=== PATIENT | female | born 1960 | race Caucasian/White ===

== ENCOUNTER 2017-08-02 13:09 | Observation (INO) | payer BC, OTHER ==
[2017-08-02 13:18] LABS: Glucose,Whole Blood 84 mg/dL (75-99)
--- NOTE | 2017-08-02 13:26 | ED ---
Weakness HPI - General Chief complaint: Weakness Stated complaint: poss cva Time Seen by Provider: 08/02/17 13:09 Source: patient, EMS, RN notes reviewed Mode of arrival: EMS Limitations: no limitations - History of Present Illness Initial comments: This is a 48-year-old female with a history of pain ductus arteriosus with repair in 1962 also history of hypertension and history of a seizure 1990 after having hyponatremia which she attributes to her Crohn's disease she also status post a colostomy. She states she started developing around 11 or 11:30 today some generalized weakness per paramedics who brought her and she had some delay in her speech but no focal weakness she initially had no headache and later complaining of a mild headache nonspecific. She had glucose 118. BP of 120/70 and heart rate of 80. She denies any recent fevers chills nausea vomiting sweats. She is a smoker we did discuss smoking cessation. MD Complaint: generalized weakness, lack of energy - Related Data Home Medications Medication Instructions Recorded Confirmed Esomeprazole Magnesium [NexIUM] 40 mg PO DAILY 01/07/14 08/02/17 Montelukast [Singulair] 10 mg PO DAILY 01/07/14 08/02/17 Sucralfate [Carafate] 1 gm PO BID 01/07/14 08/02/17 ALPRAZolam [Xanax] 0.5 mg PO DAILY PRN 08/02/17 08/02/17 Carisoprodol [Soma] 350 mg PO TID PRN 08/02/17 08/02/17 Ergocalciferol (Vitamin D2) 50,000 unit PO Q14D 08/02/17 08/02/17 [Vitamin D2] Magnesium Gluconate [Magonate] 500 mg PO DAILY 08/02/17 08/02/17 Metoprolol Tartrate [Lopressor] 12.5 mg PO BID 08/02/17 08/02/17 Zolpidem Tartrate [Ambien Cr] 12.5 mg PO HS PRN 08/02/17 08/02/17 Previous Rx's Medication Instructions Recorded Aspirin 81 mg PO DAILY #30 chew 01/08/14 Atorvastatin [Lipitor] 40 mg PO HS #30 tablet 01/08/14 Allergies Allergy/AdvReac Type Severity Reaction Status Date / Time ciprofloxacin [From Cipro] Allergy Swelling Verified 08/02/17 14:27 ciprofloxacin HCl Allergy Swelling Verified 08/02/17 14:27 [From Cipro] erythromycin base Allergy Vomiting Verified 08/02/17 14:27 [Erythromycin Base] morphine Allergy Vomiting Verified 08/02/17 14:27 povidone-iodine Allergy Rash/Hives Verified 08/02/17 14:27 [From Betadine] soap [From Betadine] Allergy Rash/Hives Verified 08/02/17 14:27 mushrooms Allergy Anaphylaxis Uncoded 11/05/14 16:46 Review of Systems ROS Statement: Those systems with pertinent positive or pertinent negative responses have been documented in the HPI. ROS Other: All systems not noted in ROS Statement are negative. 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, seasonal allergies, had 1 seizure in related to hyponeutremia melena PDA repair at 1 years of age, rotator cuff repair right sided lumpectomy total colectomy and ileostomy 1990 tonsillectomy and adenoidectomy is a cell carcinoma removed History of Any Multi-Drug Resistant Organisms: None Reported Past Surgical History: Bowel Resection, Breast Surgery Additional Past Surgical History / Comment(s): colectomy secondary to chrohns resulting in ileostomy, heart surgery when 1years old, bilateral rotator cuff, epidural back injections Past Anesthesia/Blood Transfusion Reactions: No Reported Reaction Past Psychological History: No Psychological Hx Reported Smoking Status: Light tobacco smoker Past Alcohol Use History: None Reported Past Drug Use History: None Reported - Past Family History Mother Family Medical History: Cancer, Coronary Artery Disease (CAD), Hypertension Additional Family Medical History / Comment(s): pt has had 1 seizure related to hyponeutremia Father Family Medical History: Coronary Artery Disease (CAD) General Exam - General Exam Comments Initial Comments: This is a well-developed well-nourished awake alert oriented 1 female Limitations: no limitations General appearance: alert, in no apparent distress Head exam: Present: atraumatic, normocephalic, normal inspection Eye exam: Present: normal appearance, PERRL, EOMI. Absent: scleral icterus, conjunctival injection, periorbital swelling ENT exam: Present: mucous membranes dry Neck exam: Present: normal inspection. Absent: tenderness, meningismus, lymphadenopathy Respiratory exam: Present: decreased breath sounds, other (Slightly decreased breath sounds with scattered wheezes that clear with deep breathing. No focal consolidations.). Absent: respiratory distress, wheezes, rales, rhonchi, stridor Cardiovascular Exam: Present: regular rate, normal rhythm, normal heart sounds. Absent: systolic murmur, diastolic murmur, rubs, gallop, clicks GI/Abdominal exam: Present: soft, normal bowel sounds. Absent: distended, tenderness, guarding, rebound, rigid Extremities exam: Present: normal inspection, full ROM, normal capillary refill. Absent: tenderness, pedal edema, joint swelling, calf tenderness Back exam: Present: normal inspection Neurological exam: Present: alert, oriented X3, CN II-XII intact Psychiatric exam: Present: normal affect, normal mood Skin exam: Present: warm, dry, intact, normal color. Absent: rash Course Vital Signs 08/02/17 08/02/17 08/02/17 13:12 13:21 14:21 Temperature 97.5 F L Pulse Rate 77 77 77 Respiratory 16 16 16 Rate Blood Pressure 133/79 111/64 111/64 O2 Sat by Pulse 99 97 96 Oximetry 08/02/17 15:43 Temperature Pulse Rate 76 Respiratory 16 Rate Blood Pressure 117/73 O2 Sat by Pulse 98 Oximetry - Reevaluation(s) Reevaluation #1: 08/02/17 15:48 We did discuss the findings. The patient and were present I did discuss the findings the patient's who did see the patient this morning she did have some evidence of service expressive aphasia and some difficulty walking which seemed to resolve relatively quickly. The presentation consistent with TIA EKG Findings - EKG Results: EKG: interpreted by ERMD, sinus rhythm (Sinus rhythm rate is 77 PA interval 174 QRS of 92 T-System QTC of 388/439 evidence of possible left atrial enlargement rightward axis no acute ST-T wave changes.) Medical Decision Making - Medical Decision Making Discuss [employer] the patient and her and her sister who was present. Patient be admitted for evaluation of TIA. - Lab Data Result diagrams: 08/02/17 13:34 08/02/17 13:34 Lab Results 08/02/17 08/02/17 08/02/17 Range/Units 13:16 13:34 13:34 WBC (3.8-10.6) k/uL RBC (3.80-5.40) m/uL Hgb (11.4-16.0) gm/dL Hct (34.0-46.0) % MCV (80.0-100.0) fL MCH (25.0-35.0) pg MCHC (31.0-37.0) g/dL RDW (11.5-15.5) % Plt Count (150-450) k/uL Neutrophils % % Lymphocytes % % Monocytes % % Eosinophils % % Basophils % % Neutrophils # (1.3-7.7) k/uL Lymphocytes # (1.0-4.8) k/uL Monocytes # (0-1.0) k/uL Eosinophils # (0-0.7) k/uL Basophils # (0-0.2) k/uL Sodium 129 L (137-145) mmol/L Potassium 4.5 (3.5-5.1) mmol/L Chloride 99 (98-107) mmol/L Carbon Dioxide 24 (22-30) mmol/L Anion Gap 6 mmol/L BUN 8 (7-17) mg/dL Creatinine 0.71 (0.52-1.04) mg/dL Est GFR (MDRD) Af Amer >60 (>60 ml/min/1.73 sqM) Est GFR (MDRD) Non-Af >60 (>60 ml/min/1.73 sqM) Glucose 77 (74-99) mg/dL POC Glucose (mg/dL) 84 (75-99) mg/dL POC Glu Trades Helper ID Radha Ovalle Calcium 9.0 (8.4-10.2) mg/dL Magnesium 1.7 (1.6-2.3) mg/dL Total Bilirubin 0.3 (0.2-1.3) mg/dL AST 22 (14-36) U/L ALT 25 (9-52) U/L Alkaline Phosphatase 90 (38-126) U/L Ammonia (<30) umol/L Total Creatine Kinase 44 (30-135) U/L CK-MB (CK-2) 1.4 (0.0-2.4) ng/mL CK-MB (CK-2) Rel Index 3.2 Troponin I <0.012 (0.000-0.034) ng/mL Total Protein 6.2 L (6.3-8.2) g/dL Albumin 3.4 L (3.5-5.0) g/dL Amylase 91 (30-110) U/L Lipase 54 (23-300) U/L TSH 0.897 (0.465-4.680) mIU/L Urine Color Urine Appearance (Clear) Urine pH (5.0-8.0) Ur Specific [place] (1.001-1.035) Urine Protein (Negative) Urine Glucose (UA) (Negative) Urine Ketones (Negative) Urine Blood (Negative) Urine Nitrite (Negative) Urine Bilirubin (Negative) Urine Urobilinogen (<2.0) mg/dL Ur Leukocyte Esterase (Negative) Urine Opiates Screen (NotDetected) Ur Oxycodone Screen (NotDetected) Urine Methadone Screen (NotDetected) Ur Propoxyphene Screen (NotDetected) Ur Barbiturates Screen (NotDetected) U Tricyclic Antidepress (NotDetected) Ur Phencyclidine Scrn (NotDetected) Ur Amphetamines Screen (NotDetected) U Methamphetamines Scrn (NotDetected) U Benzodiazepines Scrn (NotDetected) Urine Cocaine Screen (NotDetected) U Marijuana (THC) Screen (NotDetected) 08/02/17 08/02/17 08/02/17 Range/Units 13:34 14:42 15:06 WBC 7.9 (3.8-10.6) k/uL RBC 5.20 (3.80-5.40) m/uL Hgb 15.0 (11.4-16.0) gm/dL Hct 46.2 H (34.0-46.0) % MCV 88.9 (80.0-100.0) fL MCH 28.8 (25.0-35.0) pg MCHC 32.4 (31.0-37.0) g/dL RDW 13.8 (11.5-15.5) % Plt Count 130 L (150-450) k/uL Neutrophils % 43 % Lymphocytes % 42 % Monocytes % 9 % Eosinophils % 2 % Basophils % 1 % Neutrophils # 3.4 (1.3-7.7) k/uL Lymphocytes # 3.3 (1.0-4.8) k/uL Monocytes # 0.7 (0-1.0) k/uL Eosinophils # 0.1 (0-0.7) k/uL Basophils # 0.1 (0-0.2) k/uL Sodium (137-145) mmol/L Potassium (3.5-5.1) mmol/L Chloride (98-107) mmol/L Carbon Dioxide (22-30) mmol/L Anion Gap mmol/L BUN (7-17) mg/dL Creatinine (0.52-1.04) mg/dL Est GFR (MDRD) Af Amer (>60 ml/min/1.73 sqM) Est GFR (MDRD) Non-Af (>60 ml/min/1.73 sqM) Glucose (74-99) mg/dL POC Glucose (mg/dL) (75-99) mg/dL POC Glu Trades Helper ID Calcium (8.4-10.2) mg/dL Magnesium (1.6-2.3) mg/dL Total Bilirubin (0.2-1.3) mg/dL AST (14-36) U/L ALT (9-52) U/L Alkaline Phosphatase (38-126) U/L Ammonia 9 (<30) umol/L Total Creatine Kinase (30-135) U/L CK-MB (CK-2) (0.0-2.4) ng/mL CK-MB (CK-2) Rel Index Troponin I (0.000-0.034) ng/mL Total Protein (6.3-8.2) g/dL Albumin (3.5-5.0) g/dL Amylase (30-110) U/L Lipase (23-300) U/L TSH (0.465-4.680) mIU/L Urine Color Yellow Urine Appearance Clear (Clear) Urine pH 6.5 (5.0-8.0) Ur Specific [place] 1.011 (1.001-1.035) Urine Protein Negative (Negative) Urine Glucose (UA) Negative (Negative) Urine Ketones Negative (Negative) Urine Blood Negative (Negative) Urine Nitrite Negative (Negative) Urine Bilirubin Negative (Negative) Urine Urobilinogen <2.0 (<2.0) mg/dL Ur Leukocyte Esterase Negative (Negative) Urine Opiates Screen Not Detected (NotDetected) Ur Oxycodone Screen Not Detected (NotDetected) Urine Methadone Screen Not Detected (NotDetected) Ur Propoxyphene Screen Not Detected (NotDetected) Ur Barbiturates Screen Not Detected (NotDetected) U Tricyclic Antidepress Not Detected (NotDetected) Ur Phencyclidine Scrn Not Detected (NotDetected) Ur Amphetamines Screen Not Detected (NotDetected) U Methamphetamines Scrn Not Detected (NotDetected) U Benzodiazepines Scrn Detected H (NotDetected) Urine Cocaine Screen Not Detected (NotDetected) U Marijuana (THC) Screen Not Detected (NotDetected) - Radiology Data Radiology results: report reviewed (I did review the imaging and report no acute findings.), image reviewed Disposition Clinical Impression: TIA (transient ischemic attack) Disposition: ADMITTED IP TO THIS [facility] Condition: Stable Referrals: Benito Diaz MD [Primary Care Provider] - 1-2 days
[2017-08-02 13:43] LABS: Basophils # (A) 0.1 k/uL (0-0.2); Basophils % (A) 1 %; Eosinophils # (A) 0.1 k/uL (0-0.7); Eosinophils % (A) 2 %; HCT 46.2 % (34.0-46.0); Lymphocytes # (A) 3.3 k/uL (1.0-4.8); Lymphocytes % (A) 42 %; MCH 28.8 pg (25.0-35.0); MCHC 32.4 g/dL (31.0-37.0); MCV 88.9 fL (80.0-100.0); Mean Platelet Volume 7.3; Monocytes # (A) 0.7 k/uL (0-1.0); Monocytes % (A) 9 %; Neutrophils # (A) 3.4 k/uL (1.3-7.7); Neutrophils % (A) 43 %; Platelet Count 130 k/uL (150-450); RDW 13.8 % (11.5-15.5); WBC 7.9 k/uL (3.8-10.6)
[2017-08-02 13:55] LABS: ALT 25 U/L (9-52); AST 22 U/L (14-36); Albumin 3.4 g/dL (3.5-5.0); Alkaline Phosphatase 90 U/L (38-126); Amylase 91 U/L (30-110); Anion Gap 6 mmol/L; Blood Urea Nitrogen 8 mg/dL (7-17); Carbon Dioxide 24 mmol/L (22-30); Chloride 99 mmol/L (98-107); Glucose 77 mg/dL (74-99); Lipase 54 U/L (23-300); Magnesium 1.7 mg/dL (1.6-2.3); Potassium 4.5 mmol/L (3.5-5.1); Sodium 129 mmol/L (137-145); Total Bilirubin 0.3 mg/dL (0.2-1.3); Total Protein 6.2 g/dL (6.3-8.2)
[2017-08-02 14:02] LABS: Creatine Kinase 44 U/L (30-135)
--- NOTE | 2017-08-02 14:11 | CT ---
EXAMINATION TYPE: CT brain wo con DATE OF EXAM: 08/02/2017 HISTORY: Possible CVA. Difficulty speaking now with headache. CT DLP: 981.7 mGycm. Automated Exposure Control for Dose Reduction was Utilized. TECHNIQUE: CT scan of the head is performed without contrast. COMPARISON: None. FINDINGS: There is no acute intracranial hemorrhage or midline shift identified. Flannery-white matter differentiation is maintained. Ventricles and sulci are within normal limits in size The globes are i ntact and the visualized sinuses are clear. IMPRESSION: No acute intracranial hemorrhage or midline shift. Unremarkable study. If clinical concern for acute stroke persists further investigation with MRI study may be warranted.
[2017-08-02 14:15] LABS: Creatine Kinase MB 1.4 ng/mL (0.0-2.4); Troponin I <0.012 ng/mL (0.000-0.034)
--- NOTE | 2017-08-02 14:35 | XR ---
EXAMINATION TYPE: XR chest 2V DATE OF EXAM: 08/02/2017 COMPARISON: Chest x-ray January 07, 2014 HISTORY: Cough per order. TECHNIQUE: Frontal and lateral views of the chest are obtained. FINDINGS: There is chronic parenchymal change without suspicious focal air space opacity, pleural ef fusion, or pneumothorax seen. The cardiac silhouette size is upper limits of normal. The osseous s tructures are demineralized. Mild to moderate compression type fracture deformity roughly T6 level is redemonstrated on lateral view felt stable. IMPRESSION: Chronic changes without acute pulmonary process. No significant change from prior.
[2017-08-02 15:15] LABS: Appearance,Urine Clear (Clear); Bilirubin,Urine Negative (Negative); Blood,Urine Negative (Negative); Color,Urine Yellow; Glucose,Urine (UA) Negative (Negative); Ketones,Urine Negative (Negative); Leukocyte Esterase,Urine Negative (Negative); Nitrite,Urine Negative (Negative); PH, Urine 6.5 (5.0-8.0); Protein,Urine Negative (Negative); Specific Gravity,Urine 1.011 (1.001-1.035); Urobilinogen,Urine <2.0 mg/dL (<2.0)
[2017-08-02 15:25] LABS: Amphetamine Screen,Urine Not Detected (NotDetected); Barbiturate Screen,Urine Not Detected (NotDetected); Benzodiazepines Screen,Urine Detected (NotDetected); Cocaine Screen,Urine Not Detected (NotDetected); Methadone Screen, Urine Not Detected (NotDetected); Opiate Screen,Urine Not Detected (NotDetected); Oxycodone Screen, Urine Not Detected (NotDetected); Phencyclidine Screen,Urine Not Detected (NotDetected); Tricyclic Antidepressant,Urine Not Detected (NotDetected); Urn Cannabinoid Scrn Not Detected (NotDetected)
[2017-08-02] MEDS ORDERED: ACETAMINOPHEN TAB 325 MG TAB PO STA (15:37)
[2017-08-02] MEDS ORDERED: ZOLPIDEM 5 MG TAB PO PRN (15:51)
[2017-08-02] MEDS ORDERED: ALPRAZolam 0.5 MG TAB PO PRN (15:51)
--- NOTE | 2017-08-02 15:53 | ED ---
Medical Decision Making - Lab Data Result diagrams: 08/02/17 13:34 08/02/17 13:34 Lab Results 08/02/17 08/02/17 08/02/17 Range/Units 13:16 13:34 13:34 WBC (3.8-10.6) k/uL RBC (3.80-5.40) m/uL Hgb (11.4-16.0) gm/dL Hct (34.0-46.0) % MCV (80.0-100.0) fL MCH (25.0-35.0) pg MCHC (31.0-37.0) g/dL RDW (11.5-15.5) % Plt Count (150-450) k/uL Neutrophils % % Lymphocytes % % Monocytes % % Eosinophils % % Basophils % % Neutrophils # (1.3-7.7) k/uL Lymphocytes # (1.0-4.8) k/uL Monocytes # (0-1.0) k/uL Eosinophils # (0-0.7) k/uL Basophils # (0-0.2) k/uL Sodium 129 L (137-145) mmol/L Potassium 4.5 (3.5-5.1) mmol/L Chloride 99 (98-107) mmol/L Carbon Dioxide 24 (22-30) mmol/L Anion Gap 6 mmol/L BUN 8 (7-17) mg/dL Creatinine 0.71 (0.52-1.04) mg/dL Est GFR (MDRD) Af Amer >60 (>60 ml/min/1.73 sqM) Est GFR (MDRD) Non-Af >60 (>60 ml/min/1.73 sqM) Glucose 77 (74-99) mg/dL POC Glucose (mg/dL) 84 (75-99) mg/dL POC Glu Store Manager ID Radha Ovalle Calcium 9.0 (8.4-10.2) mg/dL Magnesium 1.7 (1.6-2.3) mg/dL Total Bilirubin 0.3 (0.2-1.3) mg/dL AST 22 (14-36) U/L ALT 25 (9-52) U/L Alkaline Phosphatase 90 (38-126) U/L Ammonia (<30) umol/L Total Creatine Kinase 44 (30-135) U/L CK-MB (CK-2) 1.4 (0.0-2.4) ng/mL CK-MB (CK-2) Rel Index 3.2 Troponin I <0.012 (0.000-0.034) ng/mL Total Protein 6.2 L (6.3-8.2) g/dL Albumin 3.4 L (3.5-5.0) g/dL Amylase 91 (30-110) U/L Lipase 54 (23-300) U/L TSH 0.897 (0.465-4.680) mIU/L Urine Color Urine Appearance (Clear) Urine pH (5.0-8.0) Ur Specific [place] (1.001-1.035) Urine Protein (Negative) Urine Glucose (UA) (Negative) Urine Ketones (Negative) Urine Blood (Negative) Urine Nitrite (Negative) Urine Bilirubin (Negative) Urine Urobilinogen (<2.0) mg/dL Ur Leukocyte Esterase (Negative) Urine Opiates Screen (NotDetected) Ur Oxycodone Screen (NotDetected) Urine Methadone Screen (NotDetected) Ur Propoxyphene Screen (NotDetected) Ur Barbiturates Screen (NotDetected) U Tricyclic Antidepress (NotDetected) Ur Phencyclidine Scrn (NotDetected) Ur Amphetamines Screen (NotDetected) U Methamphetamines Scrn (NotDetected) U Benzodiazepines Scrn (NotDetected) Urine Cocaine Screen (NotDetected) U Marijuana (THC) Screen (NotDetected) 08/02/17 08/02/17 08/02/17 Range/Units 13:34 14:42 15:06 WBC 7.9 (3.8-10.6) k/uL RBC 5.20 (3.80-5.40) m/uL Hgb 15.0 (11.4-16.0) gm/dL Hct 46.2 H (34.0-46.0) % MCV 88.9 (80.0-100.0) fL MCH 28.8 (25.0-35.0) pg MCHC 32.4 (31.0-37.0) g/dL RDW 13.8 (11.5-15.5) % Plt Count 130 L (150-450) k/uL Neutrophils % 43 % Lymphocytes % 42 % Monocytes % 9 % Eosinophils % 2 % Basophils % 1 % Neutrophils # 3.4 (1.3-7.7) k/uL Lymphocytes # 3.3 (1.0-4.8) k/uL Monocytes # 0.7 (0-1.0) k/uL Eosinophils # 0.1 (0-0.7) k/uL Basophils # 0.1 (0-0.2) k/uL Sodium (137-145) mmol/L Potassium (3.5-5.1) mmol/L Chloride (98-107) mmol/L Carbon Dioxide (22-30) mmol/L Anion Gap mmol/L BUN (7-17) mg/dL Creatinine (0.52-1.04) mg/dL Est GFR (MDRD) Af Amer (>60 ml/min/1.73 sqM) Est GFR (MDRD) Non-Af (>60 ml/min/1.73 sqM) Glucose (74-99) mg/dL POC Glucose (mg/dL) (75-99) mg/dL POC Glu Store Manager ID Calcium (8.4-10.2) mg/dL Magnesium (1.6-2.3) mg/dL Total Bilirubin (0.2-1.3) mg/dL AST (14-36) U/L ALT (9-52) U/L Alkaline Phosphatase (38-126) U/L Ammonia 9 (<30) umol/L Total Creatine Kinase (30-135) U/L CK-MB (CK-2) (0.0-2.4) ng/mL CK-MB (CK-2) Rel Index Troponin I (0.000-0.034) ng/mL Total Protein (6.3-8.2) g/dL Albumin (3.5-5.0) g/dL Amylase (30-110) U/L Lipase (23-300) U/L TSH (0.465-4.680) mIU/L Urine Color Yellow Urine Appearance Clear (Clear) Urine pH 6.5 (5.0-8.0) Ur Specific [place] 1.011 (1.001-1.035) Urine Protein Negative (Negative) Urine Glucose (UA) Negative (Negative) Urine Ketones Negative (Negative) Urine Blood Negative (Negative) Urine Nitrite Negative (Negative) Urine Bilirubin Negative (Negative) Urine Urobilinogen <2.0 (<2.0) mg/dL Ur Leukocyte Esterase Negative (Negative) Urine Opiates Screen Not Detected (NotDetected) Ur Oxycodone Screen Not Detected (NotDetected) Urine Methadone Screen Not Detected (NotDetected) Ur Propoxyphene Screen Not Detected (NotDetected) Ur Barbiturates Screen Not Detected (NotDetected) U Tricyclic Antidepress Not Detected (NotDetected) Ur Phencyclidine Scrn Not Detected (NotDetected) Ur Amphetamines Screen Not Detected (NotDetected) U Methamphetamines Scrn Not Detected (NotDetected) U Benzodiazepines Scrn Detected H (NotDetected) Urine Cocaine Screen Not Detected (NotDetected) U Marijuana (THC) Screen Not Detected (NotDetected) Disposition Clinical Impression: TIA (transient ischemic attack), Smoking Disposition: ADMITTED IP TO THIS [facility] Condition: Stable Referrals: Benito Diaz MD [Primary Care Provider] - 1-2 days
[2017-08-02] MEDS ORDERED: NICOTINE 7MG/24HR PATCH TRANSDERM STA (15:56)
[2017-08-02] MEDS ORDERED: SODIUM CHLORIDE 0.9% 1,000 ML IV SCH (16:00)
[2017-08-02] MEDS ORDERED: ERGOCALCIFEROL 50,000 UNIT CAP PO SCH (17:00)
[2017-08-02] MEDS: ASPIRIN 325 MG TAB PO SCH (17:41)
[2017-08-02 19:05] VITALS: BMI 26.6
[2017-08-02] MEDS ORDERED: ATORVASTATIN 40 MG TAB PO SCH (21:00)
[2017-08-02] MEDS: SUCRALFATE 1 GM TAB PO SCH (21:37)
[2017-08-02] MEDS: METOPROLOL TARTRATE 12.5 MG TAB PO SCH (21:37)
[2017-08-02 22:54] VITALS: RESP 18
[2017-08-03] MEDS: CARISOPRODOL 350 MG TAB PO PRN ×2 (01:13→06:11)
[2017-08-03 05:03] LABS: Cholesterol 142 mg/dL (<200); HDL Cholesterol 84 mg/dL (40-60); LDL Cholesterol,Calculated 45 mg/dL (0-99); Triglycerides 67 mg/dL (<150)
[2017-08-03] MEDS ORDERED: PANTOPRAZOLE 40 MG TABLET PO SCH (07:30)
[2017-08-03] MEDS: ASPIRIN 325 MG TAB PO SCH (08:08)
[2017-08-03] MEDS: METOPROLOL TARTRATE 12.5 MG TAB PO SCH (08:09)
[2017-08-03] MEDS: SUCRALFATE 1 GM TAB PO SCH (08:09)
[2017-08-03] MEDS ORDERED: MONTELUKAST 10 MG TAB PO SCH (09:00)
[2017-08-03] MEDS ORDERED: MAGNESIUM OXIDE 400 MG TAB PO SCH (09:00)
--- NOTE | 2017-08-03 11:42 | US ---
EXAMINATION TYPE: US carotid duplex BILAT DATE OF EXAM: 08/03/2017 COMPARISON: NONE CLINICAL HISTORY: Stenosis. EXAM MEASUREMENTS: RIGHT: Peak Systolic Velocity (PSV) cm/sec ----- Right CCA: 62.5 ----- Right ICA: 60.6 ----- Right ECA: 58.1 ICA/CCA ratio: 1.0 RIGHT: End Diastole cm/sec ----- Right CCA: 18.0 ----- Right ICA: 17.8 ----- Right ECA: 9.8 LEFT: Peak Systolic Velocity (PSV) cm/sec ----- Left CCA: 54.8 ----- Left ICA: 53.6 ----- Left ECA: 45.6 ICA/CCA ratio: 1.0 LEFT: End Diastole cm/sec ----- Left CCA: 19.7 ----- Left ICA: 23.1 ----- Left ECA: 9.4 VERTEBRALS (direction of flow): Right Vertebral: Antegrade Left Vertebral: Antegrade Technologist reports possible arrhythmia. Minimal plaque, no significant velocity elevations. Grayscale, color Doppler, spectral Doppler imaging performed of the carotid arteries. IMPRESSION: No hemodynamic significant stenosis of the proximal internal carotid arteries bilaterall y by Doppler criteria, an indirect measurement of carotid stenosis. Additional findings above.
--- NOTE | 2017-08-03 11:50 | ECHOF ---
Referral Reason:TIA MEASUREMENTS -------- HEIGHT: 147.3 cm WEIGHT: 71.7 kg BP: 122/78 RVIDd: 2.7 cm (< 3.3) IVSd: 1.0 cm (0.6 - 1.1) LVIDd: 3.0 cm (3.9 - 5.3) LVPWd: 0.9 cm (0.6 - 1.1) IVSs: 1.4 cm LVIDs: 2.2 cm LVPWs: 1.4 cm LA Diam: 2.5 cm (2.7 - 3.8) LAESV Index (A-L): 14.21 ml/m Ao Diam: 2.8 cm (2.0 - 3.7) AV Cusp: 2.0 cm (1.5 - 2.6) MV EXCURSION: 17.701 mm (> 18.000) MV EF SLOPE: 84 mm/s (70 - 150) EPSS: 0.5 cm MV E Joel: 0.93 m/s MV DecT: 216 ms MV A Joel: 0.88 m/s MV E/A Ratio: 1.05 AV maxP.13 mmHg AV meanP.44 mmHg RAP: 5.00 mmHg RVSP: 31.05 mmHg FINDINGS -------- Sinus rhythm. This was a technically adequate study. The left ventricular size is normal. Left ventricular wall thickness is normal. Overall left vent ricular systolic function is normal with, an EF between 55 - 60 %. The right ventricle is normal in size. Normal LA size by volume 22+/-6 ml/m2. The right atrium is normal in size. The aortic valve was not well visualized. There is moderate aortic valve sclerosis. Cannot Exclude Bicuspid AV Mild mitral annular calcification present. The tricuspid valve appears structurally normal. The pulmonic valve was not well visualized. The aortic root size is normal. Normal inferior vena cava with normal inspiratory collapse consistent with estimated right atrial pre ssure of 5 mmHg. There is no pericardial effusion. CONCLUSIONS -------- 1. Sinus rhythm. 2. This was a technically adequate study. 3. The left ventricular size is normal. 4. Left ventricular wall thickness is normal. 5. Overall left ventricular systolic function is normal with, an EF between 55 - 60 %. 6. The right ventricle is normal in size. 7. Normal LA size by volume 22+/-6 ml/m2. 8. The right atrium is normal in size. 9. There is moderate aortic valve sclerosis. 10. Mild mitral annular calcification present. 11. The tricuspid valve appears structurally normal. 12. The pulmonic valve was not well visualized. 13. The aortic root size is normal. 14. Normal inferior vena cava with normal inspiratory collapse consistent with estimated right atrial pressure of 5 mmHg. 15. There is no pericardial effusion. BED WORKER: Bárbara Snowden RDCS
--- NOTE | 2017-08-03 11:52 | P.HPIM ---
History of Present Illness H&P Date: 08/03/17 Chief Complaint: TIA 56 years old female patient of Dr. Diaz, with past medical history of hypertension, hyperlipidemia, GERD, chronic back pain from degenerative disc disease, Crohn's disease status post colectomy and ileostomy in 1990, history of patent ductus arteriosus S child, asthma and COPD presents with sudden onset of slurring of speech associated with shakiness and jitteriness. Patient states she has not been eating well for the past few days and has noticed increased ileostomy output for the past few days. Patient did have her morning breakfast but did not check her glucose in the morning. She does have hyponatremia since she was treated with ileostomy due to increased output and hypovolemia and feels she might be dehydrated. Patient denies any previous episodes of slurring of speech. She does document seizure from hyponatremia. Patient denies any change in sensation or loss of motor power. CT head done in the ER was negative. EKG negative for any ST or T-wave changes. Labs were unremarkable glucose of 77. Patient is admitted for concern of TIA and slurring of speech was not explained. Orthostatic will be ordered. Carotid Doppler and echocardiogram is ordered. Neurology recommendations are pending. 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 Patient's presentation is likely secondary to dehydration but slurring of speech could not be explained so need complete workup of TIA and will be admitted. Review of Systems Constitutional: Denies chills, Denies fever, Denies lethargy, Denies malaise, endorses poor appetite, Denies weakness, Denies weight loss Eyes: denies decreased vision, denies diplopia, denies discharge, denies pain Ears: deny: decreased hearing Ears, nose, mouth and throat: Denies dental pain, Denies headache, Denies nasal discharge, Denies nose pain Cardiovascular: Denies chest pain, Denies decreased exercise tolerance, Denies edema, Denies high blood pressure, Denies irregular heart beat, Denies palpitations, Denies paroxysmal nocturnal dyspnea, Denies rapid heart beat, Denies shortness of breath Respiratory: Denies congestion, Denies cough, Denies cough with sputum, Denies dyspnea, Denies home oxygen, Denies wheezing Gastrointestinal: Denies abdominal pain, Denies change in bowel habits, Denies coffee ground emesis, Denies early satiety, Denies excessive gas, Denies heartburn, Denies hematemesis, Denies hematochezia, Denies loss of appetite, Denies nausea, Denies vomiting Genitourinary: Denies dysuria, Denies flank pain, Denies kidney stones, Denies menorrhagia, Denies urgency, Denies urinary frequency Musculoskeletal: Denies gait dysfunction, Denies limitation of motion, Denies morning stiffness, Denies muscle cramps Integumentary: Denies rash, Denies wounds, Denies brittle nails, Denies change in hair/nails, Denies darkening of skin Neurological: Denies balance difficulties, endorses brief period of change in speech, Denies double vision, Denies gait dysfunction, Denies loss of vision, Denies motor disturbance, Denies numbness, Denies paralysis, Denies paresthesias , Denies seizures Psychiatric: Denies anxiety, Denies depression Endocrine: Denies excessive sweating, Denies excessive thirst, Denies high blood sugars, Denies palpitations Hematologic/Lymphatic: Denies easy bruising, Denies lymphadenopathy 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, seasonal allergies, had 1 seizure in related to hyponeutremia melena PDA repair at 1 years of age, rotator cuff repair right sided lumpectomy total colectomy and ileostomy 1990 tonsillectomy and adenoidectomy is a cell carcinoma removed History of Any Multi-Drug Resistant Organisms: None Reported Past Surgical History: Bowel Resection, Breast Surgery Additional Past Surgical History / Comment(s): colectomy secondary to chrohns resulting in ileostomy, heart surgery when 1years old, bilateral rotator cuff, epidural back injections Past Anesthesia/Blood Transfusion Reactions: No Reported Reaction Past Psychological History: No Psychological Hx Reported Smoking Status: Light tobacco smoker Past Alcohol Use History: None Reported Past Drug Use History: None Reported - Past Family History Mother Family Medical History: Cancer, Coronary Artery Disease (CAD), Hypertension Additional Family Medical History / Comment(s): pt has had 1 seizure related to hyponeutremia Father Family Medical History: Coronary Artery Disease (CAD) Medications and Allergies Home Medications Medication Instructions Recorded Confirmed Type Esomeprazole Magnesium [NexIUM] 40 mg PO DAILY 01/07/14 08/02/17 History Montelukast [Singulair] 10 mg PO DAILY 01/07/14 08/02/17 History Sucralfate [Carafate] 1 gm PO BID 01/07/14 08/02/17 History Aspirin 81 mg PO DAILY #30 chew 01/08/14 08/02/17 Rx Atorvastatin [Lipitor] 40 mg PO HS #30 tablet 01/08/14 08/02/17 Rx ALPRAZolam [Xanax] 0.5 mg PO DAILY PRN 08/02/17 08/02/17 History Carisoprodol [Soma] 350 mg PO TID PRN 08/02/17 08/02/17 History Ergocalciferol (Vitamin D2) 50,000 unit PO Q14D 08/02/17 08/02/17 History [Vitamin D2] Magnesium Gluconate [Magonate] 500 mg PO DAILY 08/02/17 08/02/17 History Metoprolol Tartrate [Lopressor] 12.5 mg PO BID 08/02/17 08/02/17 History Zolpidem Tartrate [Ambien Cr] 12.5 mg PO HS PRN 08/02/17 08/02/17 History Allergies Allergy/AdvReac Type Severity Reaction Status Date / Time ciprofloxacin [From Cipro] Allergy Swelling Verified 08/02/17 14:27 ciprofloxacin HCl Allergy Swelling Verified 08/02/17 14:27 [From Cipro] erythromycin base Allergy Vomiting Verified 08/02/17 14:27 [Erythromycin Base] morphine Allergy Vomiting Verified 08/02/17 14:27 povidone-iodine Allergy Rash/Hives Verified 08/02/17 14:27 [From Betadine] soap [From Betadine] Allergy Rash/Hives Verified 08/02/17 14:27 mushrooms Allergy Anaphylaxis Uncoded 11/05/14 16:46 Physical Exam Vitals: Vital Signs Temp Pulse Pulse Resp BP BP Pulse Ox 08/03/17 07:30 97.1 F L 74 18 127/75 94 L 08/03/17 05:30 82 18 122/78 95 08/03/17 03:41 79 18 08/03/17 03:30 79 18 120/74 92 L 08/03/17 01:30 75 18 120/70 96 08/03/17 00:00 75 18 08/02/17 23:30 75 18 112/69 96 08/02/17 20:00 78 18 08/02/17 19:30 96.9 F L 78 18 96/63 92 L 08/02/17 18:30 80 16 119/71 95 08/02/17 16:30 97.7 F 76 16 133/87 99 08/02/17 16:09 98.3 F 75 16 120/76 98 08/02/17 15:43 76 16 117/73 98 08/02/17 14:21 77 16 111/64 96 08/02/17 13:21 77 16 111/64 97 08/02/17 13:12 97.5 F L 77 16 133/79 99 Intake and Output 08/02/17 08/03/17 08/03/17 22:59 06:59 14:59 Intake Total 240 120 Balance 240 120 Intake: Oral 240 120 Other: Voiding Method Toilet Toilet # Voids 1 1 # Bowel Movements 0 1 Weight 54 kg 69.5 kg - Constitutional General appearance: cooperative, no acute distress, obese - EENT Eyes: anicteric sclerae, PERRLA, normal appearance ENT: hearing grossly normal - Neck Neck: no lymphadenopathy, normal ROM, no other, no rigidity, no stridor, no thyromegaly - Respiratory Respiratory: bilateral: CTA, negative: diminished, dullness, rales, rhonchi - Cardiovascular Rhythm: regular Heart sounds: normal: S1, S2, central scar from previous surgery on the anterior chest, healed Abnormal Heart Sounds: no systolic murmur, no diastolic murmur, no rub, no S3 Gallop, no S4 Gallop, no click, no other - Gastrointestinal General gastrointestinal: normal bowel sounds, soft, ileostomy site appeared without any sign of inflammation. - Integumentary Integumentary: no rash - Neurologic Neurologic: CNII-XII intact speech normal no facial droop or loss of sensation or muscle power. - Musculoskeletal Musculoskeletal: gait normal, strength equal bilaterally - Psychiatric Psychiatric: A&O x's 3, appropriate affect Results CBC & Chem 7: 08/02/17 13:34 08/02/17 13:34 Labs: Abnormal Lab Results - Last 24 Hours (Table) 08/02/17 08/02/17 08/02/17 Range/Units 13:34 13:34 15:06 Hct 46.2 H (34.0-46.0) % Plt Count 130 L (150-450) k/uL Sodium 129 L (137-145) mmol/L Total Protein 6.2 L (6.3-8.2) g/dL Albumin 3.4 L (3.5-5.0) g/dL HDL Cholesterol (40-60) mg/dL U Benzodiazepines Scrn Detected H (NotDetected) 08/03/17 Range/Units 04:26 Hct (34.0-46.0) % Plt Count (150-450) k/uL Sodium (137-145) mmol/L Total Protein (6.3-8.2) g/dL Albumin (3.5-5.0) g/dL HDL Cholesterol 84 H (40-60) mg/dL U Benzodiazepines Scrn (NotDetected) Thrombosis Risk Factor Assmnt - DVT/VTE Prophylaxis DVT/VTE Prophylaxis: Mechanical Prophylaxis ordered - Choose All That Apply Each Factor Represents 1 point: Abnormal pulmonary function (COPD), Age 41-60 years Thrombosis Risk Factor Assessment Total Risk Factor Score: 2 Thrombosis Risk Factor Assessment Level: Low Risk Assessment and Plan Plan: 1. Slurring of speech associated with jitteriness likely secondary to TIA, other possibility includes dehydration from increased ileostomy output. Patient does have hyponatremia from hypovolemia, unlikely to be causing the symptoms at this point. We will continue neuro checks every shift, maintain permissive hypertension, carotid Dopplers and echocardiogram ordered, neurology consult placed patient is started on aspirin and statin. Orthostatic check to rule out orthostatic hypotension 2. History of hypertension on metoprolol is added 3. History of asthma as well as COPD currently on Pulmicort and when necessary albuterol and Singulair 4.. GERD on Nexium and Carafate 5. Insomnia requesting increase of Ambien to 10 mg at bedtime 6. Hyponatremia likely secondary to hypovolemia- maintain oral fluid, vitalsstable patient not tachycardic 7. Crohn's disease status post colectomy and ileostomy- stable 8. DVT prophylaxis with heparin every 12 CODE STATUS full code
[2017-08-03 12:28] VITALS: TEMP 97
[2017-08-03 12:30] VITALS: BP 119/75; PULSE 75
--- NOTE | 2017-08-03 15:34 | P.DS ---
Providers Date of admission: 08/02/17 15:49 Expected date of discharge: 08/03/17 Attending physician: Rafael Galvin MD Primary care physician: [facility] Hospital Course: 56 years old female patient of Dr. Diaz, with past medical history of hypertension, hyperlipidemia, GERD, chronic back pain from degenerative disc disease, Crohn's disease status post colectomy and ileostomy in 1990, history of patent ductus arteriosus S child, asthma and COPD presents with sudden onset of slurring of speech associated with shakiness and jitteriness. Patient states she has not been eating well for the past few days and has noticed increased ileostomy output for the past few days. Patient did have her morning breakfast but did not check her glucose in the morning. She does have hyponatremia since she was treated with ileostomy due to increased output and hypovolemia and feels she might be dehydrated. Patient denies any previous episodes of slurring of speech. She does document seizure from hyponatremia. Patient denies any change in sensation or loss of motor power. CT head done in the ER was negative. EKG negative for any ST or T-wave changes. Labs were unremarkable glucose of 77. Patient is admitted for concern of TIA and slurring of speech was not explained. Orthostatic negative. carotid Doppler and echocardiogram is negative. 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 Patient's presentation is likely secondary to TIA though dehydration and hypernatremia would have placed a role for the generalized weakness. Patient is asymptomatic on examination. Discharge diagnosis 1. Slurring of speech associated with jitteriness likely secondary to TIA 2. History of hypertension 3. History of asthma as well as COPD 4.. GERD 5. Insomnia 6. Hyponatremia 7. Crohn's disease status post colectomy and ileostomy CC a copy of discharge to Dr. Diaz Disposition home with self-care PT OT evaluated the patient no need for physical therapy Patient Condition at Discharge: Stable Plan - Discharge Summary New Discharge Prescriptions: Continue RX: Montelukast [Singulair] 10 mg PO DAILY RX: Esomeprazole Magnesium [NexIUM] 40 mg PO DAILY RX: Sucralfate [Carafate] 1 gm PO BID RX: Aspirin 81 mg PO DAILY #30 chew RX: Atorvastatin [Lipitor] 40 mg PO HS #30 tablet RX: Metoprolol Tartrate [Lopressor] 12.5 mg PO BID RX: Magnesium Gluconate [Magonate] 500 mg PO DAILY RX: Ergocalciferol (Vitamin D2) [Vitamin D2] 50,000 unit PO Q14D RX: ALPRAZolam [Xanax] 0.5 mg PO DAILY PRN PRN Reason: Anxiety RX: Zolpidem Tartrate [Ambien Cr] 12.5 mg PO HS PRN PRN Reason: Insomnia RX: Carisoprodol [Soma] 350 mg PO TID PRN PRN Reason: Muscle Pain Discharge Medication List RX: Esomeprazole Magnesium [NexIUM] 40 mg PO DAILY 01/07/14 [History] RX: Montelukast [Singulair] 10 mg PO DAILY 01/07/14 [History] RX: Sucralfate [Carafate] 1 gm PO BID 01/07/14 [History] RX: Aspirin 81 mg PO DAILY #30 chew 01/08/14 [Rx] RX: Atorvastatin [Lipitor] 40 mg PO HS #30 tablet 01/08/14 [Rx] RX: ALPRAZolam [Xanax] 0.5 mg PO DAILY PRN 08/02/17 [History] RX: Carisoprodol [Soma] 350 mg PO TID PRN 08/02/17 [History] RX: Ergocalciferol (Vitamin D2) [Vitamin D2] 50,000 unit PO Q14D 08/02/17 [ History] RX: Magnesium Gluconate [Magonate] 500 mg PO DAILY 08/02/17 [History] RX: Metoprolol Tartrate [Lopressor] 12.5 mg PO BID 08/02/17 [History] RX: Zolpidem Tartrate [Ambien Cr] 12.5 mg PO HS PRN 08/02/17 [History] Follow up Appointment(s)/Referral(s): Benito Diaz MD [Primary Care Provider] - 1 Week (Please call office to schedule follow up appointment. ) Patient Instructions/Handouts: Transient Ischemic Attack (DC), How to Stop Smoking (DC) Discharge Disposition: HOME SELF-CARE
[2017-08-03] MEDS ORDERED: HEPARIN SODIUM,PORCINE 5,000 UNIT/ML 1 ML VIAL SQ SCH (21:00)
[2017-08-04] MEDS ORDERED: ASPIRIN 81 MG PO SCH (09:00)
== END 2017-08-03 15:28 | disposition home or self-care (01) ==
LOC: EC 13:09 → 6SEL 15:49 → INTOOBSV 15:49
PROVIDERS: ADMIT Internal Medicine; ATTEND Internal Medicine
DX: R47.81 Slurred speech (principal); R53.1 Weakness; G45.9 Transient cerebral ischemic attack, unspecified; I10 Essential (primary) hypertension; J44.9 Chronic obstructive pulmonary disease, unspecified; K21.9 Gastro-esophageal reflux disease without esophagitis; G47.00 Insomnia, unspecified; E87.1 Hypo-osmolality and hyponatremia; Z90.49 Acquired absence of other specified parts of digestive tract; Z93.2 Ileostomy status; K50.911 Crohn's disease, unspecified, with rectal bleeding; E78.5 Hyperlipidemia, unspecified; M54.9 Dorsalgia, unspecified; G89.29 Other chronic pain; E86.1 Hypovolemia; E87.0 Hyperosmolality and hypernatremia; E86.0 Dehydration; J30.2 Other seasonal allergic rhinitis; F17.200 Nicotine dependence, unspecified, uncomplicated; Z79.899 Other long term (current) drug therapy; Z88.1 Allergy status to other antibiotic agents; Z88.5 Allergy status to narcotic agent; Z91.018 Allergy to other foods; Z91.048 Other nonmedicinal substance allergy status; Z79.82 Long term (current) use of aspirin; Z82.49 Family history of ischemic heart disease and other diseases of the circulatory system; Z80.9 Family history of malignant neoplasm, unspecified; Z87.01 Personal history of pneumonia (recurrent); Z87.74 Personal history of (corrected) congenital malformations of heart and circulatory system
CPT/HCPCS: 99285; 36415; 93005; 93306; 80061; 80053; 84443; 82140; 82150; 82550; 82553; 83690; 83735; 84484 ×2; 85025; 81003; 84146; 80306; 71020; 93880; 70450; G0378 ×2; S4990

== ENCOUNTER → 2020-05-14 | Outpatient (CLI) | payer BC | END | disposition home or self-care (01) | LOC: LABWHC1 08:24 | PROVIDERS: ATTEND Internal Medicine Geriatric Medicine | DX: Z20.828 Contact with and (suspected) exposure to other viral communicable diseases (principal) | CPT/HCPCS: U0003; C9803 ==

== ENCOUNTER 2022-01-14 12:00 | Emergency (ER) | payer BC ==
[2022-01-14 12:14] VITALS: RESP 18
[2022-01-14 12:15] VITALS: TEMP 98.2
[2022-01-14] MEDS ORDERED: HYDROmorphone 0.5 MG/0.5 ML SYRINGE IVP STA (12:22)
--- NOTE | 2022-01-14 12:53 | XR ---
EXAMINATION TYPE: XR tibia fibula RT DATE OF EXAM: 01/14/2022 COMPARISON: NONE HISTORY: pain TECHNIQUE: Two views are submitted. FINDINGS: Diffuse osteopenia. There is a displaced fracture involving the neck of the proximal fibula. There is a linear lucency extending to the articular surface suspicious for a tibial plateau fracture. Recomm end CT scan of the knee. Diffuse osteopenia. Soft tissue edema noted. Suprapatellar bursal fluid kiesha ection seen. IMPRESSION: 1. Displaced proximal fibular neck fracture. However, questionable lucency involving the anterior cor maggie on the lateral view of the tibia possibly extending to the tibial plateau recommend CT scan of th e knee to assess for tibial plateau fracture.
[2022-01-14] MEDS ORDERED: KETOROLAC 15 MG/ML 1 ML VIAL IVP STA (12:59)
[2022-01-14] MEDS ORDERED: HYDROmorphone 1 MG/ML 1 ML SYRINGE IVP STA ×2 (12:59→15:22)
--- NOTE | 2022-01-14 15:27 | ED ---
Fall HPI - General Source: patient, EMS, RN notes reviewed Mode of arrival: EMS Limitations: physical limitation <Minor Clark - Last Filed: 01/14/22 15:23> <Ryland Jaramillo - Last Filed: 01/14/22 18:34> - General Chief Complaint: Fall Stated Complaint: fall, ankle injury Time Seen by Provider: 01/14/22 12:06 - History of Present Illness Initial Comments: This a 61-year-old female presents emergency Department chief complaint of right leg pain. Patient states she's climbing a shelf to get sitting down at minor wh ich she fell off. Patient has a right leg deformity per EMS patient was splinted. Patient did receive fentanyl prior arrival. She states she still in mild discomfort. No paresthesias no head injury no other complaints. (Minor Clark) - Related Data Home Medications Medication Instructions Recorded Confirmed Ergocalciferol (Vitamin D2) 50,000 unit PO WERNER 08/02/17 01/14/22 [Vitamin D2] Metoprolol Tartrate [Lopressor] 12.5 mg PO BID 08/02/17 01/14/22 Acetaminophen [Tylenol] 650 mg PO Q4H PRN 01/14/22 01/14/22 Atorvastatin [Lipitor] 40 mg PO DAILY 01/14/22 01/14/22 Gabapentin [Neurontin] 100 mg PO DAILY 01/14/22 01/14/22 Gabapentin [Neurontin] 200 mg PO HS 01/14/22 01/14/22 Magnesium 200 mg PO DAILY 01/14/22 01/14/22 Methocarbamol [Robaxin-750] 750 mg PO BID PRN 01/14/22 01/14/22 buPROPion XL [Wellbutrin XL] 150 mg PO DAILY 01/14/22 01/14/22 traZODone HCL [Desyrel] 100 mg PO HS 01/14/22 01/14/22 Previous Rx's Medication Instructions Recorded HYDROcodone/APAP 7.5-325MG [[place] 1 tab PO Q6HR PRN 3 Days #12 tab 01/14/22 7.5-325] Allergies Allergy/AdvReac Type Severity Reaction Status Date / Time ciprofloxacin [From Cipro] Allergy Swelling Verified 01/14/22 13:51 ciprofloxacin HCl Allergy Swelling Verified 01/14/22 13:51 [From Cipro] erythromycin base Allergy Vomiting Verified 01/14/22 13:51 [Erythromycin Base] morphine Allergy Vomiting Verified 01/14/22 13:51 povidone-iodine Allergy Rash/Hives Verified 01/14/22 13:51 [From Betadine] soap [From Betadine] Allergy Rash/Hives Verified 01/14/22 13:51 mushrooms Allergy Anaphylaxis Uncoded 11/05/14 16:46 Review of Systems ROS Other: All systems not noted in ROS Statement are negative. <Minor Clark - Last Filed: 01/14/22 15:23> ROS Other: All systems not noted in ROS Statement are negative. <Ryland Jaramillo - Last Filed: 01/14/22 18:34> ROS Statement: Those systems with pertinent positive or pertinent negative responses have been documented in the HPI. 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, seasonal allergies, had 1 seizure in related to hyponeutremia melena PDA repair at 1 years of age, rotator cuff repair right sided lumpectomy total colectomy and ileostomy 1990 tonsillectomy and adenoidectomy is a cell carcinoma removed History of Any Multi-Drug Resistant Organisms: None Reported Past Surgical History: Bowel Resection, Breast Surgery Additional Past Surgical History / Comment(s): colectomy secondary to chrohns resulting in ileostomy, heart surgery when 1years old, bilateral rotator cuff, epidural back injections Past Anesthesia/Blood Transfusion Reactions: No Reported Reaction Past Psychological History: No Psychological Hx Reported Smoking Status: Current every day smoker Past Alcohol Use History: None Reported Past Drug Use History: None Reported - Past Family History Mother Family Medical History: Cancer, Coronary Artery Disease (CAD), Hypertension Additional Family Medical History / Comment(s): pt has had 1 seizure related to hyponeutremia Father Family Medical History: Coronary Artery Disease (CAD) <Minor Clark - Last Filed: 01/14/22 15:23> General Exam General appearance: alert, in no apparent distress Head exam: Present: atraumatic, normocephalic, normal inspection Respiratory exam: Present: normal lung sounds bilaterally. Absent: respiratory distress, wheezes, rales, rhonchi, stridor Cardiovascular Exam: Present: regular rate, normal rhythm, normal heart sounds. Absent: systolic murmur, diastolic murmur, rubs, gallop, clicks Extremities exam: Present: other (Right leg there is swelling over the proximal tibia region, tenderness diffusely the proximal lower leg neurovascular intact) <Minor Clark - Last Filed: 01/14/22 15:23> Course Vital Signs 01/14/22 01/14/22 12:05 16:12 Temperature 98.2 F Pulse Rate 74 72 Respiratory 18 18 Rate Blood Pressure 140/88 137/81 O2 Sat by Pulse 96 96 Oximetry Medical Decision Making <Minor Clark - Last Filed: 01/14/22 15:23> - Medical Decision Making X-ray shows fibular head fracture, probable tibial plateau fracture CT was obtained pending radiology read I did discuss the case with Dr. Funes on-call for orthopedics patient remain nonweightbearing she states she cannot use crutches she'll use a walker that she has at home. She was placed in knee immobilizer. She will follow-up tomorrow with orthopedics and return parameters were discussed. (Minor Clark) Disposition Is patient prescribed a controlled substance at d/c from ED?: No Time of Disposition: 15:27 <Minor Clark - Last Filed: 01/14/22 15:23> <Ryland Jaramillo - Last Filed: 01/14/22 18:34> Clinical Impression: Fall, Fracture of right proximal fibula, Fracture of right tibial plateau Disposition: HOME SELF-CARE Condition: Stable Instructions (If sedation given, give patient instructions): Leg Fracture (ED) Additional Instructions: Please return to the Emergency Department if symptoms worsen or any other concerns. Prescriptions: HYDROcodone/APAP 7.5-325MG [[place] 7.5-325] 1 tab PO Q6HR PRN 3 Days #12 tab PRN Reason: pain Referrals: Benito Diaz MD [Primary Care Provider] - 1-2 days Lyla Funes DO [Doctor of Osteopathic Medicine] - 1-2 days
[2022-01-14 16:14] VITALS: BP 137/81; PULSE 72
--- NOTE | 2022-01-15 08:27 | CT ---
EXAMINATION TYPE: CT knee RT wo con DATE OF EXAM: 01/14/2022 COMPARISON: No previous CT scan. HISTORY: Pain, fracture CT DLP: 144.3 mGycm Automated exposure control for dose reduction was used. TECHNIQUE: Multiplanar CT scan of the right knee without IV contrast administration. 3-D reconstructi on images were generated on an independent workstation and reviewed. FINDINGS: Transverse nondisplaced to minimally displaced slightly impacted fracture of the proximal tibial meta physis extending to the proximal tibiofibular articulation. The fracture is seen extending laterally along the lateral tibial condyle and the lateral tibial articular surface with mild depression of the articular surface of the lateral tibial condyle. There is also extension of the fracture into the in tercondylar region superiorly. Anterior extension of fracture into the tibial tuberosity. Similar fracture is also seen involving th e fibular neck with suspected extension to fibular head. Scattered bone fragments are seen at the fractures. No significant angulation. Osteopenia. Small knee joint effusion. No patellar dislo cation or significant subluxation. No distal femoral fracture identified. IMPRESSION: Fractured proximal tibia and fibula as detailed above, for orthopedic consultation.
== END 2022-01-14 16:13 | disposition home or self-care (01) ==
LOC: EC 12:00
DX: S82.141A Displaced bicondylar fracture of right tibia, initial encounter for closed fracture (principal); S82.831A Other fracture of upper and lower end of right fibula, initial encounter for closed fracture; F17.200 Nicotine dependence, unspecified, uncomplicated; I10 Essential (primary) hypertension; J44.9 Chronic obstructive pulmonary disease, unspecified; K21.9 Gastro-esophageal reflux disease without esophagitis; Z79.899 Other long term (current) drug therapy; Z88.1 Allergy status to other antibiotic agents; Z88.5 Allergy status to narcotic agent; Z88.3 Allergy status to other anti-infective agents; Z91.018 Allergy to other foods; W17.89XA Other fall from one level to another, initial encounter; Y93.39 Activity, other involving climbing, rappelling and jumping off
CPT/HCPCS: 73590; 73700; 99284; 96374; 96376; 96375; J1170 ×2; J1885

== ENCOUNTER 2022-07-15 14:14 | Inpatient (IN) | payer BC ==
--- NOTE | 2022-07-15 15:06 | ED ---
SOB HPI - General Chief Complaint: Shortness of Breath Stated Complaint: ANA, CHest Pain Time Seen by Provider: 07/15/22 14:58 Source: patient, RN notes reviewed Mode of arrival: ambulatory Limitations: no limitations - History of Present Illness Initial Comments: Patient is a 61-year-old female presenting to the emergency room with complaints of shortness of breath ongoing for proximal a 1 week with increase in dyspnea this morning with pulse ox levels at home revealing a mid 80 oxygenation levels. She reports coughing congestion without significant sputum production and that her spouse was sick a couple weeks ago with similar symptoms. She was also having some substernal chest pain which began today that improved after application of oxygen and reports the symptom has now resolved. She has chronic tachycardia and is on Toprol at home for it she reports he did utilize Toprol earlier today. She denies any abdominal pain, nausea, vomiting, fevers or chills. She is a current smoker but states that due to her shortness of breath and hypoxia with chest pain she did not have any cigarettes today. She has a past medical history significant for asthma and COPD but is only on a when necessary inhaler at home; she does not use a nebulizer at home or any supplemental oxygen. In addition to her respiratory history she has a past medical history significant for hypertension, GERD and a GI bleed. - Related Data Home Medications Medication Instructions Recorded Confirmed Metoprolol Tartrate [Lopressor] 12.5 mg PO BID 08/02/17 07/15/22 Acetaminophen [Tylenol] 650 mg PO Q4H PRN 01/14/22 07/15/22 Atorvastatin [Lipitor] 40 mg PO DAILY 01/14/22 07/15/22 Gabapentin [Neurontin] 100 mg PO DAILY 01/14/22 07/15/22 Gabapentin [Neurontin] 200 mg PO HS 01/14/22 07/15/22 buPROPion XL [Wellbutrin XL] 150 mg PO DAILY 01/14/22 07/15/22 methocarbamoL [Robaxin-750] 750 mg PO Q12H PRN 01/14/22 07/15/22 traZODone HCL [Desyrel] 100 mg PO HS 01/14/22 07/15/22 HYDROcodone/APAP 5-325MG [[place] 1 tab PO Q8H 07/15/22 07/15/22 5-325] Magnesium Oxide [Magnesium] 500 mg PO DAILY 07/15/22 07/15/22 Melatonin 12mg 12 mg PO HS 07/15/22 07/15/22 Vitamin D3 50,000iu 50,000 unit PO WERNER 07/15/22 07/15/22 Allergies Allergy/AdvReac Type Severity Reaction Status Date / Time ciprofloxacin [From Cipro] Allergy Swelling Verified 07/15/22 15:53 ciprofloxacin HCl Allergy Swelling Verified 07/15/22 15:53 [From Cipro] erythromycin base Allergy Vomiting Verified 07/15/22 15:53 [Erythromycin Base] morphine Allergy Vomiting Verified 07/15/22 15:53 Mushroom Allergy Anaphylaxis Verified 07/15/22 15:53 povidone-iodine Allergy Rash/Hives Verified 07/15/22 15:53 [From Betadine] soap [From Betadine] Allergy Rash/Hives Verified 07/15/22 15:53 Review of Systems ROS Statement: Those systems with pertinent positive or pertinent negative responses have been documented in the HPI. ROS Other: All systems not noted in ROS Statement are negative. 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, seasonal allergies, had 1 seizure in related to hyponeutremia melena PDA repair at 1 years of age, rotator cuff repair right sided lumpectomy total colectomy and ileostomy 1990 tonsillectomy and adenoidectomy is a cell carcinoma removed History of Any Multi-Drug Resistant Organisms: None Reported Past Surgical History: Bowel Resection, Breast Surgery Additional Past Surgical History / Comment(s): colectomy secondary to chrohns resulting in ileostomy, heart surgery when 1years old, bilateral rotator cuff, epidural back injections Past Anesthesia/Blood Transfusion Reactions: No Reported Reaction Past Psychological History: No Psychological Hx Reported Smoking Status: Current every day smoker Past Alcohol Use History: None Reported Past Drug Use History: None Reported - Past Family History Mother Family Medical History: Cancer, Coronary Artery Disease (CAD), Hypertension Additional Family Medical History / Comment(s): pt has had 1 seizure related to hyponeutremia Father Family Medical History: Coronary Artery Disease (CAD) General Exam Limitations: no limitations General appearance: alert, in no apparent distress Head exam: Present: atraumatic, normocephalic, normal inspection Eye exam: Present: normal appearance, PERRL, EOMI. Absent: scleral icterus, conjunctival injection, periorbital swelling ENT exam: Present: normal exam, mucous membranes moist Neck exam: Present: normal inspection, full ROM Respiratory exam: Present: rhonchi (Scattered improved with cough), accessory muscle use (Occasional purse lipped breathing), decreased breath sounds (Throughout). Absent: respiratory distress, wheezes, rales, stridor Cardiovascular Exam: Present: normal rhythm, tachycardia (Mild), normal heart sounds. Absent: systolic murmur, diastolic murmur, rubs, gallop, clicks GI/Abdominal exam: Present: soft, normal bowel sounds. Absent: distended, tenderness, guarding, rebound, rigid Extremities exam: Present: normal inspection, full ROM, normal capillary refill. Absent: tenderness, pedal edema, joint swelling, calf tenderness Back exam: Present: normal inspection Neurological exam: Present: alert, oriented X3, CN II-XII intact Psychiatric exam: Present: normal affect, normal mood Skin exam: Present: warm, dry, intact, normal color. Absent: rash Course Vital Signs 07/15/22 14:43 Temperature 98.4 F Pulse Rate 117 H Respiratory 26 H Rate Blood Pressure 151/86 O2 Sat by Pulse 84 L Oximetry Medical Decision Making - Medical Decision Making 61-year-old female presenting to the emergency room with complaints of cough and congestion with hypoxemia today at home on room air along with associated substernal chest pain when she was hypoxic. Chest pain has resolved with the application of oxygen. Oxygen levels improved with 2-3 L nasal cannula. Mild tachycardia persists near baseline. Will work up for chest pain and shortness of breath with a chest x-ray, EKG, CBC, CMP, troponin, magnesium, d- dimer along with cephid swabs for COVID flu and RSV. EKG shows mild sinus tachycardia with atrial enlargement. Chest x-ray interpre adarsh by me shows left lower lobe patchy infiltrate with concern for COPD versus pulmonary fibrosis likely early pneumonia with concern for neoplasm. CBC shows elevated hemoglobin and low platelet with elevated neutrophils and normal WBCs. CMP revealed electrolyte derangement with a sodium of 117 potassium 5.6 BUN normal. D-dimer elevated at 0.74. Slightly elevated d-dimer noted however due to iodine ALLERGY unable to complete CTA. Will give dose of weight-based subcu Lovenox and order VQ scan. Will give broad-spectrum antibiotic coverage for questionable pneumonia despite no elevation in white count. Lactic acid normal. Will give IV fluid bolus and placed on D5 .45in fusion. Troponin and magnesium within normal limits. Swab negative for RSV, Covid and influenza. Patient will require admission for pneumonia and hypoxemia along with hyponatremia. Spoke with Susana marina for [facility] who is accepting of admission. She requested pulmonary consult, will consult. No further orders received from her at this time. Plan for admission and orders as above reviewed with both patient and spouse at bedside. Questions and concerns answered. Case discussed with Dr. Castano. - Lab Data Result diagrams: 07/15/22 16:01 07/15/22 16:01 Lab Results 07/15/22 07/15/22 07/15/22 Range/Units 16:01 16:01 16:01 WBC 10.5 (3.8-10.6) k/uL RBC 5.84 H (3.80-5.40) m/uL Hgb 16.4 H (11.4-16.0) gm/dL Hct 51.1 H (34.0-46.0) % MCV 87.4 (80.0-100.0) fL MCH 28.0 (25.0-35.0) pg MCHC 32.0 (31.0-37.0) g/dL RDW 15.3 (11.5-15.5) % Plt Count 128 L (150-450) k/uL MPV 10.4 Neutrophils % 77 % Lymphocytes % 14 % Monocytes % 7 % Eosinophils % 1 % Basophils % 0 % Neutrophils # 8.1 H (1.3-7.7) k/uL Lymphocytes # 1.5 (1.0-4.8) k/uL Monocytes # 0.7 (0-1.0) k/uL Eosinophils # 0.1 (0-0.7) k/uL Basophils # 0.0 (0-0.2) k/uL Hypochromasia Slight PT 9.8 (9.0-12.0) sec INR 0.9 (<1.2) APTT 27.5 (22.0-30.0) sec D-Dimer 0.74 H (<0.60) mg/L FEU Sodium 117 L* (137-145) mmol/L Potassium 5.6 H (3.5-5.1) mmol/L Chloride 84 L (98-107) mmol/L Carbon Dioxide 24 (22-30) mmol/L Anion Gap 9 mmol/L BUN 11 (7-17) mg/dL Creatinine 0.50 L (0.52-1.04) mg/dL Est GFR (CKD-EPI)AfAm >90 (>60 ml/min/1.73 sqM) Est GFR (CKD-EPI)NonAf >90 (>60 ml/min/1.73 sqM) Glucose 106 H (74-99) mg/dL Plasma Lactic Acid Abhishek (0.7-2.0) mmol/L Calcium 9.2 (8.4-10.2) mg/dL Total Bilirubin 1.0 (0.2-1.3) mg/dL AST 37 H (14-36) U/L ALT 16 (4-34) U/L Alkaline Phosphatase 132 H (38-126) U/L Troponin I (0.000-0.034) ng/mL NT-Pro-B Natriuret Pep pg/mL Total Protein 6.8 (6.3-8.2) g/dL Albumin 3.6 (3.5-5.0) g/dL Influenza Type A (PCR) (Not Detectd) Influenza Type B (PCR) (Not Detectd) RSV (PCR) (Not Detectd) SARS-CoV-2 (PCR) (Not Detectd) 07/15/22 07/15/22 07/15/22 Range/Units 16:01 16:01 16:01 WBC (3.8-10.6) k/uL RBC (3.80-5.40) m/uL Hgb (11.4-16.0) gm/dL Hct (34.0-46.0) % MCV (80.0-100.0) fL MCH (25.0-35.0) pg MCHC (31.0-37.0) g/dL RDW (11.5-15.5) % Plt Count (150-450) k/uL MPV Neutrophils % % Lymphocytes % % Monocytes % % Eosinophils % % Basophils % % Neutrophils # (1.3-7.7) k/uL Lymphocytes # (1.0-4.8) k/uL Monocytes # (0-1.0) k/uL Eosinophils # (0-0.7) k/uL Basophils # (0-0.2) k/uL Hypochromasia PT (9.0-12.0) sec INR (<1.2) APTT (22.0-30.0) sec D-Dimer (<0.60) mg/L FEU Sodium (137-145) mmol/L Potassium (3.5-5.1) mmol/L Chloride (98-107) mmol/L Carbon Dioxide (22-30) mmol/L Anion Gap mmol/L BUN (7-17) mg/dL Creatinine (0.52-1.04) mg/dL Est GFR (CKD-EPI)AfAm (>60 ml/min/1.73 sqM) Est GFR (CKD-EPI)NonAf (>60 ml/min/1.73 sqM) Glucose (74-99) mg/dL Plasma Lactic Acid Abhishek 1.0 (0.7-2.0) mmol/L Calcium (8.4-10.2) mg/dL Total Bilirubin (0.2-1.3) mg/dL AST (14-36) U/L ALT (4-34) U/L Alkaline Phosphatase (38-126) U/L Troponin I 0.015 (0.000-0.034) ng/mL NT-Pro-B Natriuret Pep 4630 pg/mL Total Protein (6.3-8.2) g/dL Albumin (3.5-5.0) g/dL Influenza Type A (PCR) (Not Detectd) Influenza Type B (PCR) (Not Detectd) RSV (PCR) (Not Detectd) SARS-CoV-2 (PCR) (Not Detectd) 07/15/22 Range/Units 16:01 WBC (3.8-10.6) k/uL RBC (3.80-5.40) m/uL Hgb (11.4-16.0) gm/dL Hct (34.0-46.0) % MCV (80.0-100.0) fL MCH (25.0-35.0) pg MCHC (31.0-37.0) g/dL RDW (11.5-15.5) % Plt Count (150-450) k/uL MPV Neutrophils % % Lymphocytes % % Monocytes % % Eosinophils % % Basophils % % Neutrophils # (1.3-7.7) k/uL Lymphocytes # (1.0-4.8) k/uL Monocytes # (0-1.0) k/uL Eosinophils # (0-0.7) k/uL Basophils # (0-0.2) k/uL Hypochromasia PT (9.0-12.0) sec INR (<1.2) APTT (22.0-30.0) sec D-Dimer (<0.60) mg/L FEU Sodium (137-145) mmol/L Potassium (3.5-5.1) mmol/L Chloride (98-107) mmol/L Carbon Dioxide (22-30) mmol/L Anion Gap mmol/L BUN (7-17) mg/dL Creatinine (0.52-1.04) mg/dL Est GFR (CKD-EPI)AfAm (>60 ml/min/1.73 sqM) Est GFR (CKD-EPI)NonAf (>60 ml/min/1.73 sqM) Glucose (74-99) mg/dL Plasma Lactic Acid Abhishek (0.7-2.0) mmol/L Calcium (8.4-10.2) mg/dL Total Bilirubin (0.2-1.3) mg/dL AST (14-36) U/L ALT (4-34) U/L Alkaline Phosphatase (38-126) U/L Troponin I (0.000-0.034) ng/mL NT-Pro-B Natriuret Pep pg/mL Total Protein (6.3-8.2) g/dL Albumin (3.5-5.0) g/dL Influenza Type A (PCR) Not Detected (Not Detectd) Influenza Type B (PCR) Not Detected (Not Detectd) RSV (PCR) Not Detected (Not Detectd) SARS-CoV-2 (PCR) Not Detected (Not Detectd) - EKG Data EKG Comments: EKG completed at 1450 Dr. by me demonstrates sinus tachycardia possible right atrial enlargement, left atrial enlargement right axis deviation and possible LVH atrial enlargement present on previous EKG. Ventricular 113 bpm, MD interval 156 ms, QRS duration 98 ms, QT/QTC 320/387 ms, PRT axes 76, 109, 55 - Radiology Data Radiology results: report reviewed, image reviewed X-ray chest 2 view impression per radiologist: COPD correlate for pulmonary fibrosis. There is vague patchy infiltrate in the left perihilar region could be on the basis of pneumonia. Follow-up resolution to exclude underlying neoplasm. Disposition Clinical Impression: Hypoxemia, Hyponatremia Disposition: ADMITTED IP TO THIS HOSP Condition: Stable Is patient prescribed a controlled substance at d/c from ED?: No Referrals: Benito Diaz MD [Primary Care Provider] - 1-2 days Time of Disposition: 18:54
--- NOTE | 2022-07-15 15:30 | XR ---
EXAMINATION TYPE: XR chest 2V DATE OF EXAM: 07/15/2022 COMPARISON: 08/02/2017 TECHNIQUE: PA and lateral views submitted. HISTORY: Shortness of breath FINDINGS: The lungs are clear and there is no pneumothorax, pleural effusion, or focal pneumonia. Fused hyper inflation. Areas of subsegmental consolidation on the left upper lobe. There is a coarsened interstit ium. Hypertrophic change of the spine with chronic appearing compression deformity upper thoracic spi ne which is progressed from prior exam. Chronic appearing clavicular deformity on the right. IMPRESSION: 1. COPD correlate for pulmonary fibrosis. There is a vague patchy infiltrate in the left perihilar re gion. Could be on the basis of pneumonia. Follow-up to resolution to exclude underlying neoplasm..
[2022-07-15 16:14] LABS: Basophils % (A) 0 %; Eosinophils # (A) 0.1 k/uL (0-0.7); Eosinophils % (A) 1 %; HCT 51.1 % (34.0-46.0); HGB 16.4 gm/dL (11.4-16.0); Hypochromasia Slight; Lymphocytes # (A) 1.5 k/uL (1.0-4.8); Lymphocytes % (A) 14 %; MCV 87.4 fL (80.0-100.0); Mean Platelet Volume 10.4; Monocytes # (A) 0.7 k/uL (0-1.0); Monocytes % (A) 7 %; Neutrophils # (A) 8.1 k/uL (1.3-7.7); Neutrophils % (A) 77 %; Platelet Count 128 k/uL (150-450); RBC 5.84 m/uL (3.80-5.40); RDW 15.3 % (11.5-15.5); WBC 10.5 k/uL (3.8-10.6)
[2022-07-15] MEDS ORDERED: ACETAMINOPHEN TAB 500 MG TAB PO STA (16:21)
[2022-07-15 16:29] LABS: ALT 16 U/L (4-34); AST 37 U/L (14-36); African American GFR (CKD) >90 (>60 ml/min/1.73 sqM); Albumin 3.6 g/dL (3.5-5.0); Alkaline Phosphatase 132 U/L (38-126); Anion Gap 9 mmol/L; Blood Urea Nitrogen 11 mg/dL (7-17); Calcium 9.2 mg/dL (8.4-10.2); Carbon Dioxide 24 mmol/L (22-30); Chloride 84 mmol/L (98-107); Glucose 106 mg/dL (74-99); Non-African American GFR(CKD) >90 (>60 ml/min/1.73 sqM); Total Protein 6.8 g/dL (6.3-8.2)
[2022-07-15 16:32] LABS: Potassium 5.6 mmol/L (3.5-5.1); Sodium 117 mmol/L (137-145)
[2022-07-15] MEDS ORDERED: SODIUM CHLORIDE 0.9% 1,000 ML IV STA (16:36)
[2022-07-15 17:08] LABS: INR 0.9 (<1.2); Partial Thromboplastin Time 27.5 sec (22.0-30.0); Prothrombin Time 9.8 sec (9.0-12.0)
[2022-07-15] MEDS ORDERED: NALOXONE 0.4 MG/ML 1 ML VIAL IV PRN (17:46)
[2022-07-15] MEDS ORDERED: ENOXAPARIN 60 MG/0.6 ML SYRINGE SQ STA (17:52)
[2022-07-15] MEDS: DEXTROSE 5%-0.45% NACL 1,000 ML IV SCH (19:48)
--- NOTE | 2022-07-15 21:17 | NM ---
EXAMINATION TYPE: NM pul perfusion DATE OF EXAM: 07/15/2022 COMPARISON: NONE HISTORY: Following administration of 5.02 mCi Tc 99m MAA. Images obtained post injection. FINDINGS: There is fairly uniform perfusion of the segments of the lungs. No evidence of segmental or subsegmen kirsten defect. IMPRESSION: Normal exam. There is low probability of pulmonary embolism.
[2022-07-15] MEDS ORDERED: MELATONIN 5 MG TABLET PO SCH (23:00)
[2022-07-15] MEDS: HYDROcodone/APAP 5-325MG 1 EACH TAB PO SCH (23:15)
[2022-07-15] MEDS: METOPROLOL TARTRATE 12.5 MG TAB PO SCH (23:15)
[2022-07-15] MEDS: ATORVASTATIN 40 MG TAB PO SCH (23:17)
[2022-07-16 06:48] LABS: Basophils # (A) 0.1 k/uL (0-0.2); Basophils % (A) 1 %; Eosinophils % (A) 0 %; HGB 15.8 gm/dL (11.4-16.0); Hypochromasia Marked; Lymphocytes # (A) 1.3 k/uL (1.0-4.8); Lymphocytes % (A) 13 %; MCHC 30.9 g/dL (31.0-37.0); MCV 90.6 fL (80.0-100.0); Mean Platelet Volume 9.7; Monocytes # (A) 0.8 k/uL (0-1.0); Monocytes % (A) 8 %; Neutrophils # (A) 7.5 k/uL (1.3-7.7); Neutrophils % (A) 75 %; Platelet Count 114 k/uL (150-450); RBC 5.63 m/uL (3.80-5.40); RDW 14.9 % (11.5-15.5)
[2022-07-16 07:35] LABS: African American GFR (CKD) >90 (>60 ml/min/1.73 sqM); Anion Gap 7 mmol/L; Blood Urea Nitrogen 9 mg/dL (7-17); Calcium 8.8 mg/dL (8.4-10.2); Carbon Dioxide 25 mmol/L (22-30); Chloride 88 mmol/L (98-107); Glucose 94 mg/dL (74-99); Non-African American GFR(CKD) >90 (>60 ml/min/1.73 sqM); Sodium 120 mmol/L (137-145)
[2022-07-16 07:38] LABS: Magnesium 1.4 mg/dL (1.6-2.3); Potassium 4.7 mmol/L (3.5-5.1)
[2022-07-16] MEDS ORDERED: Magnesium Replacement Protocol 1 EACH MISC MISCELLANE PRN ×2 (07:43→18:24)
--- NOTE | 2022-07-16 07:47 | P.HPIM ---
History of Present Illness This is a pleasant 61 years old female with multiple medical problems as below. Presents because of dyspnea that has been going on for about one week, patient is a smoker about 1 pack per day (she was counseled to quit and she agrees but she declines nicotine patch as it causes her nauseated) she is not on home oxygen and she does not follow up with batchmaker. Also since yesterday she's having neuritic-like chest pain on the left side, nonradiating about 3- 4/10 in severity that comes and goes. Increased by deep inspiration and coughing. She Makes Yellow Phlegm and She Feels Little Dizzy For More Than a Week and She Has Lost Her Appetite Because of Her Nausea Make Her Not Eating Well and Patient Looks Very Dehydrated This Morning Also the Patient Is Tachypneic Very Tired Looking and Lethargic Once I Finished My Conversation with Her She Went Right Away into Sleep However she denies abdominal pain vomiting diarrhea, no headache or weakness or numbness, no urinary symptoms. She denies alcohol or illicit tracts She denies any depression or other psychiatric illnesses She has history of ileostomy. She has history of congenital heart disease but she never had heart surgery and she does not follow up with rn ccu Patient conference to me she is ALLERGIC to penicillin Currently 94% on 4 L oxygen via nasal cannula. On admission patient was tachycardic around 111 and she was saturating 84% on room air Labs showing no leukocytosis, sodium is low 117, previously was 129-1:30. Potassium slightly elevated 5.6 in [place] lie sample Rest of BMP and liver enzymes were unremarkable. If he was at AB, RSV and c oronavirus as our and dissected Influenza A and B, coronavirus, and RSV viruses are undetected D-dimer slightly elevated at 0.74. Perfusion image shows low probability for PE MAPS was checked she is on [place] 5-10/31/1989 tablets for 30 days. Gabapentin 100 mg 90 tablets for 30 days Repeat sodium came up 120 with increase 3 points over the last 14 hours but patient looks very dehydrated therefore going to start her on. We will repeat sodium after 4 hours Review of Systems Review of systems CONSTITUTIONAL: No fever, no malaise, no fatigue. HEENT: No recent visual problems or hearing problems. Denied any sore throat. CARDIOVASCULAR: No orthopnea, PND, no palpitations, no syncope. PULMONARY: No shortness of breath, no cough, no hemoptysis. GASTROINTESTINAL: No diarrhea, no nausea, no vomiting, no abdominal pain. Normoactive bowel sounds. NEUROLOGICAL: No headaches, no weakness, no numbness. HEMATOLOGICAL: Denies any bleeding or petechiae. GENITOURINARY: Denies any burning micturition, frequency, or urgency. MUSCULOSKELETAL/RHEUMATOLOGICAL: Denies any joint pain, swelling, or any muscle pain. ENDOCRINE: Denies any polyuria or polydipsia. 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, seasonal allergies, had 1 seizure in related to hyponeutremia melena PDA repair at 1 years of age, rotator cuff repair right sided lumpectomy total colectomy and ileostomy 1990 tonsillectomy and adenoidectomy is a cell carcinoma removed History of Any Multi-Drug Resistant Organisms: None Reported Past Surgical History: Bowel Resection, Breast Surgery Additional Past Surgical History / Comment(s): colectomy secondary to chrohns resulting in ileostomy, heart surgery when 1years old, bilateral rotator cuff, epidural back injections Past Anesthesia/Blood Transfusion Reactions: No Reported Reaction Past Psychological History: No Psychological Hx Reported Smoking Status: Current every day smoker Past Alcohol Use History: None Reported Past Drug Use History: None Reported - Past Family History Mother Family Medical History: Cancer, Coronary Artery Disease (CAD), Hypertension Additional Family Medical History / Comment(s): pt has had 1 seizure related to hyponeutremia Father Family Medical History: Coronary Artery Disease (CAD) Medications and Allergies Home Medications Medication Instructions Recorded Confirmed Type Metoprolol Tartrate [Lopressor] 12.5 mg PO BID 08/02/17 07/15/22 History Acetaminophen [Tylenol] 650 mg PO Q4H PRN 01/14/22 07/15/22 History Atorvastatin [Lipitor] 40 mg PO DAILY 01/14/22 07/15/22 History Gabapentin [Neurontin] 100 mg PO DAILY 01/14/22 07/15/22 History Gabapentin [Neurontin] 200 mg PO HS 01/14/22 07/15/22 History buPROPion XL [Wellbutrin XL] 150 mg PO DAILY 01/14/22 07/15/22 History methocarbamoL [Robaxin-750] 750 mg PO Q12H PRN 01/14/22 07/15/22 History traZODone HCL [Desyrel] 100 mg PO HS 01/14/22 07/15/22 History HYDROcodone/APAP 5-325MG [[place] 1 tab PO Q8H 07/15/22 07/15/22 History 5-325] Magnesium Oxide [Magnesium] 500 mg PO DAILY 07/15/22 07/15/22 History Melatonin 12mg 12 mg PO HS 07/15/22 07/15/22 History Vitamin D3 50,000iu 50,000 unit PO WERNER 07/15/22 07/15/22 History Allergies Allergy/AdvReac Type Severity Reaction Status Date / Time ciprofloxacin [From Cipro] Allergy Swelling Verified 07/15/22 15:53 ciprofloxacin HCl Allergy Swelling Verified 07/15/22 15:53 [From Cipro] erythromycin base Allergy Vomiting Verified 07/15/22 15:53 [Erythromycin Base] morphine Allergy Vomiting Verified 07/15/22 15:53 Mushroom Allergy Anaphylaxis Verified 07/15/22 15:53 povidone-iodine Allergy Rash/Hives Verified 07/15/22 15:53 [From Betadine] soap [From Betadine] Allergy Rash/Hives Verified 07/15/22 15:53 Physical Exam Vitals: Vital Signs Temp Pulse Pulse Resp BP BP Pulse Ox 07/16/22 05:39 97 20 125/77 94 L 07/16/22 03:51 98.1 F 93 20 144/82 94 L 07/16/22 02:00 18 07/16/22 00:23 97.8 F 96 18 128/83 95 07/15/22 22:31 98.1 F 112 H 16 140/85 95 07/15/22 19:54 113 H 18 152/97 95 07/15/22 18:41 111 H 18 95 07/15/22 14:43 98.4 F 117 H 26 H 151/86 84 L Intake and Output 07/15/22 07/15/22 07/16/22 14:59 22:59 06:59 Intake Total 118 Balance 118 Intake: Oral 118 Other: # Voids 1 Weight 47.174 kg -GENERAL: The patient is alert and oriented x3,Drowsy, not in any acute distress. Well developed, well nourished. HEENT: Pupils are round and equally reacting to light. EOMI. No scleral icterus. No conjunctival pallor. Normocephalic, atraumatic. No pharyngeal erythema. No thyromegaly. CARDIOVASCULAR: S1 and S2 present. No murmurs, rubs, or gallops. -PULMONARY: Chest is clear to auscultation, no wheezing or crackles. The Neck ABDOMEN: Soft, nontender, nondistended, normoactive bowel sounds. No palpable organomegaly. MUSCULOSKELETAL: No joint swelling or deformity. EXTREMITIES: No cyanosis, clubbing, or pedal edema. NEUROLOGICAL: Gross neurological examination did not reveal any focal deficits. SKIN: No rashes. no petechiae. Results CBC & Chem 7: 07/16/22 06:17 07/16/22 06:17 Labs: Abnormal Lab Results - Last 24 Hours (Table) 07/15/22 07/15/22 07/15/22 Range/Units 16:01 16:01 16:01 RBC 5.84 H (3.80-5.40) m/uL Hgb 16.4 H (11.4-16.0) gm/dL Hct 51.1 H (34.0-46.0) % Plt Count 128 L (150-450) k/uL Neutrophils # 8.1 H (1.3-7.7) k/uL D-Dimer 0.74 H (<0.60) mg/L FEU Sodium 117 L* (137-145) mmol/L Potassium 5.6 H (3.5-5.1) mmol/L Chloride 84 L (98-107) mmol/L Creatinine 0.50 L (0.52-1.04) mg/dL Glucose 106 H (74-99) mg/dL AST 37 H (14-36) U/L Alkaline Phosphatase 132 H (38-126) U/L Assessment and Plan Assessment: Acute COPD exacerbation Left perihilar pneumonia is suspected Chest pain most likely secondary to above acute hypoxic respiratory failure Nicotine dependence History of GERD History of GI bleed Hypertension History of Crohn's disease, Status post total colectomy and ileostomy History of congenital heart disease as a child Plan: Continue with steroids Continue with oxygen as needed Start with antibiotic , Augmentin. Send sputum culture Continue with bronchodilator Pulmonary Consult Check venous Doppler of the legs check procalcitonin Monitor sodium closely Check serum osmolality and urine was mostly on sodium, check TSH and hemoglobin A1c. Consult nephrology team Start gentle hydration with sodium close monitoring Labs and medication were reviewed.. Continue same treatment. Continue with symptomatic treatment. Resume home medication. Monitor labs and vitals. DVT and GI prophylaxis. Further recommendations as per clinical course of the patient DVT prophylaxis: Subcutaneous heparin GI Prophylaxis: Pepcid PT/OT: Pending Prognosis is guarded
[2022-07-16] MEDS: HYDROcodone/APAP 5-325MG 1 EACH TAB PO SCH ×4 (08:10→23:09)
[2022-07-16] MEDS: METOPROLOL TARTRATE 12.5 MG TAB PO SCH ×2 (08:10→20:45)
[2022-07-16] MEDS: ACETAMINOPHEN TAB 325 MG TAB PO PRN ×2 (08:10→20:44)
[2022-07-16] MEDS: GABAPENTIN 100 MG CAP PO SCH ×2 (08:12→20:44)
[2022-07-16] MEDS: ATORVASTATIN 40 MG TAB PO SCH (08:12)
[2022-07-16] MEDS: HEPARIN SODIUM,PORCINE/PF 5,000 UNIT/0.5 ML SYRINGE SQ SCH ×2 (08:12→20:45)
[2022-07-16] MEDS: buPROPion XL 150 MG TAB.ER.24H PO SCH (08:12)
[2022-07-16] MEDS: FAMOTIDINE 20 MG/2 ML VIAL IV SCH ×2 (08:13→20:45)
[2022-07-16] MEDS: NICOTINE 21MG/24HR PATCH TRANSDERM SCH (08:13)
[2022-07-16] MEDS ORDERED: IPRATROPIUM-ALBUTEROL 3 ML NEB INHALATION PRN (08:15)
[2022-07-16] MEDS: SODIUM CHLORIDE 0.9% 1,000 ML IV SCH (08:17)
[2022-07-16] MEDS: AMOXIC-POT CLAV 875-125MG 1 EACH TAB PO SCH ×2 (08:17→20:44)
--- NOTE | 2022-07-16 09:13 | US ---
EXAMINATION TYPE: US venous doppler duplex LE BI DATE OF EXAM: 07/16/2022 8:34 AM COMPARISON: NONE CLINICAL HISTORY: Bilateral lower extremity edema. SIDE PERFORMED: Bilateral TECHNIQUE: The lower extremity deep venous system is examined utilizing real time linear array sonog dina with graded compression, doppler sonography and color-flow sonography. VESSELS IMAGED: Common Femoral Vein Deep Femoral Vein Greater Saphenous Vein * Femoral Vein Popliteal Vein Small Saphenous Vein * Proximal Calf Veins (* superficial vessels) Right Leg: Negative for DVT Left Leg: Negative for DVT IMPRESSION: No evidence for DVT at this time.
[2022-07-16 11:00] LABS: Potassium 5.2 mmol/L (3.5-5.1)
--- NOTE | 2022-07-16 11:27 | P.CNPUL ---
History of Present Illness Consult date: 07/16/22 Requesting physician: Lianet Escobar Reason for consult: dyspnea, COPD, hypoxemia Chief complaint: Shortness of breath. History of present illness: Pulmonary consult dated 07/26/2022. 61-year-old female who presents to the emergency department, with complaints of shortness of breath. She was seen in the emergency department on July 15. Shortness of breath or been present for about a week or so. Saturations on pulse oximetry were in the 80s. She also admits to coughing, and chest conges tion, without significant phlegm production. She also complained of some substernal chest pain. There is no nausea, vomiting, diarrhea, or abdominal pain. No fever or chills. She is a heavy smoker and continues to smoke cigarettes, up until the time she came into the hospital. She has a history of COPD, GERD, GI bleed, hypertension, pneumonia, Crohn's disease, seizure disorder, PDA repair, at 1 years of age, and prior bowel resection. White count 10, hemoglobin 15.8, hematocrit 51, platelet count 214,000. D-dimer was 0.74. Sodium 120, potassium 5.2, chloride 88, CO2 29. Admission sodium was 117. BUN and creatinine were 9 and 0.47. Pro-calcitonin level is 0.11. Testing for influenza A and B were both negative. Also testing for RSV, and coronavirus were negative. Chest x-ray shows changes of COPD, and a possible vague patchy infiltrate in the left perihilar region. Perfusion lung scan was normal to low probability for PE. Dopplers of the bilateral lower extremities were negative. Review of Systems REVIEW OF SYSTEMS: CONSTITUTIONAL: Weakness NEUROLOGIC: [ Negative.] HEENT: [ Negative.] CARDIAC: Chest pain. PULMONARY: Shortness of breath, chest congestion, and cough. GI: [Negative.] : [Negative.] RHEUMATOLOGIC: [ Negative.] IMMUNOLOGIC: [ Negative.] ENDOCRINE: [Negative. 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, seasonal allergies, had 1 seizure in related to hyponeutremia melena PDA repair at 1 years of age, rotator cuff repair right sided lumpectomy total colectomy and ileostomy 1990 tonsillectomy and adenoidectomy is a cell carcinoma removed History of Any Multi-Drug Resistant Organisms: None Reported Past Surgical History: Bowel Resection, Breast Surgery Additional Past Surgical History / Comment(s): colectomy secondary to chrohns resulting in ileostomy, heart surgery when 1years old, bilateral rotator cuff, epidural back injections Past Anesthesia/Blood Transfusion Reactions: No Reported Reaction Past Psychological History: No Psychological Hx Reported Smoking Status: Current every day smoker Past Alcohol Use History: None Reported Past Drug Use History: None Reported - Past Family History Mother Family Medical History: Cancer, Coronary Artery Disease (CAD), Hypertension Additional Family Medical History / Comment(s): pt has had 1 seizure related to hyponeutremia Father Family Medical History: Coronary Artery Disease (CAD) Medications and Allergies Home Medications Medication Instructions Recorded Confirmed Type Metoprolol Tartrate [Lopressor] 12.5 mg PO BID 08/02/17 07/15/22 History Acetaminophen [Tylenol] 650 mg PO Q4H PRN 01/14/22 07/15/22 History Atorvastatin [Lipitor] 40 mg PO DAILY 01/14/22 07/15/22 History Gabapentin [Neurontin] 100 mg PO DAILY 01/14/22 07/15/22 History Gabapentin [Neurontin] 200 mg PO HS 01/14/22 07/15/22 History buPROPion XL [Wellbutrin XL] 150 mg PO DAILY 01/14/22 07/15/22 History methocarbamoL [Robaxin-750] 750 mg PO Q12H PRN 01/14/22 07/15/22 History traZODone HCL [Desyrel] 100 mg PO HS 01/14/22 07/15/22 History HYDROcodone/APAP 5-325MG [[place] 1 tab PO Q8H 07/15/22 07/15/22 History 5-325] Magnesium Oxide [Magnesium] 500 mg PO DAILY 07/15/22 07/15/22 History Melatonin 12mg 12 mg PO HS 07/15/22 07/15/22 History Vitamin D3 50,000iu 50,000 unit PO WERNER 07/15/22 07/15/22 History Allergies Allergy/AdvReac Type Severity Reaction Status Date / Time ciprofloxacin [From Cipro] Allergy Swelling Verified 07/15/22 15:53 ciprofloxacin HCl Allergy Swelling Verified 07/15/22 15:53 [From Cipro] erythromycin base Allergy Vomiting Verified 07/15/22 15:53 [Erythromycin Base] morphine Allergy Vomiting Verified 07/15/22 15:53 Mushroom Allergy Anaphylaxis Verified 07/15/22 15:53 povidone-iodine Allergy Rash/Hives Verified 07/15/22 15:53 [From Betadine] soap [From Betadine] Allergy Rash/Hives Verified 07/15/22 15:53 Physical Exam Osteopathic Statement: *. No significant issues noted on an osteopathic structural exam other than those noted in the History and Physical/Consult. Vitals: Vital Signs Temp Pulse Pulse Resp BP BP Pulse Ox 07/16/22 05:39 97 20 125/77 94 L 07/16/22 03:51 98.1 F 93 20 144/82 94 L 07/16/22 02:00 18 07/16/22 00:23 97.8 F 96 18 128/83 95 07/15/22 22:31 98.1 F 112 H 16 140/85 95 07/15/22 19:54 113 H 18 152/97 95 07/15/22 18:41 111 H 18 95 07/15/22 14:43 98.4 F 117 H 26 H 151/86 84 L Intake and Output 07/15/22 07/16/22 07/16/22 22:59 06:59 14:59 Intake Total 118 Balance 118 Intake: Oral 118 Other: # Voids 1 No acute distress, oriented 3. 4 L saturation is 94%. HEENT examination is grossly unremarkable. Neck supple. Full range of motion. No adenopathy thyromegaly or neck vein distention. Cardiovascular examination reveals regular rhythm rate. S1-S2 normal. No S3 or S4. No discernible murmur noted. Heart sounds are distant. Heart rate 93 bpm. Lungs reveal scattered bilateral rhonchi and expiratory wheezes. No crackles. Breath sounds equal bilaterally but diminished throughout. Abdomen soft bowel sounds are heard. No masses or tenderness. Extremities are intact. No cyanosis clubbing or edema. Skin is without rash or lesion. Neurologic examination is brief but nonfocal. Results - Laboratory Findings CBC and BMP: 07/16/22 06:17 07/16/22 10:16 PT/INR, D-dimer PT 9.8 sec (9.0-12.0) 07/15/22 16:01 INR 0.9 (<1.2) 07/15/22 16:01 D-Dimer 0.74 mg/L FEU (<0.60) H 07/15/22 16:01 Abnormal lab findings: Abnormal Labs 07/15/22 07/15/22 07/15/22 16:01 16:01 16:01 RBC 5.84 H Hgb 16.4 H Hct 51.1 H MCHC Plt Count 128 L Neutrophils # 8.1 H D-Dimer 0.74 H Sodium 117 L* Potassium 5.6 H Chloride 84 L Creatinine 0.50 L Glucose 106 H Osmolality Magnesium AST 37 H Alkaline Phosphatase 132 H Procalcitonin 07/16/22 07/16/22 07/16/22 06:17 06:17 06:17 RBC 5.63 H Hgb Hct 51.0 H MCHC 30.9 L Plt Count 114 L Neutrophils # D-Dimer Sodium 120 L Potassium Chloride 88 L Creatinine 0.47 L Glucose Osmolality 254 L Magnesium 1.4 L AST Alkaline Phosphatase Procalcitonin 0.11 H 07/16/22 10:16 RBC Hgb Hct MCHC Plt Count Neutrophils # D-Dimer Sodium 120 L Potassium 5.2 H Chloride 88 L Creatinine Glucose Osmolality Magnesium AST Alkaline Phosphatase Procalcitonin - Diagnostic Findings Chest x-ray: image reviewed Assessment and Plan Assessment: Acute hypoxemic respiratory failure, on the basis of COPD exacerbation. History of heavy tobacco use, up to the time of admission. Hyponatremia. Possible pneumonia, left lung. History of hypertension. History of GI bleed. Prior history of pneumonia. PDA repair, at age of 1. Crohn's disease, status post colectomy and ileostomy. Multiple other medical problems and comorbidities. Plan: Plan dated 07/16/2022. From the pulmonary standpoint, the patient is on Augmentin, Symbicort, and updrafts with albuterol sulfate and ipratropium bromide. In addition, we added Solu-Medrol, 40 mg every 6 hours. Also had a nicotine patch. Prognosis is guarded. We will continue to follow make recommendations along the way. We encourage patient to stop smoking. She should have follow-up in our office post discharge. Time with Patient: Greater than 30
--- NOTE | 2022-07-16 11:47 | P.NPCON ---
History of Present Illness - Reason for Consult hyponatremia - History of Present Illness Reason for consultation: Hyponatremia History of present illness: Patient is a 61-year-old female seen in consultation for hyponatremia. Patient's sodium level on admission yesterday at 4 PM was 117. She received 1 L bolus of normal saline. Currently she is not on any IV fluids. Sodium level is 120 today. Patient came to the hospital due to shortness of breath and generalized weakness. Patient states she hasn't eaten much the last few days but does admit to drinking quite a bit of fluids. States she drinks at least 5- 6 bottles of water, 2-3 cups of coffee and also diet pop daily. She also likes to drink milk according to the . Patient does try trazodone at home. She denies use of any diuretics. Denies history of any malignancy. TSH noted to be normal. Denies history of kidney disease. GFR is at baseline. VQ scan showed low probability of PE. No evidence of DVT. She tested negative for influenza as well as coronavirus. Patient is not a very reliable historian at this time. is present at bedside. Vital signs are stable. General: Awake. No acute distress. HEENT: Head exam is unremarkable. LUNGS: Breath sounds decreased. HEART: Rate and Rhythm are regular. ABDOMEN: Soft, no distention. EXTREMITITES: No edema. 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, seasonal allergies, had 1 seizure in related to hyponeutremia melena PDA repair at 1 years of age, rotator cuff repair right sided lumpectomy total colectomy and ileostomy 1990 tonsillectomy and adenoidectomy is a cell carcinoma removed History of Any Multi-Drug Resistant Organisms: None Reported Past Surgical History: Bowel Resection, Breast Surgery Additional Past Surgical History / Comment(s): colectomy secondary to chrohns resulting in ileostomy, heart surgery when 1years old, bilateral rotator cuff, epidural back injections Past Anesthesia/Blood Transfusion Reactions: No Reported Reaction Past Psychological History: No Psychological Hx Reported Smoking Status: Current every day smoker Past Alcohol Use History: None Reported Past Drug Use History: None Reported - Past Family History Mother Family Medical History: Cancer, Coronary Artery Disease (CAD), Hypertension Additional Family Medical History / Comment(s): pt has had 1 seizure related to hyponeutremia Father Family Medical History: Coronary Artery Disease (CAD) Medications and Allergies Home Medications Medication Instructions Recorded Confirmed Type Metoprolol Tartrate [Lopressor] 12.5 mg PO BID 08/02/17 07/15/22 History Acetaminophen [Tylenol] 650 mg PO Q4H PRN 01/14/22 07/15/22 History Atorvastatin [Lipitor] 40 mg PO DAILY 01/14/22 07/15/22 History Gabapentin [Neurontin] 100 mg PO DAILY 01/14/22 07/15/22 History Gabapentin [Neurontin] 200 mg PO HS 01/14/22 07/15/22 History buPROPion XL [Wellbutrin XL] 150 mg PO DAILY 01/14/22 07/15/22 History methocarbamoL [Robaxin-750] 750 mg PO Q12H PRN 01/14/22 07/15/22 History traZODone HCL [Desyrel] 100 mg PO HS 01/14/22 07/15/22 History HYDROcodone/APAP 5-325MG [[place] 1 tab PO Q8H 07/15/22 07/15/22 History 5-325] Magnesium Oxide [Magnesium] 500 mg PO DAILY 07/15/22 07/15/22 History Melatonin 12mg 12 mg PO HS 07/15/22 07/15/22 History Vitamin D3 50,000iu 50,000 unit PO WERNER 07/15/22 07/15/22 History Allergies Allergy/AdvReac Type Severity Reaction Status Date / Time ciprofloxacin [From Cipro] Allergy Swelling Verified 07/15/22 15:53 ciprofloxacin HCl Allergy Swelling Verified 07/15/22 15:53 [From Cipro] erythromycin base Allergy Vomiting Verified 07/15/22 15:53 [Erythromycin Base] morphine Allergy Vomiting Verified 07/15/22 15:53 Mushroom Allergy Anaphylaxis Verified 07/15/22 15:53 povidone-iodine Allergy Rash/Hives Verified 07/15/22 15:53 [From Betadine] soap [From Betadine] Allergy Rash/Hives Verified 07/15/22 15:53 Physical Exam Vitals: Vital Signs Temp Pulse Pulse Resp BP BP Pulse Ox 07/16/22 05:39 97 20 125/77 94 L 07/16/22 03:51 98.1 F 93 20 144/82 94 L 07/16/22 02:00 18 07/16/22 00:23 97.8 F 96 18 128/83 95 07/15/22 22:31 98.1 F 112 H 16 140/85 95 07/15/22 19:54 113 H 18 152/97 95 07/15/22 18:41 111 H 18 95 07/15/22 14:43 98.4 F 117 H 26 H 151/86 84 L Intake and Output 07/15/22 07/16/22 07/16/22 22:59 06:59 14:59 Intake Total 118 Balance 118 Intake: Oral 118 Other: # Voids 1 Results - Lab Results Most recent lab results Calcium 8.8 mg/dL (8.4-10.2) 07/16/22 06:17 Magnesium 1.4 mg/dL (1.6-2.3) L 07/16/22 06:17 07/16/22 06:17 07/16/22 10:16 Assessment and Plan Plan: Assessment: 1. Hypovolemic hyponatremia with component of poor solute intake. Sodium level was 117 on admission yesterday and is 120 today. 2. COPD exacerbation. 3. Possible pneumonia. 4. History of Crohn's disease. 5. Hypomagnesemia from poor intake. Plan: Start normal saline at 50 mL an hour. 1500 mL fluid restriction. Replace magnesium. Check serum and urine osmolality and urine sodium level. Repeat sodium level this afternoon. Replace magnesium. Thank you for the consultation. I will continue to follow the patient with you during her hospital stay.
[2022-07-16] MEDS: methylPREDNISolone SOD SUCCI 40 MG/ML 1 ML VIAL IV SCH ×3 (11:52→23:10)
[2022-07-16] MEDS: IPRATROPIUM-ALBUTEROL 3 ML NEB INHALATION SCH ×3 (12:29→20:19)
[2022-07-16] MEDS: MAGNESIUM SULFATE-D5W PMX 1 GM in DEXTROSE/WATER 1 100ML.BAG IVPB SCH ×2 (13:46→15:50)
[2022-07-16] MEDS: DEXTROSE 5%-0.45% NACL 1,000 ML IV SCH (18:28)
[2022-07-16 20:02] LABS: Glucose,Whole Blood 124 mg/dL (70-110)
[2022-07-16] MEDS: SYMBICORT 160-4.5 MCG INHALER INHALATION SCH (20:19)
[2022-07-16] MEDS ORDERED: MELATONIN 5 MG TABLET PO SCH (21:00)
[2022-07-16] MEDS: MELATONIN 3 MG TABLET PO PRN (23:10)
[2022-07-17] MEDS: SODIUM CHLORIDE 0.9% 1,000 ML IV SCH ×2 (02:55→18:19)
[2022-07-17] MEDS: ACETAMINOPHEN TAB 325 MG TAB PO PRN ×3 (04:44→18:16)
[2022-07-17 06:16] LABS: Glucose,Whole Blood 125 mg/dL (70-110)
[2022-07-17] MEDS: methylPREDNISolone SOD SUCCI 40 MG/ML 1 ML VIAL IV SCH ×4 (06:21→22:46)
[2022-07-17] MEDS: HYDROcodone/APAP 5-325MG 1 EACH TAB PO SCH ×3 (06:21→22:46)
[2022-07-17] MEDS: SYMBICORT 160-4.5 MCG INHALER INHALATION SCH ×2 (08:28→20:41)
[2022-07-17] MEDS: IPRATROPIUM-ALBUTEROL 3 ML NEB INHALATION SCH ×4 (08:28→20:41)
[2022-07-17 09:25] LABS: African American GFR (CKD) >90 (>60 ml/min/1.73 sqM); Anion Gap 5 mmol/L; Blood Urea Nitrogen 10 mg/dL (7-17); Calcium 8.3 mg/dL (8.4-10.2); Carbon Dioxide 28 mmol/L (22-30); Chloride 87 mmol/L (98-107); Glucose 189 mg/dL (74-99); Magnesium 1.7 mg/dL (1.6-2.3); Non-African American GFR(CKD) >90 (>60 ml/min/1.73 sqM); Potassium 4.7 mmol/L (3.5-5.1); Sodium 120 mmol/L (137-145)
[2022-07-17] MEDS: ATORVASTATIN 40 MG TAB PO SCH (09:45)
[2022-07-17] MEDS: GABAPENTIN 100 MG CAP PO SCH ×2 (09:45→20:01)
[2022-07-17] MEDS: HEPARIN SODIUM,PORCINE/PF 5,000 UNIT/0.5 ML SYRINGE SQ SCH ×2 (09:45→20:01)
[2022-07-17] MEDS: METOPROLOL TARTRATE 12.5 MG TAB PO SCH ×2 (09:45→20:01)
[2022-07-17] MEDS: AMOXIC-POT CLAV 875-125MG 1 EACH TAB PO SCH ×2 (09:45→20:01)
[2022-07-17] MEDS: NICOTINE 21MG/24HR PATCH TRANSDERM SCH (09:45)
[2022-07-17] MEDS: FAMOTIDINE 20 MG/2 ML VIAL IV SCH ×2 (10:30→20:01)
[2022-07-17] MEDS: DEXTROSE 5%-0.45% NACL 1,000 ML IV SCH (10:30)
[2022-07-17] MEDS: buPROPion XL 150 MG TAB.ER.24H PO SCH (10:39)
--- NOTE | 2022-07-17 11:12 | P.PN ---
Subjective Patient is seen in follow-up for hyponatremia. Sodium level initially improved with IV fluids up to 122 last night and was down to 120 again this morning. She complains of nausea. No other complaints. Vital signs are stable. General: Awake. No acute distress. HEENT: Head exam is unremarkable. LUNGS: Breath sounds decreased. HEART: Rate and Rhythm are regular. ABDOMEN: Soft, no distention. EXTREMITITES: No edema. Objective - Vital Signs Vital signs: Vital Signs Temp 97.8 F 07/17/22 07:36 Pulse 99 07/17/22 07:36 Resp 19 07/17/22 07:36 BP 134/80 07/17/22 07:36 Pulse Ox 96 07/17/22 08:29 FiO2 Intake & Output 07/16/22 07/17/22 07/17/22 18:59 06:59 18:59 Intake Total 50 Output Total 600 Balance -550 Intake: IV 50 Sodium Chloride 0.9% 1, 50 000 ml @ 50 mls/hr IV . Q20H [facility] Rx#:[id number] Output: Urine 600 Other: Voiding Method Toilet Toilet Toilet # Voids 1 3 - Labs CBC & Chem 7: 07/16/22 06:17 07/17/22 08:23 Labs: Abnormal Lab Results - Last 24 Hours (Table) 07/16/22 07/16/22 07/16/22 Range/Units 06:17 17:26 19:59 Sodium 122 L (137-145) mmol/L Chloride (98-107) mmol/L Creatinine (0.52-1.04) mg/dL Glucose (74-99) mg/dL POC Glucose (mg/dL) 124 H (70-110) mg/dL Hemoglobin A1c 6.3 H (0.0-6.0) % Calcium (8.4-10.2) mg/dL Ur Random Sodium (40-220) mmol/L 07/16/22 07/17/22 07/17/22 Range/Units 21:00 06:14 08:23 Sodium 120 L (137-145) mmol/L Chloride 87 L (98-107) mmol/L Creatinine 0.49 L (0.52-1.04) mg/dL Glucose 189 H (74-99) mg/dL POC Glucose (mg/dL) 125 H (70-110) mg/dL Hemoglobin A1c (0.0-6.0) % Calcium 8.3 L (8.4-10.2) mg/dL Ur Random Sodium <20 L (40-220) mmol/L Microbiology - Last 24 Hours (Table) 07/15/22 15:50 Blood Culture - Preliminary Blood No Growth after 24 hours 07/15/22 15:35 Blood Culture - Preliminary Blood No Growth after 24 hours Assessment and Plan Plan: Assessment: 1. Hypovolemic hyponatremia with component of poor solute intake as well as SIADH from nausea. Sodium level improved to 122 as of last night. Sodium level 120 this morning. Urine sodium less than 20 and urine osmolality 290. 2. COPD exacerbation. 3. Possible pneumonia. 4. History of Crohn's disease. 5. Hypomagnesemia from poor intake. Replaced. Better. Plan: Increase rate of normal saline to 75 mL an hour. 1500 mL fluid restriction. Patient states she is unable to tolerate sodium chloride tabs. Encouraged protein intake. Repeat sodium level this evening. If no improvement in sodium level, will consider [place].
[2022-07-17] MEDS: ONDANSETRON 4 MG/2 ML VIAL IVP PRN ×2 (14:04→22:46)
[2022-07-17 14:28] VITALS: BMI 23.3
--- NOTE | 2022-07-17 14:45 | P.PN ---
Subjective Progress Note Date: 07/17/22 Principal diagnosis: Renal failure. Pulmonary consult dated 07/26/2022. 61-year-old female who presents to the emergency department, with complaints of shortness of breath. She was seen in the emergency department on July 15. Shortness of breath or been present for about a week or so. Saturations on pulse oximetry were in the 80s. She also admits to coughing, and chest congestion, without significant phlegm production. She also complained of some substernal chest pain. There is no nausea, vomiting, diarrhea, or abdominal pain. No fever or chills. She is a heavy smoker and continues to smoke cigarettes, up until the time she came into the hospital. She has a history of COPD, GERD, GI bleed, hypertension, pneumonia, Crohn's disease, seizure disorder, PDA repair, at 1 years of age, and prior bowel resection. White count 10, hemoglobin 15.8, hematocrit 51, platelet count 214,000. D-dimer was 0.74. Sodium 120, potassium 5.2, chloride 88, CO2 29. Admission sodium was 117. BUN and creatinine were 9 and 0.47. Pro-calcitonin level is 0.11. Testing for influenza A and B were both negative. Also testing for RSV, and coronavirus were negative. Chest x-ray shows changes of COPD, and a possible vague patchy infiltrate in the left perihilar region. Perfusion lung scan was normal to low probability for PE. Dopplers of the bilateral lower extremities were negative. Progress note dated 07/17/2022. 61-year-old female seen yesterday in consultation. She was initially seen in the emergency department. She came in with shortness of breath. Currently, the patient's on 4 L of oxygen. She's getting saline at 75 mL an hour. He feels better today than she did yesterday. She has a history of COPD, GERD, GI bleed, hypertension, pneumonia, Crohn's disease, seizure disorder, PDA repair, and bowel resection. Current laboratory data includes a sodium 120, potassium 4.7, chloride 87, CO2 28, BUN 10, creatinine 0.49. Glucose 125. Objective - Vital Signs Vital signs: Vital Signs Temp 97.8 F 07/17/22 07:36 Pulse 88 07/17/22 11:37 Resp 20 07/17/22 11:37 BP 116/84 07/17/22 11:37 Pulse Ox 98 07/17/22 11:37 FiO2 Intake & Output 07/16/22 07/17/22 07/17/22 18:59 06:59 18:59 Intake Total 50 900 Output Total 600 Balance -550 900 Weight 47.174 kg Intake: IV 50 900 Sodium Chloride 0.9% 1, 50 900 000 ml @ 75 mls/hr IV . [id number] [facility] Rx#:[id number] Output: Urine 600 Other: Voiding Method Toilet Toilet Toilet # Voids 1 3 2 # Bowel Movements 2 - Exam No acute distress, oriented 3. 4 L saturation is 96%. HEENT examination is grossly unremarkable. Neck supple. Full range of motion. No adenopathy thyromegaly or neck vein distention. Cardiovascular examination reveals regular rhythm rate. S1-S2 normal. No S3 or S4. No discernible murmur noted. Heart sounds are distant. Heart rate 88 bpm. Lungs reveal scattered bilateral rhonchi and expiratory wheezes. No crackles. Breath sounds equal bilaterally but diminished throughout. Abdomen soft bowel sounds are heard. No masses or tenderness. Extremities are intact. No cyanosis clubbing or edema. Skin is without rash or lesion. Neurologic examination is brief but nonfocal. - Labs CBC & Chem 7: 07/16/22 06:17 07/17/22 08:23 Labs: Abnormal Lab Results - Last 24 Hours (Table) 07/16/22 07/16/22 07/16/22 Range/Units 06:17 17:26 19:59 Sodium 122 L (137-145) mmol/L Chloride (98-107) mmol/L Creatinine (0.52-1.04) mg/dL Glucose (74-99) mg/dL POC Glucose (mg/dL) 124 H (70-110) mg/dL Hemoglobin A1c 6.3 H (0.0-6.0) % Calcium (8.4-10.2) mg/dL Ur Random Sodium (40-220) mmol/L 07/16/22 07/17/22 07/17/22 Range/Units 21:00 06:14 08:23 Sodium 120 L (137-145) mmol/L Chloride 87 L (98-107) mmol/L Creatinine 0.49 L (0.52-1.04) mg/dL Glucose 189 H (74-99) mg/dL POC Glucose (mg/dL) 125 H (70-110) mg/dL Hemoglobin A1c (0.0-6.0) % Calcium 8.3 L (8.4-10.2) mg/dL Ur Random Sodium <20 L (40-220) mmol/L Microbiology - Last 24 Hours (Table) 07/15/22 15:50 Blood Culture - Preliminary Blood No Growth after 24 hours 07/15/22 15:35 Blood Culture - Preliminary Blood No Growth after 24 hours Assessment and Plan Assessment: Acute hypoxemic respiratory failure, on the basis of COPD exacerbation. History of heavy tobacco use, up to the time of admission. Hyponatremia. Possible pneumonia, left lung. History of hypertension. History of GI bleed. Prior history of pneumonia. PDA repair, at age of 1. Crohn's disease, status post colectomy and ileostomy. Multiple other medical problems and comorbidities. Plan: Plan dated 07/16/2022. From the pulmonary standpoint, the patient is on Augmentin, Symbicort, and updrafts with albuterol sulfate and ipratropium bromide. In addition, we added Solu-Medrol, 40 mg every 6 hours. Also had a nicotine patch. Prognosis is guarded. We will continue to follow make recommendations along the way. We encourage patient to stop smoking. She should have follow-up in our office post discharge. Plan dated 07/17/2022. The patient is seen in room 364. From the pulmonary standpoint, the patient's on Augmentin, Symbicort, albuterol sulfate, ipratropium bromide, and Solu- Medrol, 40 mg every 6 hours. She's also on a nicotine patch. We will continue to follow make recommendations along the way. Prognosis is guarded. Labs, x- rays, and medications are reviewed. The patient is counseled about the importance of smoking cessation. Time with Patient: Less than 30
--- NOTE | 2022-07-17 19:32 | P.PN ---
Subjective Progress Note Date: 07/17/22 61 years old female with multiple medical problems as below. 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 Also since yesterday she's having neuritic-like chest pain on the left side, nonradiating about 3- 4/10 in severity that comes and goes. Increased by deep inspiration and coughing. She Makes Yellow Phlegm and She Feels Little Dizzy For More Than a Week and She Has Lost Her Appetite Because of Her Nausea Make Her Not Eating Well and Patient Looks Very Dehydrated This Morning Also the Patient Is Tachypneic Very Tired Looking and Lethargic Once I Finished My Conversation with Her She Went Right Away into Sleep On admission patient was tachycardic around 111 and she was saturating 84% on room air Labs showing no leukocytosis, sodium is low 117, previously was 129-1:30. Potassium slightly elevated 5.6 in [place] lie sample Rest of BMP and liver enzymes were unremarkable. If he was at AB, RSV and coronavirus as our and dissected Influenza A and B, coronavirus, and RSV viruses are undetected D-dimer slightly elevated at 0.74. Perfusion image shows low probability for PE Objective - Vital Signs Vital signs: Vital Signs Temp 97.8 F 07/17/22 07:36 Pulse 88 07/17/22 11:37 Resp 20 07/17/22 11:37 BP 116/84 07/17/22 11:37 Pulse Ox 98 07/17/22 11:37 FiO2 Intake & Output 07/16/22 07/17/22 07/17/22 18:59 06:59 18:59 Intake Total 50 900 Output Total 600 Balance -550 900 Intake: IV 50 900 Sodium Chloride 0.9% 1, 50 900 000 ml @ 75 mls/hr IV . [id number] [facility] Rx#:[id number] Output: Urine 600 Other: Voiding Method Toilet Toilet Toilet # Voids 1 3 2 # Bowel Movements 2 - Exam -GENERAL: The patient is alert and oriented x3,Drowsy, not in any acute distress. Well developed, well nourished. HEENT: Pupils are round and equally reacting to light. EOMI. No scleral icterus. No conjunctival pallor. Normocephalic, atraumatic. No pharyngeal erythema. No thyromegaly. CARDIOVASCULAR: S1 and S2 present. No murmurs, rubs, or gallops. -PULMONARY: Chest is clear to auscultation, no wheezing or crackles. The Neck ABDOMEN: Soft, nontender, nondistended, normoactive bowel sounds. No palpable organomegaly. MUSCULOSKELETAL: No joint swelling or deformity. EXTREMITIES: No cyanosis, clubbing, or pedal edema. NEUROLOGICAL: Gross neurological examination did not reveal any focal deficits. SKIN: No rashes. no petechiae. - Labs CBC & Chem 7: 07/16/22 06:17 07/17/22 15:33 Labs: Abnormal Lab Results - Last 24 Hours (Table) 07/16/22 07/16/22 07/16/22 Range/Units 06:17 17:26 19:59 Sodium 122 L (137-145) mmol/L Chloride (98-107) mmol/L Creatinine (0.52-1.04) mg/dL Glucose (74-99) mg/dL POC Glucose (mg/dL) 124 H (70-110) mg/dL Hemoglobin A1c 6.3 H (0.0-6.0) % Calcium (8.4-10.2) mg/dL Ur Random Sodium (40-220) mmol/L 07/16/22 07/17/22 07/17/22 Range/Units 21:00 06:14 08:23 Sodium 120 L (137-145) mmol/L Chloride 87 L (98-107) mmol/L Creatinine 0.49 L (0.52-1.04) mg/dL Glucose 189 H (74-99) mg/dL POC Glucose (mg/dL) 125 H (70-110) mg/dL Hemoglobin A1c (0.0-6.0) % Calcium 8.3 L (8.4-10.2) mg/dL Ur Random Sodium <20 L (40-220) mmol/L Microbiology - Last 24 Hours (Table) 07/15/22 15:50 Blood Culture - Preliminary Blood No Growth after 24 hours 07/15/22 15:35 Blood Culture - Preliminary Blood No Growth after 24 hours Assessment and Plan Assessment: Acute COPD exacerbation Left perihilar pneumonia is suspected Chest pain most likely secondary to above acute hypoxic respiratory failure Nicotine dependence History of GERD History of GI bleed Hypertension History of Crohn's disease, Status post total colectomy and ileostomy History of congenital heart disease as a child Continue with steroids Continue with oxygen as needed Start with antibiotic , Augmentin. Send sputum culture Continue with bronchodilator Pulmonary Consult Check venous Doppler of the legs check procalcitonin Monitor sodium closely Check serum osmolality and urine was mostly on sodium, check TSH and hemoglobin A1c. Consult nephrology team Start gentle hydration with sodium close monitoring Labs and medication were reviewed.. Continue same treatment. Continue with symptomatic treatment. Resume home medication. Monitor labs and vitals. DVT and GI prophylaxis. Further recommendations as per clinical course of the patient DVT prophylaxis: Subcutaneous heparin GI Prophylaxis: Pepcid PT/OT: Pending Prognosis is guarded
[2022-07-17] MEDS: MELATONIN 3 MG TABLET PO PRN (22:46)
[2022-07-17] MEDS: traZODone HCL 100 MG TAB PO SCH (22:46)
[2022-07-17] MEDS ORDERED: FUROSEMIDE 10 MG/ML 2 ML VIAL IV ONE (22:54)
[2022-07-18] MEDS: ACETAMINOPHEN TAB 325 MG TAB PO PRN ×3 (04:51→19:39)
[2022-07-18] MEDS: SODIUM CHLORIDE 0.9% 1,000 ML IV SCH (04:54)
[2022-07-18] MEDS: methocarbamoL 750 MG TAB PO PRN (05:07)
[2022-07-18] MEDS: methylPREDNISolone SOD SUCCI 40 MG/ML 1 ML VIAL IV SCH ×4 (06:55→22:56)
[2022-07-18] MEDS: HYDROcodone/APAP 5-325MG 1 EACH TAB PO SCH ×3 (06:55→22:56)
[2022-07-18] MEDS: IPRATROPIUM-ALBUTEROL 3 ML NEB INHALATION SCH ×4 (08:02→20:44)
[2022-07-18] MEDS: SYMBICORT 160-4.5 MCG INHALER INHALATION SCH ×2 (08:02→20:44)
[2022-07-18] MEDS: GABAPENTIN 100 MG CAP PO SCH ×2 (08:57→19:40)
[2022-07-18] MEDS: AMOXIC-POT CLAV 875-125MG 1 EACH TAB PO SCH ×2 (08:57→19:40)
[2022-07-18] MEDS: METOPROLOL TARTRATE 12.5 MG TAB PO SCH ×2 (08:57→19:40)
[2022-07-18] MEDS: ATORVASTATIN 40 MG TAB PO SCH (08:57)
[2022-07-18] MEDS: NICOTINE 21MG/24HR PATCH TRANSDERM SCH (08:58)
[2022-07-18] MEDS: buPROPion XL 150 MG TAB.ER.24H PO SCH (08:58)
[2022-07-18] MEDS: HEPARIN SODIUM,PORCINE/PF 5,000 UNIT/0.5 ML SYRINGE SQ SCH ×2 (08:58→19:41)
[2022-07-18] MEDS: FAMOTIDINE 20 MG TAB PO SCH ×2 (09:00→19:40)
[2022-07-18 10:10] LABS: African American GFR (CKD) >90 (>60 ml/min/1.73 sqM); Anion Gap 4 mmol/L; Blood Urea Nitrogen 11 mg/dL (7-17); Calcium 8.3 mg/dL (8.4-10.2); Carbon Dioxide 29 mmol/L (22-30); Chloride 93 mmol/L (98-107); Glucose 130 mg/dL (74-99); Magnesium 1.6 mg/dL (1.6-2.3); Non-African American GFR(CKD) >90 (>60 ml/min/1.73 sqM); Potassium 3.8 mmol/L (3.5-5.1); Sodium 126 mmol/L (137-145)
--- NOTE | 2022-07-18 10:41 | P.PN ---
Subjective Patient is seen in follow-up for hyponatremia. Sodium level improved. Received 1 dose of IV Lasix last night. Still receiving normal saline. Oral intake is fair. Vital signs are stable. General: Awake. No acute distress. HEENT: Head exam is unremarkable. LUNGS: Breath sounds decreased. HEART: Rate and Rhythm are regular. ABDOMEN: Soft, no distention. EXTREMITITES: No edema. Objective - Vital Signs Vital signs: Vital Signs Temp 97.9 F 07/18/22 03:55 Pulse 88 07/18/22 08:14 Resp 15 07/18/22 03:55 BP 100/55 07/18/22 03:55 Pulse Ox 91 L 07/18/22 03:55 FiO2 Intake & Output 07/17/22 07/18/22 07/18/22 18:59 06:59 18:59 Intake Total 900 540 Output Total 675 2300 Balance 225 540 -2300 Weight 47.174 kg Intake: IV 900 Sodium Chloride 0.9% 1, 900 000 ml @ 75 mls/hr IV . [id number] [facility] Rx#:[id number] Oral 540 Output: Urine 675 2300 Other: Voiding Method Toilet Toilet Toilet # Voids 2 3 # Bowel Movements 2 - Labs CBC & Chem 7: 07/16/22 06:17 07/18/22 08:57 Labs: Abnormal Lab Results - Last 24 Hours (Table) 07/17/22 07/18/22 Range/Units 15:33 08:57 Sodium 120 L 126 L (137-145) mmol/L Chloride 93 L (98-107) mmol/L Creatinine 0.49 L (0.52-1.04) mg/dL Glucose 130 H (74-99) mg/dL Calcium 8.3 L (8.4-10.2) mg/dL Microbiology - Last 24 Hours (Table) 07/15/22 15:50 Blood Culture - Preliminary Blood No Growth after 48 hours 07/15/22 15:35 Blood Culture - Preliminary Blood No Growth after 48 hours Assessment and Plan Plan: Assessment: 1. Hypovolemic hyponatremia with component of poor solute intake as well as SIADH from nausea. Sodium level improved to 126. Urine sodium less than 20 and urine osmolality 290. TSH normal. 2. COPD exacerbation. 3. Possible pneumonia. 4. History of Crohn's disease. 5. Hypomagnesemia from poor intake. Replaced. Plan: Hep-Lock IV fluids. Maintain 1500 mL fluid restriction. Patient states she is unable to tolerate sodium chloride tabs. Encouraged protein intake. Add oral magnesium oxide. Repeat labs in the morning.
[2022-07-18] MEDS: ONDANSETRON 4 MG/2 ML VIAL IVP PRN (11:13)
[2022-07-18] MEDS: MAGNESIUM OXIDE 400 MG TAB PO SCH ×2 (11:18→19:40)
--- NOTE | 2022-07-18 12:49 | P.PN ---
Subjective Progress Note Date: 07/18/22 Principal diagnosis: Renal failure. Pulmonary consult dated 07/26/2022. 61-year-old female who presents to the emergency department, with complaints of shortness of breath. She was seen in the emergency department on July 15. Shortness of breath or been present for about a week or so. Saturations on pulse oximetry were in the 80s. She also admits to coughing, and chest congestion, without significant phlegm production. She also complained of some substernal chest pain. There is no nausea, vomiting, diarrhea, or abdominal pain. No fever or chills. She is a heavy smoker and continues to smoke cigarettes, up until the time she came into the hospital. She has a history of COPD, GERD, GI bleed, hypertension, pneumonia, Crohn's disease, seizure disorder, PDA repair, at 1 years of age, and prior bowel resection. White count 10, hemoglobin 15.8, hematocrit 51, platelet count 214,000. D-dimer was 0.74. Sodium 120, potassium 5.2, chloride 88, CO2 29. Admission sodium was 117. BUN and creatinine were 9 and 0.47. Pro-calcitonin level is 0.11. Testing for influenza A and B were both negative. Also testing for RSV, and coronavirus were negative. Chest x-ray shows changes of COPD, and a possible vague patchy infiltrate in the left perihilar region. Perfusion lung scan was normal to low probability for PE. Dopplers of the bilateral lower extremities were negative. Progress note dated 07/17/2022. 61-year-old female seen yesterday in consultation. She was initially seen in the emergency department. She came in with shortness of breath. Currently, the patient's on 4 L of oxygen. She's getting saline at 75 mL an hour. He feels better today than she did yesterday. She has a history of COPD, GERD, GI bleed, hypertension, pneumonia, Crohn's disease, seizure disorder, PDA repair, and bowel resection. Current laboratory data includes a sodium 120, potassium 4.7, chloride 87, CO2 28, BUN 10, creatinine 0.49. Glucose 125. Progress note dated 07/18/2022. 61-year-old female who was seen in consultation back on July 16. Please see the note above. Currently, the patient's on room air. She is a bit nauseated. No IV fluids. She presented to the emergency department initially with shortness of breath with saturations in the 80s. The patient was initially hyponatremic, and today's sodium is up to 126. Potassium 3.8, chlorides 93, CO2 29, BUN 11, creatinine 0.49. Objective - Vital Signs Vital signs: Vital Signs Temp 98.1 F 07/18/22 11:59 Pulse 98 07/18/22 11:59 Resp 18 07/18/22 11:59 BP 112/56 07/18/22 11:59 Pulse Ox 91 L 07/18/22 11:59 FiO2 Intake & Output 07/17/22 07/18/22 07/18/22 18:59 06:59 18:59 Intake Total 900 540 Output Total 675 2300 Balance 225 540 -2300 Weight 47.174 kg Intake: IV 900 Sodium Chloride 0.9% 1, 900 000 ml @ 75 mls/hr IV . [id number] [facility] Rx#:[id number] Oral 540 Output: Urine 675 2300 Other: Voiding Method Toilet Toilet Toilet # Voids 2 3 # Bowel Movements 2 - Exam No acute distress, oriented 3. Room air saturation is 91-92%. HEENT examination is grossly unremarkable. Neck supple. Full range of motion. No adenopathy thyromegaly or neck vein di stention. Cardiovascular examination reveals regular rhythm rate. S1-S2 normal. No S3 or S4. No discernible murmur noted. Heart sounds are distant. Heart rate is 92 bpm. Lungs reveal scattered bilateral rhonchi and expiratory wheezes. No crackles. Breath sounds equal bilaterally but diminished throughout. Abdomen soft bowel sounds are heard. No masses or tenderness. Extremities are intact. No cyanosis clubbing or edema. Skin is without rash or lesion. Neurologic examination is brief but nonfocal. - Labs CBC & Chem 7: 07/16/22 06:17 07/18/22 08:57 Labs: Abnormal Lab Results - Last 24 Hours (Table) 07/17/22 07/18/22 Range/Units 15:33 08:57 Sodium 120 L 126 L (137-145) mmol/L Chloride 93 L (98-107) mmol/L Creatinine 0.49 L (0.52-1.04) mg/dL Glucose 130 H (74-99) mg/dL Calcium 8.3 L (8.4-10.2) mg/dL Microbiology - Last 24 Hours (Table) 07/15/22 15:50 Blood Culture - Preliminary Blood No Growth after 48 hours 07/15/22 15:35 Blood Culture - Preliminary Blood No Growth after 48 hours Assessment and Plan Assessment: Acute hypoxemic respiratory failure, secondary to COPD exacerbation. History of heavy tobacco use, up to the time of admission. Hyponatremia. Possible pneumonia, left lung. History of hypertension. History of GI bleed. Prior history of pneumonia. PDA repair, at age of 1. Crohn's disease, status post colectomy and ileostomy. Multiple other medical problems and comorbidities. Plan: Plan dated 07/16/2022. From the pulmonary standpoint, the patient is on Augmentin, Symbicort, and updrafts with albuterol sulfate and ipratropium bromide. In addition, we added Solu-Medrol, 40 mg every 6 hours. Also had a nicotine patch. Prognosis is guarded. We will continue to follow make recommendations along the way. We encourage patient to stop smoking. She should have follow-up in our office post discharge. Plan dated 07/17/2022. The patient is seen in room 364. From the pulmonary standpoint, the patient's o n Augmentin, Symbicort, albuterol sulfate, ipratropium bromide, and Solu-Medrol, 40 mg every 6 hours. She's also on a nicotine patch. We will continue to follow make recommendations along the way. Prognosis is guarded. Labs, x-rays, and medications are reviewed. The patient is counseled about the importance of smoking cessation. Plan dated 07/18/2022. The patient is seen today in room 364. She has removed her oxygen. Saturations on room air are 91%. Clinically, she feels okay. She is a bit nauseated. Sodium is up to 126. We will continue to follow make recommendations along the way. She continues on Symbicort, albuterol sulfate and ipratropium bromide, and Solu-Medrol 40 mg every 6 hours. She has a nicotine patch on. Additional recommendations and suggestions are forthcoming. Time with Patient: Less than 30
[2022-07-18] MEDS: MELATONIN 3 MG TABLET PO PRN (19:40)
[2022-07-18] MEDS: traZODone HCL 100 MG TAB PO SCH (19:40)
[2022-07-19 04:33] LABS: African American GFR (CKD) >90 (>60 ml/min/1.73 sqM); Anion Gap 0 mmol/L; Blood Urea Nitrogen 14 mg/dL (7-17); Calcium 8.6 mg/dL (8.4-10.2); Carbon Dioxide 32 mmol/L (22-30); Chloride 94 mmol/L (98-107); Glucose 139 mg/dL (74-99); Magnesium 1.9 mg/dL (1.6-2.3); Non-African American GFR(CKD) >90 (>60 ml/min/1.73 sqM); Potassium 4.1 mmol/L (3.5-5.1); Sodium 126 mmol/L (137-145)
[2022-07-19] MEDS: ACETAMINOPHEN TAB 325 MG TAB PO PRN ×2 (05:01→19:55)
[2022-07-19] MEDS: HYDROcodone/APAP 5-325MG 1 EACH TAB PO SCH ×3 (06:22→23:14)
[2022-07-19] MEDS: methylPREDNISolone SOD SUCCI 40 MG/ML 1 ML VIAL IV SCH ×4 (06:23→23:16)
[2022-07-19] MEDS: buPROPion XL 150 MG TAB.ER.24H PO SCH (07:08)
[2022-07-19] MEDS: NICOTINE 21MG/24HR PATCH TRANSDERM SCH (07:11)
[2022-07-19] MEDS: GABAPENTIN 100 MG CAP PO SCH ×2 (07:11→23:14)
[2022-07-19] MEDS: AMOXIC-POT CLAV 875-125MG 1 EACH TAB PO SCH ×2 (07:11→19:55)
[2022-07-19] MEDS: MAGNESIUM OXIDE 400 MG TAB PO SCH ×2 (07:11→19:56)
[2022-07-19] MEDS: HEPARIN SODIUM,PORCINE/PF 5,000 UNIT/0.5 ML SYRINGE SQ SCH ×2 (07:11→22:53)
[2022-07-19] MEDS: ATORVASTATIN 40 MG TAB PO SCH (07:11)
[2022-07-19] MEDS: METOPROLOL TARTRATE 12.5 MG TAB PO SCH ×2 (07:11→19:55)
[2022-07-19] MEDS: FAMOTIDINE 20 MG TAB PO SCH ×2 (07:11→19:56)
[2022-07-19] MEDS: methocarbamoL 750 MG TAB PO PRN ×2 (07:38→18:03)
[2022-07-19] MEDS: IPRATROPIUM-ALBUTEROL 3 ML NEB INHALATION SCH ×4 (08:49→20:40)
[2022-07-19] MEDS: SYMBICORT 160-4.5 MCG INHALER INHALATION SCH ×2 (08:49→20:40)
--- NOTE | 2022-07-19 10:28 | P.PN ---
Subjective Patient is seen in follow-up for hyponatremia. Sodium level stable at 126 today. Off IV fluids. Oral intake is fair. Blood pressure stable. No vomiting or diarrhea. Vital signs are stable. General: Awake. No acute distress. HEENT: Head exam is unremarkable. LUNGS: Breath sounds decreased. HEART: Rate and Rhythm are regular. ABDOMEN: Soft, no distention. EXTREMITITES: No edema. Objective - Vital Signs Vital signs: Vital Signs Temp 97.9 F 07/19/22 07:40 Pulse 75 07/19/22 07:40 Resp 18 07/19/22 07:40 BP 134/77 07/19/22 07:40 Pulse Ox 95 07/19/22 07:40 FiO2 Intake & Output 07/18/22 07/19/22 07/19/22 18:59 06:59 18:59 Intake Total 540 5 Output Total 3100 Balance -3100 540 5 Intake: IV 5 Invasive Line 1 5 Oral 540 Output: Urine 3100 Other: Voiding Method Toilet Toilet Toilet # Voids 3 2 - Labs CBC & Chem 7: 07/16/22 06:17 07/19/22 03:49 Labs: Abnormal Lab Results - Last 24 Hours (Table) 07/19/22 Range/Units 03:49 Sodium 126 L (137-145) mmol/L Chloride 94 L (98-107) mmol/L Carbon Dioxide 32 H (22-30) mmol/L Glucose 139 H (74-99) mg/dL Microbiology - Last 24 Hours (Table) 07/15/22 15:35 Blood Culture - Preliminary Blood No Growth after 72 hours 07/15/22 15:50 Blood Culture - Preliminary Blood No Growth after 72 hours Assessment and Plan Plan: Assessment: 1. Hypovolemic hyponatremia with component of poor solute intake as well as SIADH from nausea. Sodium level stable at 126. Urine sodium less than 20 and urine osmolality 290. TSH normal. 2. COPD exacerbation. 3. Possible pneumonia on abx. 4. History of Crohn's disease. 5. Hypomagnesemia from poor intake. On oral magnesium oxide. Better. Plan: Maintain 1500 mL fluid restriction. Patient states she is unable to tolerate sodium chloride tabs. Encouraged protein intake. Samsca 7.5 mg once today. Repeat labs in the morning.
[2022-07-19] MEDS ORDERED: TOLVAPTAN 15 MG 1/2 TABLET PO ONE (11:00)
--- NOTE | 2022-07-19 11:44 | P.PN ---
Subjective Progress Note Date: 07/19/22 Principal diagnosis: Renal failure. Pulmonary consult dated 07/26/2022. 61-year-old female who presents to the emergency department, with complaints of shortness of breath. She was seen in the emergency department on July 15. Shortness of breath or been present for about a week or so. Saturations on pulse oximetry were in the 80s. She also admits to coughing, and chest congestion, without significant phlegm production. She also complained of some substernal chest pain. There is no nausea, vomiting, diarrhea, or abdominal pain. No fever or chills. She is a heavy smoker and continues to smoke cigarettes, up until the time she came into the hospital. She has a history of COPD, GERD, GI bleed, hypertension, pneumonia, Crohn's disease, seizure disorder, PDA repair, at 1 years of age, and prior bowel resection. White count 10, hemoglobin 15.8, hematocrit 51, platelet count 214,000. D-dimer was 0.74. Sodium 120, potassium 5.2, chloride 88, CO2 29. Admission sodium was 117. BUN and creatinine were 9 and 0.47. Pro-calcitonin level is 0.11. Testing for influenza A and B were both negative. Also testing for RSV, and coronavirus were negative. Chest x-ray shows changes of COPD, and a possible vague patchy infiltrate in the left perihilar region. Perfusion lung scan was normal to low probability for PE. Dopplers of the bilateral lower extremities were negative. Progress note dated 07/17/2022. 61-year-old female seen yesterday in consultation. She was initially seen in the emergency department. She came in with shortness of breath. Currently, the patient's on 4 L of oxygen. She's getting saline at 75 mL an hour. He feels better today than she did yesterday. She has a history of COPD, GERD, GI bleed, hypertension, pneumonia, Crohn's disease, seizure disorder, PDA repair, and bowel resection. Current laboratory data includes a sodium 120, potassium 4.7, chloride 87, CO2 28, BUN 10, creatinine 0.49. Glucose 125. Progress note dated 07/18/2022. 61-year-old female who was seen in consultation back on July 16. Please see the note above. Currently, the patient's on room air. She is a bit nauseated. No IV fluids. She presented to the emergency department initially with shortness of breath with saturations in the 80s. The patient was initially hyponatremic, and today's sodium is up to 126. Potassium 3.8, chlorides 93, CO2 29, BUN 11, creatinine 0.49. Progress note dated 07/19/2022. 61-year-old female again seen in room 364. Currently, the patient's on 2 L of oxygen. Saturations are 95%. Her sodium is up to 126. Clinically, she feels reasonably well. She is short of breath on exertion. She is not receiving any IV fluids. Today's labs include a sodium 126, potassium 4.1, chlorides 94, CO2 32, BUN 14, and creatinine 0.57. Glucose 139. Objective - Vital Signs Vital signs: Vital Signs Temp 97.9 F 07/19/22 07:40 Pulse 92 07/19/22 11:36 Resp 18 07/19/22 07:40 BP 134/77 07/19/22 07:40 Pulse Ox 95 07/19/22 07:40 FiO2 Intake & Output 07/18/22 07/19/22 07/19/22 18:59 06:59 18:59 Intake Total 540 5 Output Total 3100 550 Balance -3100 540 -545 Intake: IV 5 Invasive Line 1 5 Oral 540 Output: Urine 3100 550 Other: Voiding Method Toilet Toilet Toilet # Voids 3 2 - Exam No acute distress, oriented 3. 2 L saturation is 95%. HEENT examination is grossly unremarkable. Neck supple. Full range of motion. No adenopathy thyromegaly or neck vein distention. Cardiovascular examination reveals regular rhythm rate. S1-S2 normal. No S3 or S4. No discernible murmur noted. Heart sounds are distant. Heart rate is 93 bpm. Lungs reveal scattered bilateral rhonchi and expiratory wheezes. No crackles. Breath sounds equal bilaterally but diminished throughout. Abdomen soft bowel sounds are heard. No masses or tenderness. Extremities are intact. No cyanosis clubbing or edema. Skin is without rash or lesion. Neurologic examination is brief but nonfocal. - Labs CBC & Chem 7: 07/16/22 06:17 07/19/22 03:49 Labs: Abnormal Lab Results - Last 24 Hours (Table) 07/19/22 Range/Units 03:49 Sodium 126 L (137-145) mmol/L Chloride 94 L (98-107) mmol/L Carbon Dioxide 32 H (22-30) mmol/L Glucose 139 H (74-99) mg/dL Microbiology - Last 24 Hours (Table) 07/15/22 15:35 Blood Culture - Preliminary Blood No Growth after 72 hours 07/15/22 15:50 Blood Culture - Preliminary Blood No Growth after 72 hours Assessment and Plan Assessment: Acute hypoxemic respiratory failure, secondary to COPD exacerbation. History of heavy tobacco use, up to the time of admission. Hyponatremia, improved. Possible pneumonia, left lung. History of hypertension. History of GI bleed. Prior history of pneumonia. PDA repair, at age of 1. Crohn's disease, status post colectomy and ileostomy. Multiple other medical problems and comorbidities. Plan: Plan dated 07/16/2022. From the pulmonary standpoint, the patient is on Augmentin, Symbicort, and updrafts with albuterol sulfate and ipratropium bromide. In addition, we added Solu-Medrol, 40 mg every 6 hours. Also had a nicotine patch. Prognosis is guarded. We will continue to follow make recommendations along the way. We encourage patient to stop smoking. She should have follow-up in our office post discharge. Plan dated 07/17/2022. The patient is seen in room 364. From the pulmonary standpoint, the patient's on Augmentin, Symbicort, albuterol sulfate, ipratropium bromide, and Solu- Medrol, 40 mg every 6 hours. She's also on a nicotine patch. We will continue to follow make recommendations along the way. Prognosis is guarded. Labs, x- rays, and medications are reviewed. The patient is counseled about the importance of smoking cessation. Plan dated 07/18/2022. The patient is seen today in room 364. She has removed her oxygen. Saturations on room air are 91%. Clinically, she feels okay. She is a bit nauseated. Sodium is up to 126. We will continue to follow make recommendations along the way. She continues on Symbicort, albuterol sulfate and ipratropium bromide, and Solu-Medrol 40 mg every 6 hours. She has a nicotine patch on. Additional recommendations and suggestions are forthcoming. Plan dated 07/19/2022. From the pulmonary standpoint, the patient appears stable. Saturations are improved. Clinically she is improved and less short of breath. Sodium is up to 126. We will continue to follow make recommendations along the way. Prognosis is guarded. Hopeful discharge within the next 24-48 hours. Time with Patient: Less than 30
--- NOTE | 2022-07-19 12:38 | P.PN ---
Subjective Progress Note Date: 07/18/22 Principal diagnosis: Fall/left hip fracture Acute renal injury/hypokalemia Severe dehydration Mild vaginal bleeding 61 years old female with multiple medical problems as below. 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 Also since yesterday she's having neuritic-like chest pain on the left side, nonradiating about 3- 4/10 in severity that comes and goes. Increased by deep inspiration and coughing. She Makes Yellow Phlegm and She Feels Little Dizzy For More Than a Week and She Has Lost Her Appetite Because of Her Nausea Make Her Not Eating Well and Patient Looks Very Dehydrated This Morning Also the Patient Is Tachypneic Very Tired Looking and Lethargic Once I Finished My Conversation with Her She Went Right Away into Sleep On admission patient was tachycardic around 111 and she was saturating 84% on room air Labs showing no leukocytosis, sodium is low 117, previously was 129-1:30. Potassium slightly elevated 5.6 in [place] lie sample Rest of BMP and liver enzymes were unremarkable. If he was at AB, RSV and coronavirus as our and dissected Influenza A and B, coronavirus, and RSV viruses are undetected D-dimer slightly elevated at 0.74. Perfusion image shows low probability for PE 07/18/2022 Patient is seen and evaluated in room at bedside; continues to need 4 L of O2 per nasal cannula; no fever, nausea vomiting Vitals are stable with a temperature of 97.5, pulse 73, respiration 18 and blood pressure 135/72 patient with a fever in this patient presented to the hospital after a fall with left femoral fracture s/p operative repair patient did have a positive UA concerning for a UTI with last urine culture done did grew out drug-resistant Klebsiella patient did have elevated CRP and procalcitonin. the patient urine did grow drug-resistant Klebsiella sensitive to cefepime and is also growing Ann glabrata the patient white count count did came down with the addition of Diflucan yesterday hence we will continue Diflucan and cefepime and watch her white count closely as well as clinical response Objective - Vital Signs Vital signs: Vital Signs Temp 97.9 F 07/18/22 03:55 Pulse 92 07/18/22 11:29 Resp 15 07/18/22 03:55 BP 100/55 07/18/22 03:55 Pulse Ox 91 L 07/18/22 03:55 FiO2 Intake & Output 07/17/22 07/18/22 07/18/22 18:59 06:59 18:59 Intake Total 900 540 Output Total 675 2300 Balance 225 540 -2300 Weight 47.174 kg Intake: IV 900 Sodium Chloride 0.9% 1, 900 000 ml @ 75 mls/hr IV . [id number] [facility] Rx#:[id number] Oral 540 Output: Urine 675 2300 Other: Voiding Method Toilet Toilet Toilet # Voids 2 3 # Bowel Movements 2 - Exam -GENERAL: The patient is alert and oriented x3,Drowsy, not in any acute distress. Well developed, well nourished. HEENT: Pupils are round and equally reacting to light. EOMI. No scleral icterus. No conjunctival pallor. Normocephalic, atraumatic. No pharyngeal erythema. No thyromegaly. CARDIOVASCULAR: S1 and S2 present. No murmurs, rubs, or gallops. -PULMONARY: Chest is clear to auscultation, no wheezing or crackles. The Neck ABDOMEN: Soft, nontender, nondistended, normoactive bowel sounds. No palpable organomegaly. MUSCULOSKELETAL: No joint swelling or deformity. EXTREMITIES: No cyanosis, clubbing, or pedal edema. NEUROLOGICAL: Gross neurological examination did not reveal any focal deficits. SKIN: No rashes. no petechiae. - Labs CBC & Chem 7: 07/16/22 06:17 07/19/22 03:49 Labs: Abnormal Lab Results - Last 24 Hours (Table) 07/17/22 07/18/22 Range/Units 15:33 08:57 Sodium 120 L 126 L (137-145) mmol/L Chloride 93 L (98-107) mmol/L Creatinine 0.49 L (0.52-1.04) mg/dL Glucose 130 H (74-99) mg/dL Calcium 8.3 L (8.4-10.2) mg/dL Microbiology - Last 24 Hours (Table) 07/15/22 15:50 Blood Culture - Preliminary Blood No Growth after 48 hours 07/15/22 15:35 Blood Culture - Preliminary Blood No Growth after 48 hours Assessment and Plan Assessment: Acute COPD exacerbation Left perihilar pneumonia is suspected Chest pain most likely secondary to above acute hypoxic respiratory failure Nicotine dependence History of GERD History of GI bleed Hypertension History of Crohn's disease, Status post total colectomy and ileostomy History of congenital heart disease as a child Continue with steroids Continue with oxygen as needed Start with antibiotic , Augmentin. Send sputum culture Continue with bronchodilator Pulmonary Consult Check venous Doppler of the legs check procalcitonin Monitor sodium closely Check serum osmolality and urine was mostly on sodium, check TSH and hemoglobin A1c. Consult nephrology team Start gentle hydration with sodium close monitoring Labs and medication were reviewed.. Continue same treatment. Continue with symptomatic treatment. Resume home medication. Monitor labs and vitals. DVT and GI prophylaxis. Further recommendations as per clinical course of the patient DVT prophylaxis: Subcutaneous heparin GI Prophylaxis: Pepcid PT/OT: Pending Prognosis is guarded
[2022-07-19] MEDS: ONDANSETRON 4 MG/2 ML VIAL IVP PRN (14:35)
--- NOTE | 2022-07-19 18:03 | P.PN ---
Subjective Progress Note Date: 07/19/22 Principal diagnosis: Fall/left hip fracture Acute renal injury/hypokalemia Severe dehydration Mild vaginal bleeding 61 years old female with multiple medical problems as below. 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 Also since yesterday she's having neuritic-like chest pain on the left side, nonradiating about 3- 4/10 in severity that comes and goes. Increased by deep inspiration and coughing. She Makes Yellow Phlegm and She Feels Little Dizzy For More Than a Week and She Has Lost Her Appetite Because of Her Nausea Make Her Not Eating Well and Patient Looks Very Dehydrated This Morning Also the Patient Is Tachypneic Very Tired Looking and Lethargic Once I Finished My Conversation with Her She Went Right Away into Sleep On admission patient was tachycardic around 111 and she was saturating 84% on room air Labs showing no leukocytosis, sodium is low 117, previously was 129-1:30. Potassium slightly elevated 5.6 in [place] lie sample Rest of BMP and liver enzymes were unremarkable. If he was at AB, RSV and coronavirus as our and dissected Influenza A and B, coronavirus, and RSV viruses are undetected D-dimer slightly elevated at 0.74. Perfusion image shows low probability for PE 07/18/2022 Patient is seen and evaluated in room at bedside; continues to need 4 L of O2 per nasal cannula; no fever, nausea vomiting Vitals are stable with a temperature of 97.5, pulse 73, respiration 18 and blood pressure 135/72 07/19/2022 Patient is seen and evaluated in room at bedside; patient's on 2 L of oxygen. Saturations are 95%. Her sodium is up to 126. Clinically, she feels reasonably well. She is short of breath on exertion. She is not receiving any IV fluids. Today's labs include a sodium 126, potassium 4.1, chlorides 94, CO2 32, BUN 14, and creatinine 0.57. Glucose 139. Laboratory review shows a sodium level of 126 which is stable, potassium 4.1, BUN/creatinine of 14/0.57 Patient remains on IV Solu-Medrol 40 mg every 6 hours along with Symbicort inhaler and DuoNeb nebulizer treatment; has been transitioned to oral Augmentin per pulmonary service Objective - Vital Signs Vital signs: Vital Signs Temp 97.5 F L 07/19/22 11:42 Pulse 81 07/19/22 11:42 Resp 16 07/19/22 11:42 BP 129/76 07/19/22 11:42 Pulse Ox 96 07/19/22 11:42 FiO2 Intake & Output 07/18/22 07/19/22 07/19/22 18:59 06:59 18:59 Intake Total 540 5 Output Total 3100 550 Balance -3100 540 -545 Intake: IV 5 Invasive Line 1 5 Oral 540 Output: Urine 3100 550 Other: Voiding Method Toilet Toilet Toilet # Voids 3 2 - Exam -GENERAL: The patient is alert and oriented x3,Drowsy, not in any acute distress. Well developed, well nourished. HEENT: Pupils are round and equally reacting to light. EOMI. No scleral icterus. No conjunctival pallor. Normocephalic, atraumatic. No pharyngeal erythema. No thyromegaly. CARDIOVASCULAR: S1 and S2 present. No murmurs, rubs, or gallops. -PULMONARY: Chest is clear to auscultation, no wheezing or crackles. The Neck ABDOMEN: Soft, nontender, nondistended, normoactive bowel sounds. No palpable organomegaly. MUSCULOSKELETAL: No joint swelling or deformity. EXTREMITIES: No cyanosis, clubbing, or pedal edema. NEUROLOGICAL: Gross neurological examination did not reveal any focal deficits. SKIN: No rashes. no petechiae. - Labs CBC & Chem 7: 07/16/22 06:17 07/19/22 03:49 Labs: Abnormal Lab Results - Last 24 Hours (Table) 07/19/22 Range/Units 03:49 Sodium 126 L (137-145) mmol/L Chloride 94 L (98-107) mmol/L Carbon Dioxide 32 H (22-30) mmol/L Glucose 139 H (74-99) mg/dL Microbiology - Last 24 Hours (Table) 07/15/22 15:35 Blood Culture - Preliminary Blood No Growth after 72 hours 07/15/22 15:50 Blood Culture - Preliminary Blood No Growth after 72 hours Assessment and Plan Assessment: Acute COPD exacerbation Left perihilar pneumonia is suspected Chest pain most likely secondary to above acute hypoxic respiratory failure Nicotine dependence History of GERD History of GI bleed Hypertension History of Crohn's disease, Status post total colectomy and ileostomy History of congenital heart disease as a child Continue with steroids Continue with oxygen as needed Start with antibiotic , Augmentin. Send sputum culture Continue with bronchodilator Pulmonary Consult Check venous Doppler of the legs check procalcitonin Monitor sodium closely Check serum osmolality and urine was mostly on sodium, check TSH and hemoglobin A1c. Consult nephrology team Start gentle hydration with sodium close monitoring Labs and medication were reviewed.. Continue same treatment. Continue with symptomatic treatment. Resume home medication. Monitor labs and vitals. DVT and GI prophylaxis. Further recommendations as per clinical course of the patient DVT prophylaxis: Subcutaneous heparin GI Prophylaxis: Pepcid PT/OT: Pending Prognosis is guarded
[2022-07-19] MEDS: traZODone HCL 100 MG TAB PO SCH (23:14)
[2022-07-19] MEDS: MELATONIN 3 MG TABLET PO PRN (23:14)
[2022-07-20] MEDS: ACETAMINOPHEN TAB 325 MG TAB PO PRN ×3 (03:05→17:41)
[2022-07-20] MEDS: methylPREDNISolone SOD SUCCI 40 MG/ML 1 ML VIAL IV SCH ×4 (06:40→22:59)
[2022-07-20] MEDS: HYDROcodone/APAP 5-325MG 1 EACH TAB PO SCH ×3 (06:40→22:59)
[2022-07-20 08:14] LABS: African American GFR (CKD) >90 (>60 ml/min/1.73 sqM); Anion Gap 2 mmol/L; Blood Urea Nitrogen 17 mg/dL (7-17); Calcium 8.9 mg/dL (8.4-10.2); Carbon Dioxide 33 mmol/L (22-30); Chloride 95 mmol/L (98-107); Glucose 113 mg/dL (74-99); Non-African American GFR(CKD) >90 (>60 ml/min/1.73 sqM); Sodium 130 mmol/L (137-145)
[2022-07-20 08:15] LABS: Magnesium 1.9 mg/dL (1.6-2.3); Potassium 5.2 mmol/L (3.5-5.1)
[2022-07-20] MEDS: IPRATROPIUM-ALBUTEROL 3 ML NEB INHALATION SCH ×4 (09:02→20:37)
[2022-07-20] MEDS: SYMBICORT 160-4.5 MCG INHALER INHALATION SCH ×2 (09:02→20:37)
[2022-07-20] MEDS: FAMOTIDINE 20 MG TAB PO SCH ×2 (09:27→20:09)
[2022-07-20] MEDS: AMOXIC-POT CLAV 875-125MG 1 EACH TAB PO SCH ×2 (09:27→20:09)
[2022-07-20] MEDS: ATORVASTATIN 40 MG TAB PO SCH (09:27)
[2022-07-20] MEDS: HEPARIN SODIUM,PORCINE/PF 5,000 UNIT/0.5 ML SYRINGE SQ SCH ×2 (09:28→20:10)
[2022-07-20] MEDS: buPROPion XL 150 MG TAB.ER.24H PO SCH (09:28)
[2022-07-20] MEDS: NICOTINE 21MG/24HR PATCH TRANSDERM SCH (09:28)
[2022-07-20] MEDS: GABAPENTIN 100 MG CAP PO SCH ×2 (09:28→22:59)
[2022-07-20] MEDS: METOPROLOL TARTRATE 12.5 MG TAB PO SCH ×2 (09:28→20:10)
[2022-07-20] MEDS: methocarbamoL 750 MG TAB PO PRN (10:11)
[2022-07-20] MEDS: MAGNESIUM OXIDE 400 MG TAB PO SCH ×2 (10:12→20:10)
--- NOTE | 2022-07-20 11:42 | P.PN ---
Subjective Patient is seen in follow-up for hyponatremia. Sodium level 130 today. Remains off IV fluids. Oral intake is fair. Blood pressure stable. States she had dry heaving yesterday after taking Samsca. Vital signs are stable. General: Awake. No acute distress. HEENT: Head exam is unremarkable. LUNGS: Breath sounds decreased. HEART: Rate and Rhythm are regular. ABDOMEN: Soft, no distention. EXTREMITITES: No edema. Objective - Vital Signs Vital signs: Vital Signs Temp 97.8 F 07/20/22 08:00 Pulse 84 07/20/22 09:14 Resp 18 07/20/22 08:00 BP 127/71 07/20/22 08:00 Pulse Ox 94 L 07/20/22 09:05 FiO2 Intake & Output 07/19/22 07/20/22 07/20/22 18:59 06:59 18:59 Intake Total 490 400 Output Total 1225 Balance -735 400 Weight 47.174 kg Intake: IV 10 10 Invasive Line 1 10 10 Oral 480 390 Output: Urine 1225 Other: Voiding Method Toilet Toilet Toilet # Voids 2 # Bowel Movements 0 - Labs CBC & Chem 7: 07/16/22 06:17 07/20/22 07:28 Labs: Abnormal Lab Results - Last 24 Hours (Table) 07/20/22 Range/Units 07:28 Sodium 130 L (137-145) mmol/L Potassium 5.2 H (3.5-5.1) mmol/L Chloride 95 L (98-107) mmol/L Carbon Dioxide 33 H (22-30) mmol/L Glucose 113 H (74-99) mg/dL Microbiology - Last 24 Hours (Table) 07/15/22 15:35 Blood Culture - Preliminary Blood No Growth after 96 hours 07/15/22 15:50 Blood Culture - Preliminary Blood No Growth after 96 hours Assessment and Plan Plan: Assessment: 1. Hypovolemic hyponatremia with component of poor solute intake as well as SIADH from nausea. Sodium level 130 today. Status post Samsca yesterday. sodium less than 20 and urine osmolality 290. TSH normal. 2. COPD exacerbation. 3. Possible pneumonia on abx. 4. History of Crohn's disease. 5. Hypomagnesemia from poor intake. On oral magnesium oxide. Better. Plan: Maintain 1500 mL fluid restriction. Patient states she is unable to tolerate sodium chloride tabs. Also didn't tolerate samsca yesterday. Encouraged protein intake. Follow-up echocardiogram. Repeat BMP and magnesium level 2-3 days postdischarge. Follow up outpatient in 7-10 days.
--- NOTE | 2022-07-20 12:21 | P.PN ---
Subjective Progress Note Date: 07/20/22 61-year-old female patient has less for an acute COPD exacerbation. The patient is a chronic smoker. She came into the hospital because of a limited left perihilar infiltrate/pneumonia. She still has a congested cough. Overall, she is improved. Pro-calcitonin level was 0.11 and time of admission. The viral screen was essentially negative and this included Covid 19, RSV and influenza. Dopplers were negative. Clinically she is doing better. She is currently on room air oxygen. She remains on bronchodilators around the clock and she is also on IV Solu-Medrol and the dose at 40 mg every 6 hours. She is currently on Augmentin 1 tablet twice a day. She is also on nicotine patch. No major s welling in lower extremities. The blood culture has been negative. The sodium is at 1:30 which is improved from a baseline of 120, BUN of 17 and a creatinine of 0.6. The patient was dizzy at the time of admission she is currently improved. She is weak and she will need Objective - Vital Signs Vital signs: Vital Signs Temp 98.3 F 07/20/22 12:00 Pulse 72 07/20/22 12:00 Resp 18 07/20/22 12:00 BP 131/80 07/20/22 12:00 Pulse Ox 92 L 07/20/22 12:00 FiO2 Intake & Output 07/19/22 07/20/22 07/20/22 18:59 06:59 18:59 Intake Total 490 400 Output Total 1225 Balance -735 400 Weight 47.174 kg Intake: IV 10 10 Invasive Line 1 10 10 Oral 480 390 Output: Urine 1225 Other: Voiding Method Toilet Toilet Toilet # Voids 2 # Bowel Movements 0 - Exam No acute distress, oriented 3. The patient is currently on room air oxygen HEENT examination is grossly unremarkable. Neck supple. Full range of motion. No adenopathy thyromegaly or neck vein distention. Cardiovascular examination reveals regular rhythm rate. S1-S2 normal. No S3 or S4. No discernible murmur noted. Heart sounds are distant. Lungs reveal scattered bilateral rhonchi and expiratory wheezes. No crackles. Breath sounds equal bilaterally but diminished throughout. Abdomen soft bowel sounds are heard. No masses or tenderness. Extremities are intact. No cyanosis clubbing or edema. Skin is without rash or lesion. Neurologic examination is brief but nonfocal. - Labs CBC & Chem 7: 07/16/22 06:17 07/20/22 07:28 Labs: Abnormal Lab Results - Last 24 Hours (Table) 07/20/22 Range/Units 07:28 Sodium 130 L (137-145) mmol/L Potassium 5.2 H (3.5-5.1) mmol/L Chloride 95 L (98-107) mmol/L Carbon Dioxide 33 H (22-30) mmol/L Glucose 113 H (74-99) mg/dL Microbiology - Last 24 Hours (Table) 07/15/22 15:35 Blood Culture - Preliminary Blood No Growth after 96 hours 07/15/22 15:50 Blood Culture - Preliminary Blood No Growth after 96 hours Assessment and Plan Plan: Acute hypoxemic respiratory failure, secondary to COPD exacerbation. Clinically improving and the patient is less short of breath. Dyspnea, improving History of heavy tobacco use, up to the time of admission. Hyponatremia, improved. In the patient's sodium level is up to 130. Possible pneumonia, left lung. History of hypertension. History of GI bleed. Prior history of pneumonia. PDA repair, at age of 1. Crohn's disease, status post colectomy and ileostomy. Multiple other medical problems and comorbidities. Plan: Continue same treatment for now Maintain incentive spirometer Continue same antibiotic coverage Repeat another chest x-ray today Obtain a CAT scan of the chest and there is any concern for any other abnormalities to suggest masses We'll continue to follow. We'll involve physical therapy.
--- NOTE | 2022-07-20 12:41 | XR ---
EXAMINATION TYPE: XR chest 1V DATE OF EXAM: 07/20/2022 COMPARISON: 07/15/2022 HISTORY: Redness of breath TECHNIQUE: Single frontal view of the chest is obtained. FINDINGS: Cardiomegaly, hyperinflation and coarsened interstitium stable. Chronic rib deformities ar e seen. Diffuse osteopenia. Chronic clavicular fracture. There is a persistent nodule in the left upp er lobe. IMPRESSION: 1. COPD with chronic interstitial lung disease 2. Persistent pulmonary nodule left upper lobe recommend CT chest. 3. Cardiomegaly
[2022-07-20] MEDS: traZODone HCL 100 MG TAB PO SCH (22:59)
[2022-07-20] MEDS: MELATONIN 3 MG TABLET PO PRN (22:59)
[2022-07-21] MEDS: methocarbamoL 750 MG TAB PO PRN (04:56)
[2022-07-21] MEDS: HYDROcodone/APAP 5-325MG 1 EACH TAB PO SCH ×2 (05:46→14:24)
[2022-07-21] MEDS: methylPREDNISolone SOD SUCCI 40 MG/ML 1 ML VIAL IV SCH ×2 (05:46→12:26)
--- NOTE | 2022-07-21 06:07 | P.PN ---
Subjective Progress Note Date: 07/20/22 Presents because of dyspnea that has been going on for about one week, patient is a smoker about 1 pack per day (she was counseled to quit and she agrees but she declines nicotine patch as it causes her nauseated) she is not on home oxygen and she does not follow up with web content editor. Also since yesterday she's having neuritic-like chest pain on the left side, nonradiating about 3- 4/10 in severity that comes and goes. Increased by deep inspiration and coughing. She Makes Yellow Phlegm and She Feels Little Dizzy For More Than a Week and She Has Lost Her Appetite Because of Her Nausea Make Her Not Eating Well and Patient Looks Very Dehydrated This Morning Also the Patient Is Tachypneic Very Tired Looking and Lethargic Once I Finished My Conversation with Her She Went Right Away into Sleep On admission patient was tachycardic around 111 and she was saturating 84% on room air Labs showing no leukocytosis, sodium is low 117, previously was 129-1:30. Potassium slightly elevated 5.6 in [place] lie sample Rest of BMP and liver enzymes were unremarkable. If he was at AB, RSV and coronavirus as our and dissected Influenza A and B, coronavirus, and RSV viruses are undetected D-dimer slightly elevated at 0.74. Perfusion image shows low probability for PE 07/18/2022 Patient is seen and evaluated in room at bedside; continues to need 4 L of O2 per nasal cannula; no fever, nausea vomiting Vitals are stable with a temperature of 97.5, pulse 73, respiration 18 and blood pressure 135/72 07/19/2022 Patient is seen and evaluated in room at bedside; patient's on 2 L of oxygen. Saturations are 95%. Her sodium is up to 126. Clinically, she feels reasonably well. She is short of breath on exertion. She is not receiving any IV fluids. Today's labs include a sodium 126, potassium 4.1, chlorides 94, CO2 32, BUN 14, and creatinine 0.57. Glucose 139. Laboratory review shows a sodium level of 126 which is stable, potassium 4.1, BUN/creatinine of 14/0.57 Patient remains on IV Solu-Medrol 40 mg every 6 hours along with Symbicort inhaler and DuoNeb nebulizer treatment; has been transitioned to oral Augmentin per pulmonary service 07/20/2022 Patient is seen and evaluated and follow-up this morning currently sitting up at the bedside at the side of the bed. Patient denies worsening shortness of breath and is currently on room air and occasionally using 2 L via nasal cannula. Pulmonary is following and repeat chest x-ray is ordered and pending. Patient is continued on IV steroids along with DuoNeb treatments. Nephrology following as well for hyponatremia which is improved also having some mildly elevated potassium. Recommend fluid restrictions and repeat labs in a.m. Patient does have a 2-D echo pending and apparently only one tech available and unable to perform the echo today will likely be done in the a.m. Patient extremely anxious and wanting to go home. Patient reports weakness although refusing rehab. Patient reports staff has not been letting her get up and walk around. Encouraged increase activity as tolerated and also encouraged oral intake. Patient is afebrile denies chest pain or palpitations. Patient denies any worsening shortness of breath. No reports of nausea or vomiting noted and tolerating diet. Review of systems: Constitutional: No reports of fatigue, fever, or chills Cardiovascular: No reports of chest pain or palpitations Respiratory: No reports of worsening shortness of breath or cough GI: No reports of nausea, vomiting, or diarrhea : No reports of dysuria or retention Neurovascular: reports of generalized weakness All medications have been reviewed Active Medications Acetaminophen (Acetaminophen Tab 325 Mg Tab) 650 mg PO Q4H PRN PRN Reason: Pain Last Admin: 07/20/22 09:35 Dose: 650 mg Hydrocodone Bitart/Acetaminophen (Hydrocodone/Apap 5-325mg 1 Each Tab) 1 each PO Q8H [facility] Last Admin: 07/20/22 14:17 Dose: 1 each Albuterol/Ipratropium (Ipratropium-Albuterol 3 Ml Neb) 3 ml INHALATION RT-QID [facility] Last Admin: 07/20/22 12:42 Dose: 3 ml Albuterol/Ipratropium (Ipratropium-Albuterol 3 Ml Neb) 3 ml INHALATION RT-Q2H PRN PRN Reason: Shortness Of Breath Or Wheezing Amoxicillin/Clavulanate Potassium (Amoxic-Pot Clav 875-125mg 1 Each Tab) 1 each PO Q12HR [facility]; Protocol Last Admin: 07/20/22 09:27 Dose: 1 each Atorvastatin Calcium (Atorvastatin 40 Mg Tab) 40 mg PO DAILY [facility] Last Admin: 07/20/22 09:27 Dose: 40 mg Budesonide/Formoterol Fumarate (Symbicort 160-4.5 Mcg Inhaler) 2 puff INHALATION RT-BID [facility] Last Admin: 07/20/22 09:02 Dose: 2 puff Bupropion HCl (Bupropion Xl 150 Mg Tab.Er.24h) 150 mg PO DAILY [facility] Last Admin: 07/20/22 09:28 Dose: 150 mg Famotidine (Famotidine 20 Mg Tab) 20 mg PO BID [facility] Last Admin: 07/20/22 09:27 Dose: 20 mg Gabapentin (Gabapentin 100 Mg Cap) 100 mg PO DAILY [facility] Last Admin: 07/20/22 09:28 Dose: 100 mg Gabapentin (Gabapentin 100 Mg Cap) 200 mg PO HS [facility] Last Admin: 07/19/22 23:14 Dose: 200 mg Heparin Sodium (Porcine) (Heparin Sodium,Porcine/Pf 5,000 Unit/0.5 Ml Syringe) 5,000 unit SQ Q12HR [facility] Last Admin: 07/20/22 09:28 Dose: 5,000 unit Magnesium Oxide (Magnesium Oxide 400 Mg Tab) 400 mg PO BID [facility] Last Admin: 07/20/22 10:12 Dose: 400 mg Melatonin (Melatonin 3 Mg Tablet) 12 mg PO HS PRN PRN Reason: Insomnia Last Admin: 07/19/22 23:14 Dose: 12 mg Methocarbamol (Methocarbamol 750 Mg Tab) 750 mg PO Q12H PRN PRN Reason: Muscle Pain Last Admin: 07/20/22 10:11 Dose: 750 mg Methylprednisolone Sodium Succinate (Methylprednisolone Sod Succi 40 Mg/Ml 1 Ml Vial) 40 mg IV Q6HR [facility] Last Admin: 07/20/22 11:27 Dose: 40 mg Metoprolol Tartrate (Metoprolol Tartrate 12.5 Mg Tab) 12.5 mg PO BID [facility] Last Admin: 07/20/22 09:28 Dose: 12.5 mg Miscellaneous Information (Magnesium Replacement Protocol 1 Each Misc) 1 each MISCELLANE DAILY PRN; Protocol PRN Reason: Per Protocol Miscellaneous Information (Magnesium Replacement Protocol 1 Each Misc) 1 each MISCELLANE DAILY PRN; Protocol PRN Reason: Per Protocol Naloxone HCl (Naloxone 0.4 Mg/Ml 1 Ml Vial) 0.2 mg IV Q2M PRN PRN Reason: Opioid Reversal Nicotine (Nicotine 21mg/24hr Patch) 1 patch TRANSDERM DAILY [facility] Last Admin: 07/20/22 09:28 Dose: 1 patch Ondansetron HCl (Ondansetron 4 Mg/2 Ml Vial) 4 mg IVP Q6HR PRN PRN Reason: Nausea And Vomiting Last Admin: 07/19/22 14:35 Dose: 4 mg Trazodone HCl (Trazodone Hcl 100 Mg Tab) 100 mg PO HS [facility] Last Admin: 07/19/22 23:14 Dose: 100 mg Physical Exam: GENERAL: The patient is alert and oriented x3, sitting up on the side of the bed, thin built, petite female HEENT: Pupils are round and equally reacting to light. EOMI. No scleral icterus. No conjunctival pallor. Normocephalic, atraumatic. No pharyngeal erythema. No thyromegaly. CARDIOVASCULAR: S1 and S2 muffled PULMONARY: Diminished breath sounds bilaterally with some faint expiratory wheezing noted, coarse rhonchi noted ABDOMEN: Soft, nontender, nondistended, normoactive bowel sounds. No palpable organomegaly. MUSCULOSKELETAL: No joint swelling or deformity. EXTREMITIES: No cyanosis, clubbing, or pedal edema. NEUROLOGICAL: Gross neurological examination did not reveal any focal deficits. Diffusely weak SKIN: No rashes. no petechiae. Assessment: Acute COPD exacerbation Left perihilar pneumonia is suspected Chest pain most likely secondary to above acute hypoxic respiratory failure secondary to COPD exacerbation Continued ongoing Nicotine dependence History of GERD History of GI bleed Hypertension History of Crohn's disease, Status post total colectomy and ileostomy History of congenital heart disease as a child GI prophylaxis DVT prophylaxis Full code Plan: Recommend to continue with current medications and management with pulmonary following Patient is continued on occasional 2 L via nasal cannula although has been maintaining 90% or above on room air, will assess for any home O2 Patient is continued on Augmentin and will continue Nephrology is also following for hyponatremia which is improved at 130 and potassium mildly elevated at 5.3, recommend repeat labs in the a.m. and will continue fluid restrictions Encouraged increased activity is tolerated as patient reports continued weakness . Patient reports she is weak because nursing staff was not allowing her to get up due to her respiratory status. PT/OT to evaluate 2-D echo remains pending and tool grinding technician reports they only have one available staff member and unable to perform the 2-D echo today and will be done in the a.m. Due to multiple complex medical issues, prognosis is guarded Possible discharge in 24 hours The impression and plan of care has been dictated by Manuela Gallego, Nurse Practitioner as directed. Dr. Shawn MD I have performed a history and examination and MDM of this patient, discussed the same with the dictator, and agree with the dictator's assessment and plan as written ,documented as a scribe. Based on total visit time, I have performed more than 50% of the visit. Objective - Vital Signs Vital signs: Vital Signs Temp 98.3 F 07/20/22 12:00 Pulse 72 07/20/22 14:00 Resp 18 07/20/22 14:00 BP 131/80 07/20/22 12:00 Pulse Ox 92 L 07/20/22 12:00 FiO2 Intake & Output 07/19/22 07/20/22 07/20/22 18:59 06:59 18:59 Intake Total 490 400 Output Total 1225 Balance -735 400 Weight 47.174 kg Intake: IV 10 10 Invasive Line 1 10 10 Oral 480 390 Output: Urine 1225 Other: Voiding Method Toilet Toilet Toilet # Voids 2 2 # Bowel Movements 0 - Labs CBC & Chem 7: 07/16/22 06:17 07/20/22 07:28 Labs: Abnormal Lab Results - Last 24 Hours (Table) 07/20/22 Range/Units 07:28 Sodium 130 L (137-145) mmol/L Potassium 5.2 H (3.5-5.1) mmol/L Chloride 95 L (98-107) mmol/L Carbon Dioxide 33 H (22-30) mmol/L Glucose 113 H (74-99) mg/dL Microbiology - Last 24 Hours (Table) 07/15/22 15:35 Blood Culture - Preliminary Blood No Growth after 96 hours 07/15/22 15:50 Blood Culture - Preliminary Blood No Growth after 96 hours
[2022-07-21] MEDS: MAGNESIUM OXIDE 400 MG TAB PO SCH (08:14)
[2022-07-21] MEDS: HEPARIN SODIUM,PORCINE/PF 5,000 UNIT/0.5 ML SYRINGE SQ SCH (08:14)
[2022-07-21] MEDS: ATORVASTATIN 40 MG TAB PO SCH (08:14)
[2022-07-21] MEDS: GABAPENTIN 100 MG CAP PO SCH (08:14)
[2022-07-21] MEDS: NICOTINE 21MG/24HR PATCH TRANSDERM SCH (08:14)
[2022-07-21] MEDS: buPROPion XL 150 MG TAB.ER.24H PO SCH (08:15)
[2022-07-21] MEDS: METOPROLOL TARTRATE 12.5 MG TAB PO SCH (08:15)
[2022-07-21] MEDS: FAMOTIDINE 20 MG TAB PO SCH (08:15)
[2022-07-21] MEDS: AMOXIC-POT CLAV 875-125MG 1 EACH TAB PO SCH (08:15)
[2022-07-21] MEDS: ACETAMINOPHEN TAB 325 MG TAB PO PRN (09:03)
[2022-07-21] MEDS: SYMBICORT 160-4.5 MCG INHALER INHALATION SCH (09:15)
[2022-07-21] MEDS: IPRATROPIUM-ALBUTEROL 3 ML NEB INHALATION SCH ×2 (09:15→12:31)
[2022-07-21] MEDS ORDERED: RX INFO: IV CONTRAST WAS GIVEN 1 EACH MISC MISCELLANE PRN (10:38)
--- NOTE | 2022-07-21 11:37 | P.PN ---
Subjective Patient is seen for follow-up for hyponatremia. Status post [facility]. Serum sodium was 1:30 yesterday Labs are pending from today No significant complaints. Objective - Vital Signs Vital signs: Vital Signs Temp 98.1 F 07/21/22 04:00 Pulse 80 07/21/22 09:30 Resp 18 07/21/22 08:00 BP 116/68 07/21/22 08:00 Pulse Ox 95 07/21/22 09:17 FiO2 Intake & Output 07/20/22 07/21/22 07/21/22 18:59 06:59 18:59 Intake Total 360 Output Total 1850 Balance -1490 Weight 47.174 kg Intake: Oral 360 Output: Urine 1400 Stool 450 Other: Voiding Method Toilet Toilet # Voids 2 - Exam Awake, comfortable, no acute distress Examination of the heart S1 and S2 Examination lungs bilateral breath sounds are heard Abdomen is soft nontender Examination lower extremities shows no evidence of edema REPLENISHMENT SPECIALIST exam grossly intact - Labs CBC & Chem 7: 07/16/22 06:17 07/20/22 07:28 Labs: Microbiology - Last 24 Hours (Table) 07/15/22 15:50 Blood Culture - Preliminary Blood No Growth after 120 hours 07/15/22 15:35 Blood Culture - Preliminary Blood No Growth after 120 hours Assessment and Plan Assessment: 1. Hypovolemic hyponatremia with component of poor solute intake as well as SIADH from nausea. Sodium level 130 yesterday. Status post [facility]. sodium less than 20 and urine osmolality 290. TSH normal. Sodium pending from today 2. COPD exacerbation. 3. Possible pneumonia on abx. 4. History of Crohn's disease. 5. Hypomagnesemia from poor intake. On oral magnesium oxide. Better. Plan: Continue with fluid restriction Follow-up on labs from today
--- NOTE | 2022-07-21 11:44 | CA ---
Transthoracic Echo Report Name: Little Roberson Age: 61 Gender: F : 1960 Exam Date: 07/21/2022 10:22 Exam Location: [facility] Ht (in): 68 Wt (lb): 104 Ordering Physician: Manuela Gallego Attending/Referring Phys: Carbonating Stone Cleaner Dorothea Rader RDCS Procedure CPT: Indications: SOB, murmur Cardiac Hx: Technical Quality: Fair Contrast 1: Total Dose (mL): Contrast 2: Total Dose (mL): MEASUREMENTS (Male / Female) Normal Values 2D ECHO LV Diastolic Diameter PLAX 2.9 cm 4.2 - 5.9 / 3.9 - 5.3 cm LV Systolic Diameter PLAX 1.7 cm IVS Diastolic Thickness 1.0 cm 0.6 - 1.0 / 0.6 - 0.9 cm LVPW Diastolic Thickness 1.1 cm 0.6 - 1.0 / 0.6 - 0.9 cm LV Relative Wall Thickness 0.7 RV Internal Dim ED PLAX 2.4 cm LVOT Diameter 1.8 cm LA Volume 50.9 cm??? 18 - 58 / 22 - 52 cm??? DOPPLER AV Peak Velocity 344.0 cm/s AV Peak Gradient 47.3 mmHg AV Mean Velocity 250.1 cm/s AV Mean Gradient 27.4 mmHg AV Velocity Time Integral 83.8 cm LVOT Peak Velocity 99.8 cm/s LVOT Peak Gradient 4.0 mmHg LVOT Velocity Time Integral 26.1 cm LVOT Stroke Volume 68.6 cm??? LVOT Stroke Volume Index 44.3 ml/m??? LVOT Cardiac Index 3138.7 cm???/min???m??? AV Area Cont Eq vti 0.8 cm??? AV Area Cont Eq pk 0.8 cm??? MV Area PHT 3.2 cm??? Mitral E Point Velocity 136.4 cm/s Mitral A Point Velocity 126.1 cm/s Mitral E to A Ratio 1.1 MV Deceleration Time 240.3 ms MV E' Velocity 6.8 cm/s Mitral E to MV E' Ratio 20.1 FINDINGS Left Ventricle Mildly increased left ventricular wall thickness. Normal left ventricular systolic function with no obvious regional wall motion abnormalities. Left ventricular ejection fraction is estimated at 55 %. Right Ventricle Normal right ventricular size and function. Right ventricular systolic pressure within normal limits. Right Atrium Mild right atrial dilatation. Left Atrium Mild left atrial dilatation. Mitral Valve Mild mitral annular calcification. Mitral valve thickened. Mild mitral regurgitation. Aortic Valve [id number] aortic stenosis with a peak gradient of 47 mmHg and a mean gradient of 27 mmHg. Tricuspid Valve Structurally normal tricuspid valve. Mild tricuspid regurgitation. Pulmonic Valve Structurally normal pulmonic valve. Mild pulmonic regurgitation. Pericardium No pericardial effusion. Aorta Normal size aortic root and proximal ascending aorta. CONCLUSIONS Normal LV systolic function Moderate aortic stenosis Mild mitral regurgitation Previewed by: Dr. Alexx Lerner MD (Electronically Signed) Final Date: 21 July 2022 11:44
[2022-07-21 12:14] LABS: African American GFR (CKD) >90 (>60 ml/min/1.73 sqM); Anion Gap 5 mmol/L; Blood Urea Nitrogen 15 mg/dL (7-17); Calcium 9.2 mg/dL (8.4-10.2); Carbon Dioxide 31 mmol/L (22-30); Chloride 91 mmol/L (98-107); Glucose 101 mg/dL (74-99); Magnesium 1.9 mg/dL (1.6-2.3); Non-African American GFR(CKD) >90 (>60 ml/min/1.73 sqM); Potassium 4.5 mmol/L (3.5-5.1); Sodium 127 mmol/L (137-145)
[2022-07-21 12:37] VITALS: BP 144/81; PULSE 81; RESP 16; TEMP 98.3
--- NOTE | 2022-07-21 12:43 | CT ---
EXAMINATION TYPE: CT chest w con DATE OF EXAM: 07/21/2022 COMPARISON: Chest x-ray 07/20/2022 HISTORY: nodules CT DLP: 191.7 mGycm Automated exposure control for dose reduction was used. TECHNIQUE: CT scan of the chest is performed with IV Contrast, patient injected with 100 mL of Isovue 300. MIP Images are created on CT scanner and reviewed. 3D reconstructed images are created on an independent workstation and reviewed. FINDINGS: LUNGS: Mild emphysematous changes are seen with areas of subsegmental consolidation. There is a nodul ar subpleural density seen in the left upper lobe corresponding to chest x-ray abnormality measuring 5 mm. There is no pneumothorax. There is a 3 mm nodule in the right upper lobe axial image 20. No foc al pneumonia. MEDIASTINUM: There are no greater than 1 cm hilar or mediastinal lymph nodes. No pericardial effusi on is seen. There is aneurysmal dilation of the ascending aorta measuring 4.1 x 4.2 cm. Heart is mar kedly enlarged and there is mild coronary artery calcification. OTHER: Hypertrophic and degenerative changes spine is seen with a chronic appearing compression defo rmity in the upper thoracic spine. Sclerosis involving upper thoracic segment likely related to a [place]. 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 Chronic rib d eformities on the left suggest remote trauma. IMPRESSION: 1. Area Of nodularity seen by chest x-ray corresponds to an area of nodular subsegmental consolidatio n felt to be most likely inflammatory. Atelectasis is favored. 2. Additional 3 mm nodule right upper lobe too small to characterize could be followed in 12 months b ase is also felt most likely benign. 3. Cardiomegaly with ascending aortic aneurysm measuring 4.1 x 4.2 cm 3. Chronic appearing compression fracture upper thoracic spine 4. 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
--- NOTE | 2022-07-21 14:40 | P.PN ---
Subjective Progress Note Date: 07/21/22 61-year-old female patient has less for an acute COPD exacerbation. The patient is a chronic smoker. She came into the hospital because of a limited left perihilar infiltrate/pneumonia. She still has a congested cough. Overall, she is improved. Pro-calcitonin level was 0.11 and time of admission. The viral screen was essentially negative and this included Covid 19, RSV and influenza. Dopplers were negative. Clinically she is doing better. She is currently on room air oxygen. She remains on bronchodilators around the clock and she is also on IV Solu-Medrol and the dose at 40 mg every 6 hours. She is currently on Augmentin 1 tablet twice a day. She is also on nicotine patch. No major s welling in lower extremities. The blood culture has been negative. The sodium is at 1:30 which is improved from a baseline of 120, BUN of 17 and a creatinine of 0.6. The patient was dizzy at the time of admission she is currently improved. She is weak and she will need On today's evaluation of 08/07/2022, the patient is doing well. A repeat chest x-ray was done and showed some persistent pulmonary nodule in the left upper lobe and for that reason a CAT scan of the chest was recommended. There was COPD and some chronic changes mainly interstitial and cardiomegaly. Based on all this, CAT scan of the chest was ordered and the CAT scan showed area of moderate intensity was essentially asymptomatic today and atelectasis was favored in the left upper lobe. There was 3 mm nodule in the right upper lobe that was small to characterize and there was No megaly an ascending aortic aneurysm measuring 4 point ACM and chronic appearing compression fraction of the upper thoracic spine. Also possibly congenital anomaly. Meanwhile, the patient underwent also an echocardiogram that showed preserved LV function and there was moderate aortic stenosis. The patient was found to have an ejection fraction of 55%. Objective - Vital Signs Vital signs: Vital Signs Temp 98.3 F 07/21/22 12:35 Pulse 81 07/21/22 12:35 Resp 16 07/21/22 12:35 BP 144/81 07/21/22 12:35 Pulse Ox 92 L 07/21/22 12:35 FiO2 Intake & Output 07/20/22 07/21/22 07/21/22 18:59 06:59 18:59 Intake Total 360 Output Total 1850 Balance -1490 Weight 47.174 kg Intake: Oral 360 Output: Urine 1400 Stool 450 Other: Voiding Method Toilet Toilet # Voids 2 - Exam No acute distress, oriented 3. The patient is currently on room air oxygen HEENT examination is grossly unremarkable. Neck supple. Full range of motion. No adenopathy thyromegaly or neck vein distention. Cardiovascular examination reveals regular rhythm rate. S1-S2 normal. No S3 or S4. No discernible murmur noted. Heart sounds are distant. Lungs reveal scattered bilateral rhonchi and expiratory wheezes. No crackles. Breath sounds equal bilaterally but diminished throughout. Abdomen soft bowel sounds are heard. No masses or tenderness. Extremities are intact. No cyanosis clubbing or edema. Skin is without rash or lesion. Neurologic examination is brief but nonfocal. - Labs CBC & Chem 7: 07/16/22 06:17 07/21/22 11:20 Labs: Abnormal Lab Results - Last 24 Hours (Table) 07/21/22 Range/Units 11:20 Sodium 127 L (137-145) mmol/L Chloride 91 L (98-107) mmol/L Carbon Dioxide 31 H (22-30) mmol/L Glucose 101 H (74-99) mg/dL Microbiology - Last 24 Hours (Table) 07/15/22 15:50 Blood Culture - Preliminary Blood No Growth after 120 hours 07/15/22 15:35 Blood Culture - Preliminary Blood No Growth after 120 hours Assessment and Plan Plan: Acute hypoxemic respiratory failure, secondary to COPD exacerbation. Clinically improving and the patient is less short of breath. The CAT scan of the chest showed some atelectatic changes in left upper lobe, COPD. No evidence of any lung masses or ongoing pneumonia. Dyspnea, improving Moderate aortic stenosis History of heavy tobacco use, up to the time of admission. Hyponatremia, improved Possible pneumonia, left lung. CAT scan of the chest was reviewed and it showed some atelectatic changes in the left upper lobe History of hypertension. History of GI bleed. 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 Crohn's disease, status post colectomy and ileostomy. Multiple other medical problems and comorbidities. Plan: Continue Augmentin Patient can be discharged home on Symbicort in addition to routine bronchodilators Prednisone burst taper at time of discharge Continue using incentive spirometer Discussed with her the CAT scan findings Cleared for discharge from the standpoint
[2022-07-21] MEDS ORDERED: predniSONE 20 MG TAB PO SCH (15:00)
--- NOTE | 2022-07-23 02:24 | P.DS ---
Providers Date of admission: 07/15/22 17:25 Expected date of discharge: 07/21/22 Attending physician: Lianet Escobar Consults: 07/15/22 17:46 Consult Physician Routine Consulting Provider: Alfredo Grover Consult Reason/Comments: hypoxemia, possible pneumonia versus neoplasm COPD versus pulmonary fibrosi Do you want consulting provider notified?: Yes 07/16/22 06:35 Consult Physician Urgent Consulting Provider: Roney Cedillo Consult Reason/Comments: hyponatremia Do you want consulting provider notified?: Yes Primary care physician: Benito Joe [facility] Course: Final diagnosis Acute COPD exacerbation Left perihilar pneumonia is suspected Chest pain most likely secondary to above, pleuritic in nature acute hypoxic respiratory failure secondary to COPD exacerbation Continued ongoing Nicotine dependence History of GERD History of GI bleed Hypertension History of Crohn's disease, Status post total colectomy and ileostomy History of congenital heart disease as a child GI prophylaxis DVT prophylaxis Full code Discharge disposition Patient is being discharged in a stable condition with guarded prognosis to home. Patient will follow-up with in the outpatient setting upon discharge. Patient is to also follow up with pulmonary and nephrology as scheduled. Recommend repeat labs. Patient will continue on a short course of prednisone taper along with oral Augmentin twice daily for the next 4 days to complete the course. Total time taken is greater than 35 minutes. Hospital course This is a 61-year-old female who was recently admitted with increasing shortness of breath with possible pneumonia and pleuritic chest pain and admitted for COPD exacerbation. [place] following closely. Patient was maintained on IV steroids along with DuoNeb treatment. Patient also with concerns for pneumonia started on antibiotics and we'll transition to oral Augmentin on discharge to complete the course. She will also complete a prednisone taper on discharge and close outpatient follow-up with pulmonary. Patient with hyponatremia recommending fluid restrictions and close outpatient follow-up with nephrology. Recommend repeat labs in the outpatient setting. Patient extremely anxious about wanting to go home. Patient has been cleared by pulmonary and consultations. Currently no reports of chest pain, shortness of breath, or palpitations. Patient is afebrile. No reports of nausea or vomiting and patient is tolerating diet. Patient will be discharged home today. Guarded prognosis. Physical exam: Gen: This is a 51-year-old female awake, alert and oriented 3, well-developed, well-nourished, elderly-appearing HEENT: Head is atraumatic, normocephalic. Pupils equal, round. Sclerae is anic teric. NECK: Supple. No JVD. No lymphadenopathy. No thyromegaly. LUNGS: Diminished breath sounds bilaterally with some scattered rhonchi and no wheezing noted. No intercostal retractions. HEART: S1, S2 are muffled ABDOMEN: Soft. Bowel sounds are present. No masses. No tenderness. EXTREMITIES: No pedal edema. No calf tenderness. NEUROLOGICAL: Patient is awake, alert and oriented x3. Cranial nerves 2 through 12 are grossly intact. Please refer to medication reconciliation sheet for a list of medications. The impression and plan of care has been dictated by Manuela Gallego, Nurse Practitioner as directed. Dr. Shawn MD I have performed a history and examination and MDM of this patient, discussed the same with the dictator, and agree with the dictator's assessment and plan as written ,documented as a scribe. Based on total visit time, I have performed more than 50% of the visit. Patient Condition at Discharge: Stable Plan - Discharge Summary Discharge Rx Participant: No New Discharge Prescriptions: New Famotidine [Pepcid] 20 mg PO BID 30 Days #60 tab predniSONE 10 mg PO DIRECTED #40 tab Amoxic-Pot Clav 875-125Mg [Augmentin 875-125] 1 each PO Q12HR 4 Days #8 tab Magnesium Oxide [Mag-Ox] 400 mg PO BID 30 Days #60 tab Budesonide-Formot 160-4.5 Mcg [Symbicort 160-4.5 Mcg Inhaler] 2 puff INHALATION RT-BID 30 Days #1 each Continue Metoprolol Tartrate [Lopressor] 12.5 mg PO BID Acetaminophen [Tylenol] 650 mg PO Q4H PRN PRN Reason: Pain methocarbamoL [Robaxin-750] 750 mg PO Q12H PRN PRN Reason: Muscle Pain Gabapentin [Neurontin] 100 mg PO DAILY buPROPion XL [Wellbutrin XL] 150 mg PO DAILY Vitamin D3 50,000iu 50,000 unit PO WERNER Melatonin 12mg 12 mg PO HS traZODone HCL [Desyrel] 100 mg PO HS Gabapentin [Neurontin] 200 mg PO HS Atorvastatin [Lipitor] 40 mg PO DAILY Magnesium Oxide [Magnesium] 500 mg PO DAILY HYDROcodone/APAP 5-325MG [[place] 5-325] 1 tab PO Q8H Discharge Medication List Metoprolol Tartrate [Lopressor] 12.5 mg PO BID 08/02/17 [History] Acetaminophen [Tylenol] 650 mg PO Q4H PRN 01/14/22 [History] Atorvastatin [Lipitor] 40 mg PO DAILY 01/14/22 [History] Gabapentin [Neurontin] 100 mg PO DAILY 01/14/22 [History] Gabapentin [Neurontin] 200 mg PO HS 01/14/22 [History] buPROPion XL [Wellbutrin XL] 150 mg PO DAILY 01/14/22 [History] methocarbamoL [Robaxin-750] 750 mg PO Q12H PRN 01/14/22 [History] traZODone HCL [Desyrel] 100 mg PO HS 01/14/22 [History] HYDROcodone/APAP 5-325MG [[place]ry 5-325] 1 tab PO Q8H 07/15/22 [History] Magnesium Oxide [Magnesium] 500 mg PO DAILY 07/15/22 [History] Melatonin 12mg 12 mg PO HS 07/15/22 [History] Vitamin D3 50,000iu 50,000 unit PO WERNER 07/15/22 [History] Amoxic-Pot Clav 875-125Mg [Augmentin 875-125] 1 each PO Q12HR 4 Days #8 tab 07/21/22 [Rx] Budesonide-Formot 160-4.5 Mcg [Symbicort 160-4.5 Mcg Inhaler] 2 puff INHALATION RT-BID 30 Days #1 each 07/21/22 [Rx] Famotidine [Pepcid] 20 mg PO BID 30 Days #60 tab 07/21/22 [Rx] Magnesium Oxide [Mag-Ox] 400 mg PO BID 30 Days #60 tab 07/21/22 [Rx] predniSONE 10 mg PO DIRECTED #40 tab 07/21/22 [Rx] Follow up Appointment(s)/Referral(s): Benito Diaz MD [Primary Care Provider] - 1-2 days Aniceto Sy MD [STAFF PHYSICIAN] - 1 Week Raven Flores DO [STAFF PHYSICIAN] - 3 Weeks Courtney Baker MD [STAFF PHYSICIAN] - 1 Week Ambulatory/Diagnostic Orders: Basic Metabolic Panel [LAB.AMB] Time Frame: 3 Days, Location: None Selected Patient Instructions/Handouts: Hyponatremia (DC), COPD (Chronic Obstructive Pulmonary Disease) (DC), Bacterial Pneumonia (DC) Activity/Diet/Wound Care/Special Instructions: Activity Limited until follow-up Follow-up with primary care provider on discharge Follow-up with pulmonary outpatient Follow-up with nephrology outpatient Recommend repeat labs in 2-3 days Continue fluids restrictions of 45 ounces daily Discharge Disposition: HOME SELF-CARE
== END 2022-07-21 15:12 | disposition home or self-care (01) | DRG 193 ==
LOC: EC 14:14 → 3SCARD 17:25
PROVIDERS: ADMIT Hospitalist; ATTEND Hospitalist
DX: J18.9 Pneumonia, unspecified organism (principal); J96.01 Acute respiratory failure with hypoxia; E22.2 Syndrome of inappropriate secretion of antidiuretic hormone; J44.1 Chronic obstructive pulmonary disease with (acute) exacerbation; J44.0 Chronic obstructive pulmonary disease with (acute) lower respiratory infection; K50.90 Crohn's disease, unspecified, without complications; J98.11 Atelectasis; I71.21 Aneurysm of the ascending aorta, without rupture; Z43.2 Encounter for attention to ileostomy; Z20.822 Contact with and (suspected) exposure to COVID-19; Z28.310 Unvaccinated for COVID-19; I10 Essential (primary) hypertension; E86.0 Dehydration; E86.1 Hypovolemia; E83.42 Hypomagnesemia; M48.54XS Collapsed vertebra, not elsewhere classified, thoracic region, sequela of fracture; I35.0 Nonrheumatic aortic (valve) stenosis; N93.9 Abnormal uterine and vaginal bleeding, unspecified; K21.9 Gastro-esophageal reflux disease without esophagitis; F17.210 Nicotine dependence, cigarettes, uncomplicated; Z71.6 Tobacco abuse counseling; Z79.899 Other long term (current) drug therapy; Z87.01 Personal history of pneumonia (recurrent); Z87.74 Personal history of (corrected) congenital malformations of heart and circulatory system; Z88.1 Allergy status to other antibiotic agents; Z88.5 Allergy status to narcotic agent; Z91.018 Allergy to other foods; Z88.0 Allergy status to penicillin; Z91.041 Radiographic dye allergy status
CPT/HCPCS: 36415; 71045; 71046; 71260; 78580; 80048; 80051; 80053; 83036; 83605; 83735; 83880; 83930; 83935; 84145; 84295; 84300; 84443; 84484; 85025; 85379; 85610; 85730; 87040; 87636; 93005; 93306; 93970; 94640; 94760; 96361; 96372; 96374; 96375; 96376; 99285

== ENCOUNTER 2023-01-30 23:43 | Emergency (ER) | payer BC ==
[2023-01-30 23:52] VITALS: TEMP 97.6
--- NOTE | 2023-01-31 00:27 | XR ---
EXAM: XR Chest, 2 Views CLINICAL HISTORY: ITS.REASON XR Reason: CP TECHNIQUE: Frontal and lateral views of the chest. COMPARISON: 07/21/2022. FINDINGS: Lungs: Unremarkable. No consolidative changes. Pleural space: Unremarkable. No pneumothorax. No pleural effusions. Heart: Mild cardiomegaly. Mediastinum: Unremarkable. Bones/joints: Osteopenia. Moderate to severe degenerative disease of the thoracic spine. Gentle levoscoliosis. Chronic compression fractures of midthoracic vertebral bodies and kyphosis. IMPRESSION: 1. Osteopenia. 2. Chronic compression fractures. 3. Kyphoscoliosis. 4. Cardiomegaly. 5. No consolidative changes. 6. No pleural effusions.
--- NOTE | 2023-01-31 01:05 | ED ---
General Adult HPI - General Chief complaint: Chest Pain Stated complaint: chest pain Time Seen by Provider: 01/30/23 23:56 Source: patient Mode of arrival: wheelchair Limitations: no limitations - History of Present Illness Initial comments: This is a 62-year-old female with an extensive past medical history including Crohn's disease, hypertension, hyperlipidemia presents emergency department for left-sided chest pain. The patient did state that she had intermittent left sided chest pain throughout the day today that had not improved and therefore she came to the emergency department. The patient stated that she had intermittent episodes of diaphoresis throughout the day but did not associate this with any chest pain. The patient stated the pain is in the left chest, left arm and left jaw intermittently throughout the day. The patient stated that she has never had issues like this in the past. The patient denied any other acute pain or complaint at this time. - Related Data Home Medications Medication Instructions Recorded Confirmed Metoprolol Tartrate [Lopressor] 12.5 mg PO BID 08/02/17 07/15/22 Acetaminophen [Tylenol] 650 mg PO Q4H PRN 01/14/22 07/15/22 Atorvastatin [Lipitor] 40 mg PO DAILY 01/14/22 07/15/22 Gabapentin [Neurontin] 100 mg PO DAILY 01/14/22 07/15/22 Gabapentin [Neurontin] 200 mg PO HS 01/14/22 07/15/22 buPROPion XL [Wellbutrin XL] 150 mg PO DAILY 01/14/22 07/15/22 methocarbamoL [Robaxin-750] 750 mg PO Q12H PRN 01/14/22 07/15/22 traZODone HCL [Desyrel] 100 mg PO HS 01/14/22 07/15/22 HYDROcodone/APAP 5-325MG [[place] 1 tab PO Q8H 07/15/22 07/15/22 5-325] Magnesium Oxide [Magnesium] 500 mg PO DAILY 07/15/22 07/15/22 Melatonin 12mg 12 mg PO HS 07/15/22 07/15/22 Vitamin D3 50,000iu 50,000 unit PO WERNER 07/15/22 07/15/22 Previous Rx's Medication Instructions Recorded Amoxic-Pot Clav 875-125Mg 1 each PO Q12HR 4 Days #8 tab 07/21/22 [Augmentin 875-125] Budesonide-Formot 160-4.5 Mcg 2 puff INHALATION RT-BID 30 Days 07/21/22 [Symbicort 160-4.5 Mcg Inhaler] #1 each Famotidine [Pepcid] 20 mg PO BID 30 Days #60 tab 07/21/22 Magnesium Oxide [Mag-Ox] 400 mg PO BID 30 Days #60 tab 07/21/22 predniSONE 10 mg PO DIRECTED #40 tab 07/21/22 Allergies Allergy/AdvReac Type Severity Reaction Status Date / Time ciprofloxacin [From Cipro] Allergy Swelling Verified 07/15/22 15:53 ciprofloxacin HCl Allergy Swelling Verified 07/15/22 15:53 [From Cipro] erythromycin base Allergy Vomiting Verified 07/15/22 15:53 [Erythromycin Base] morphine Allergy Vomiting Verified 07/17/22 08:12 Mushroom Allergy Anaphylaxis Verified 07/15/22 15:53 povidone-iodine Allergy Rash/Hives Verified 07/15/22 15:53 [From Betadine] soap [From Betadine] Allergy Rash/Hives Verified 07/15/22 15:53 tolvaptan [From Samsca] AdvReac Nausea & Verified 07/19/22 17:21 Vomiting Review of Systems ROS Statement: Those systems with pertinent positive or pertinent negative responses have been documented in the HPI. ROS Other: All systems not noted in ROS Statement are negative. 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, seasonal allergies, had 1 seizure in related to hyponeutremia melena PDA repair at 1 years of age, rotator cuff repair right sided lumpectomy total colectomy and ileostomy 1990 tonsillectomy and adenoidectomy is a cell carcinoma removed History of Any Multi-Drug Resistant Organisms: None Reported Past Surgical History: Bowel Resection, Breast Surgery Additional Past Surgical History / Comment(s): colectomy secondary to chrohns resulting in ileostomy, heart surgery when 1years old, bilateral rotator cuff, epidural back injections Past Anesthesia/Blood Transfusion Reactions: No Reported Reaction Past Psychological History: No Psychological Hx Reported Smoking Status: Former smoker Past Alcohol Use History: None Reported Past Drug Use History: None Reported - Past Family History Mother Family Medical History: Cancer, Coronary Artery Disease (CAD), Hypertension Additional Family Medical History / Comment(s): pt has had 1 seizure related to hyponeutremia Father Family Medical History: Coronary Artery Disease (CAD) General Exam Limitations: no limitations General appearance: alert, in no apparent distress Head exam: Present: atraumatic, normocephalic, normal inspection Eye exam: Present: normal appearance, PERRL Pupils: Present: normal accommodation ENT exam: Present: normal exam, normal oropharynx, mucous membranes moist Neck exam: Present: normal inspection, full ROM Respiratory exam: Present: normal lung sounds bilaterally Cardiovascular Exam: Present: regular rate, normal rhythm, normal heart sounds GI/Abdominal exam: Present: soft, normal bowel sounds Extremities exam: Present: normal inspection, full ROM Back exam: Present: normal inspection, full ROM Neurological exam: Present: alert, oriented X3, CN II-XII intact Psychiatric exam: Present: normal affect, normal mood Skin exam: Present: warm, dry Course Vital Signs 01/30/23 23:44 Temperature 97.6 F Pulse Rate 62 Respiratory 14 Rate Blood Pressure 173/69 O2 Sat by Pulse 99 Oximetry EKG Findings - EKG Comments: EKG Findings:: An EKG was obtained and was interpreted by myself showing a rate of 68, ND interval of 184, QRS duration 92 and QTC of 391. This EKG showed a normal sinus rhythm with no ST segment elevation or depression noted. Medical Decision Making - Medical Decision Making Was pt. sent in by a medical professional or institution (, PA, BALL MILL OPERATOR, urgent care, hospital, or skilled nursing...) When possible be specific @ -No Did you speak to anyone other than the patient for history (EMS, parent, family, police, friend...)? What history was obtained from this source @ -No Did you review nursing and triage notes (agree or disagree)? Why? @ -I reviewed and agree with nursing and triage notes Were old charts reviewed (outside hosp., previous admission, EMS record, old EKG, old radiological studies, urgent care reports/EKG's, skilled nursing records)? Report findings @ -No old charts were reviewed Differential Diagnosis (chest pain, altered mental status, abdominal pain women, abdominal pain men, vaginal bleeding, weakness, fever, dyspnea, syncope, headache, dizziness, GI bleed, back pain, seizure, CVA, palpatations, mental health)? @ -ACS, pneumonia, pneumothorax EKG interpreted by me (3pts min.). @ -As above X-rays interpreted by me (1pt min.). @ -Chest x-ray was obtained and was interpreted by myself showing osteopenia with chronic compression fractures. There was cardiomegaly with no consolidative changes or pleural effusions noted. CT interpreted by me (1pt min.). @ -None done U/S interpreted by me (1pt. min.). @ -None done What testing was considered but not performed or refused? (CT, X-rays, U/S, labs)? Why? @ -None What meds were considered but not given or refused? Why? @ -None Did you discuss the management of the patient with other professionals (professionals i.e. , PA, BALL MILL OPERATOR, lab, RT, psych nurse, social science analyst, plastic molder, teacher, seaman officer, case management rn)? Give summary @ -No Was smoking cessation discussed for >3mins.? @ -No Was critical care preformed (if so, how long)? @ -No Were there social determinants of health that impacted care today? How? (Homelessness, low income, unemployed, alcoholism, drug addiction, transportation, low edu. Level, literacy, decrease access to med. care, senior care, rehab)? @ -No Was there de-escalation of care discussed even if they declined (Discuss DNR or withdrawal of care, Hospice)? DNR status @ -No What co-morbidities impacted this encounter? (DM, HTN, Smoking, COPD, CAD, Cancer, CVA, ARF, Chemo, Hep., AIDS, mental health diagnosis, sleep apnea, morb id obesity)? @ -Hypertension, hyperlipidemia, Crohn's disease Was patient admitted / discharged? Hospital course, mention meds given and route, prescriptions, significant lab abnormalities, going to OR and other pertinent info. @ -The patient was seen and evaluated emergency department. On physical exam, the patient was resting in bed without any acute distress. Vital signs admission were stable. Due to the nature the patient's left sided chest pain, laboratory workup, chest x-ray and EKG were obtained. Laboratory workup was obtained that showed a sodium of 124 but was near her baseline and due to her severe Crohn's disease, the patient did state that this was normal and even improved for her baseline. The rest of laboratory workup was within normal limits and chest x-ray was negative. The patient was given Toradol for her pain and on reevaluation stated that she had significant improvement of the pain. The patient was offered observation for cardiology to evaluate due to the patient's left-sided chest pain and medical problems however the patient stated that she did not want to do this and would rather follow-up in the office for further workup and evaluation. The patient was advised report back to the emergency department if she had worsening pain or distress the patient was agreeable and understanding of these instructions. All of her questions were answered appropriate. The patient was discharged home in stable condition with her . Undiagnosed new problem with uncertain prognosis? @ -No Drug Therapy requiring intensive monitoring for toxicity (Heparin, Nitro, Insulin, Cardizem)? @ -No Were any procedures done? @ -No Diagnosis/symptom? @ -Chest pain, NOS Acute, or Chronic, or Acute on Chronic? @ -Acute Uncomplicated (without systemic symptoms) or Complicated (systemic symptoms)? @ -Uncomplicated Side effects of treatment? @ -No Exacerbation, Progression, or Severe Exacerbation? @ -No Poses a threat to life or bodily function? How? (Chest pain, [place], [place], pneumonia, PE, COPD, DKA, ARF, appy, cholecystitis, CVA, Diverticulitis, Homicidal, Suicidal, threat to staff... and all critical care pts) @ -No - Lab Data Result diagrams: 01/31/23 01:09 01/31/23 01:09 Lab Results 01/31/23 01/31/23 01/31/23 Range/Units 01:09 01:09 01:09 WBC 10.5 (3.8-10.6) k/uL RBC 4.65 (3.80-5.40) m/uL Hgb 14.4 (11.4-16.0) gm/dL Hct 42.9 (34.0-46.0) % MCV 92.4 (80.0-100.0) fL MCH 30.9 (25.0-35.0) pg MCHC 33.5 (31.0-37.0) g/dL RDW 12.9 (11.5-15.5) % Plt Count 197 (150-450) k/uL MPV 8.1 Neutrophils % 46 % Lymphocytes % 42 % Monocytes % 8 % Eosinophils % 1 % Basophils % 0 % Neutrophils # 4.8 (1.3-7.7) k/uL Lymphocytes # 4.4 (1.0-4.8) k/uL Monocytes # 0.8 (0-1.0) k/uL Eosinophils # 0.1 (0-0.7) k/uL Basophils # 0.0 (0-0.2) k/uL PT 10.0 (9.0-12.0) sec INR 0.9 (<1.2) APTT 24.2 (22.0-30.0) sec Sodium 124 L (137-145) mmol/L Potassium 5.1 (3.5-5.1) mmol/L Chloride 92 L (98-107) mmol/L Carbon Dioxide 25 (22-30) mmol/L Anion Gap 7 mmol/L BUN 14 (7-17) mg/dL Creatinine 0.67 (0.52-1.04) mg/dL Est GFR (CKD-EPI)AfAm >90 (>60 ml/min/1.73 sqM) Est GFR (CKD-EPI)NonAf >90 (>60 ml/min/1.73 sqM) Glucose 100 H (74-99) mg/dL Calcium 10.2 (8.4-10.2) mg/dL Magnesium 1.6 (1.6-2.3) mg/dL Total Bilirubin 0.5 (0.2-1.3) mg/dL AST 54 H (14-36) U/L ALT 46 H (4-34) U/L Alkaline Phosphatase 112 (38-126) U/L Troponin I (0.000-0.034) ng/mL NT-Pro-B Natriuret Pep pg/mL Total Protein 6.8 (6.3-8.2) g/dL Albumin 3.9 (3.5-5.0) g/dL 01/31/23 01/31/23 Range/Units 01:09 01:09 WBC (3.8-10.6) k/uL RBC (3.80-5.40) m/uL Hgb (11.4-16.0) gm/dL Hct (34.0-46.0) % MCV (80.0-100.0) fL MCH (25.0-35.0) pg MCHC (31.0-37.0) g/dL RDW (11.5-15.5) % Plt Count (150-450) k/uL MPV Neutrophils % % Lymphocytes % % Monocytes % % Eosinophils % % Basophils % % Neutrophils # (1.3-7.7) k/uL Lymphocytes # (1.0-4.8) k/uL Monocytes # (0-1.0) k/uL Eosinophils # (0-0.7) k/uL Basophils # (0-0.2) k/uL PT (9.0-12.0) sec INR (<1.2) APTT (22.0-30.0) sec Sodium (137-145) mmol/L Potassium (3.5-5.1) mmol/L Chloride (98-107) mmol/L Carbon Dioxide (22-30) mmol/L Anion Gap mmol/L BUN (7-17) mg/dL Creatinine (0.52-1.04) mg/dL Est GFR (CKD-EPI)AfAm (>60 ml/min/1.73 sqM) Est GFR (CKD-EPI)NonAf (>60 ml/min/1.73 sqM) Glucose (74-99) mg/dL Calcium (8.4-10.2) mg/dL Magnesium (1.6-2.3) mg/dL Total Bilirubin (0.2-1.3) mg/dL AST (14-36) U/L ALT (4-34) U/L Alkaline Phosphatase (38-126) U/L Troponin I 0.021 (0.000-0.034) ng/mL NT-Pro-B Natriuret Pep 480 pg/mL Total Protein (6.3-8.2) g/dL Albumin (3.5-5.0) g/dL Disposition Clinical Impression: Chest pain Disposition: HOME SELF-CARE Condition: Stable Instructions (If sedation given, give patient instructions): Chest Pain (ED) Is patient prescribed a controlled substance at d/c from ED?: No Referrals: Benito Diaz MD [Primary Care Provider] - 1-2 days Time of Disposition: 02:20
[2023-01-31 01:26] LABS: Basophils % (A) 0 %; Eosinophils # (A) 0.1 k/uL (0-0.7); Eosinophils % (A) 1 %; HCT 42.9 % (34.0-46.0); HGB 14.4 gm/dL (11.4-16.0); Lymphocytes # (A) 4.4 k/uL (1.0-4.8); Lymphocytes % (A) 42 %; MCH 30.9 pg (25.0-35.0); MCHC 33.5 g/dL (31.0-37.0); MCV 92.4 fL (80.0-100.0); Mean Platelet Volume 8.1; Monocytes # (A) 0.8 k/uL (0-1.0); Monocytes % (A) 8 %; Neutrophils # (A) 4.8 k/uL (1.3-7.7); Neutrophils % (A) 46 %; Platelet Count 197 k/uL (150-450); RBC 4.65 m/uL (3.80-5.40); RDW 12.9 % (11.5-15.5); WBC 10.5 k/uL (3.8-10.6)
[2023-01-31 01:45] LABS: INR 0.9 (<1.2); Partial Thromboplastin Time 24.2 sec (22.0-30.0)
[2023-01-31 01:53] LABS: ALT 46 U/L (4-34); AST 54 U/L (14-36); African American GFR (CKD) >90 (>60 ml/min/1.73 sqM); Albumin 3.9 g/dL (3.5-5.0); Alkaline Phosphatase 112 U/L (38-126); Anion Gap 7 mmol/L; Blood Urea Nitrogen 14 mg/dL (7-17); Calcium 10.2 mg/dL (8.4-10.2); Carbon Dioxide 25 mmol/L (22-30); Chloride 92 mmol/L (98-107); Glucose 100 mg/dL (74-99); Magnesium 1.6 mg/dL (1.6-2.3); Non-African American GFR(CKD) >90 (>60 ml/min/1.73 sqM); Sodium 124 mmol/L (137-145); Total Bilirubin 0.5 mg/dL (0.2-1.3); Total Protein 6.8 g/dL (6.3-8.2)
[2023-01-31] MEDS ORDERED: KETOROLAC 15 MG/ML 1 ML VIAL IVP STA (01:57)
[2023-01-31 02:22] LABS: Potassium 5.1 mmol/L (3.5-5.1)
[2023-01-31 02:50] VITALS: BP 129/92; PULSE 76; RESP 18
== END 2023-01-31 02:50 | disposition home or self-care (01) ==
LOC: EC 23:43
DX: R07.89 Other chest pain (principal); I10 Essential (primary) hypertension; E78.5 Hyperlipidemia, unspecified; J44.9 Chronic obstructive pulmonary disease, unspecified; M85.80 Other specified disorders of bone density and structure, unspecified site; Z79.899 Other long term (current) drug therapy; Z87.891 Personal history of nicotine dependence; Z88.1 Allergy status to other antibiotic agents; Z88.8 Allergy status to other drugs, medicaments and biological substances; Z91.018 Allergy to other foods
CPT/HCPCS: 36415; 93005; 83880; 80053; 83735; 84484; 85025; 85610; 85730; 71046; 99285; 96374; J1885

== ENCOUNTER → 2023-07-20 | Outpatient (CLI) | payer BC ==
--- NOTE | 2023-07-20 16:13 | BD ---
EXAMINATION TYPE: Axial Bone Density DATE OF EXAM: 07/20/2023 CLINICAL HISTORY: 62 years old Female. ICD-10 CODE: Z780 ASYMPTO BEENA Height: 57in Weight: 148lb FRAX RISK QUESTIONS: Glucocorticoids (More than 3mos): yes, inhaler (Ex: prednisone, prednisolone, methylprednisolone, dexamethasone, and hydrocortisone). History of Fracture in Adulthood: yes Secondary Osteoporosis: RISK FACTORS HISTORY OF: Family History of Osteoporosis: yes Postmenopausal woman: yes Lost more than 2 inches in height since high school: yes MEDICATIONS: Prednisone or other steroids: inhaler How Lon year Additional Medications: Additional History: History of thoracic fx, tibia fx and rib fx EXAM MEASUREMENTS: Bone mineral densitometry was performed using the [employer] System. Bone mineral density as measured about the Lumbar spine is: ----- L1-L4(G/cm2): 0.830 T Score Values are as follows: ----- L1: -3.0 ----- L2: -3.1 ----- L3: -2.9 ----- L4: -2.8 ----- L1-L4: -2.9 Z Score Values are as follows: ----- L1: -1.5 ----- L2: -1.6 ----- L3: -1.4 ----- L4: -1.3 ----- L1-L4: -1.4 Bone mineral density has: Decreased -9.5% since study of: 02-17-2011 Bone mineral density about the R hip (g/cm2): 0.572 Bone mineral density about the L hip (g/cm2): 0.597 T Score values are as follows: -----R Neck: -3.2 -----L Neck: -3.0 -----R Total: -3.5 -----L Total: -3.3 Z Score values are as follows: -----R Neck: -1.8 -----L Neck: -1.6 -----R Total: -2.3 -----L Total: -2.1 Bone mineral density has: Decreased -15.5% since study of: 02-17-2011 FRAX%s: The graph provided illustrates a 26.9% chance for a major osteoporotic fx and a 8.6% chance f or the hips probability for fx in 10 years time. IMPRESSION: Osteoporosis (T Score less than -2.5). There is increased fracture risk and therapy is usually indicated based on age. Re-Screen 1-2 years. NOTE: T-SCORE=SD OF THE YOUNG ADULT MEAN.
--- NOTE | 2023-07-21 11:09 | MM ---
Reason for Exam: Screening (asymptomatic). Last mammogram was performed 9 year(s) and 1 month(s) ago. Patient History: Menarche at age 10. Patient has no children. Excisional Biopsy. Excisional Biopsy on the Right side. Excisional Biopsy on the Right side. Benign Excisional Biopsy. Maternal grandmother had breast cancer. Paternal aunt had breast cancer. Risk Values: Nicole 5 year model risk: 2.7%. NCI Lifetime model risk: 10.6%. Prior Study Comparison: 07/11/2009 Bilateral Diagnostic Mammogram, [facility]. 02/17/2011 Bilateral Screening Mammogram, [facility]. 06/12/2014 Bilateral Screening Mammogram, [facility]. Tissue Density: There are scattered fibroglandular densities. Findings: Analyzed By CAD. Asymmetric density central left cc view 4.5 cm from the nipple. Additional views recommended. No suspicious calcifications within either breast. Overall Assessment: Incomplete: need additional imaging evaluation, BI-RAD 0 Management: Diagnostic Mammogram of the left breast. . Patient should continue monthly self-breast exams. A clinical breast exam by your physician is recommended on an annual basis. This exam should not preclude additional follow-up of suspicious palpable abnormalities. Note on Nicole scores and lifetime risk: 1. A Nicole score greater than 3% is considered moderate risk. If this is the case, consider specialist referral to assess eligibility for a risk reducing agent. 2. If overall lifetime risk for the development of breast cancer is 20% or higher, the patient may qualify for future screening with alternating mammogram and breast MRI. Electronically signed and approved by: Mati Morrison M.D. Radiologis
== END | disposition home or self-care (01) ==
LOC: RADBDWWP 08:00
PROVIDERS: ATTEND Internal Medicine Geriatric Medicine
DX: Z12.31 Encounter for screening mammogram for malignant neoplasm of breast (principal); M81.0 Age-related osteoporosis without current pathological fracture; Z80.3 Family history of malignant neoplasm of breast; Z78.0 Asymptomatic menopausal state
CPT/HCPCS: 77063; 77067; 77080

== ENCOUNTER → 2023-08-05 | Outpatient (CLI) | payer BC ==
--- NOTE | 2023-08-05 10:32 | MM ---
Reason for Exam: Additional evaluation requested from abnormal screening. Last screening mammogram was performed less than 1 month ago. Patient History: Menarche at age 10. Patient has no children. Excisional Biopsy. Excisional Biopsy on the Right side. Excisional Biopsy on the Right side. Benign Excisional Biopsy. Maternal grandmother had breast cancer. Paternal aunt had breast cancer. Risk Values: Nicole 5 year model risk: 2.7%. NCI Lifetime model risk: 10.6%. Prior Study Comparison: 02/17/2011 Bilateral Screening Mammogram, [facility]. 06/12/2014 Bilateral Screening Mammogram, [facility]. 07/20/2023 Bilateral MG 3D screening mammo w/cad, [facility]. Tissue Density: Left: There are scattered fibroglandular densities. Findings: Analyzed By CAD. Area of asymmetric density centrally on the left CC view becomes less defined on spot 3-D. A small patch of fibroglandular tissue is suspected. Six-month follow-up recommended to reassess. Overall Assessment: Probably benign, BI-RAD 3 Management: Diagnostic Mammogram of the left breast in 6 months. . Results were given to the patient verbally at the time of exam. Patient should continue monthly self-breast exams. A clinical breast exam by your physician is recommended on an annual basis. This exam should not preclude additional follow-up of suspicious palpable abnormalities. Note on Nicole scores and lifetime risk: 1. A Nicole score greater than 3% is considered moderate risk. If this is the case, consider specialist referral to assess eligibility for a risk reducing agent. 2. If overall lifetime risk for the development of breast cancer is 20% or higher, the patient may qualify for future screening with alternating mammogram and breast MRI. Electronically signed and approved by: Tee Metzger M.D. Radiologist
== END | disposition home or self-care (01) ==
LOC: RADMAMWWP 10:03
PROVIDERS: ATTEND Internal Medicine Geriatric Medicine
DX: R92.322 Mammographic fibroglandular density, left breast (principal); Z80.3 Family history of malignant neoplasm of breast
CPT/HCPCS: 77061; 77065

== ENCOUNTER → 2023-08-05 | Outpatient (CLI) | payer BC ==
--- NOTE | 2023-08-05 12:22 | CTL ---
EXAMINATION TYPE: CT Low Dose Lung DATE OF EXAM ORDERED: 08/05/2023 HISTORY: Lung cancer screening CT DLP: 75.[address] CTDI: 2.3 mGy Automated exposure control for dose reduction was used. SCREENING VISIT: Second COMPARISON: 07/21/2022 TECHNIQUE: Low dose computed tomography scan was performed through the chest at 1 mm thick sections a nd reconstructed images in multiple planes at 1 mm and [address] DIAGNOSTIC QUALITY: Satisfactory FINDINGS: There is a 5.8 mm groundglass nodule in the right upper lobe which is stable. There is fissural nodul e on the right which is also stable. No new or suspicious nodule is seen. There is no abnormal airspace/consolidative density. There is mild focal interstitial density in the left upper lobe which is stable. There is no pleural effusion, pleural thickening or pneumothorax. There is mild stable aneurysmal dilatation of ascending thoracic aorta which measures 4 cm. There is no mediastinal, hilar or axillary adenopathy. Limited scanning the upper abdomen reveals no abnormality. No focal osseous lesions are seen. IMPRESSION: 1. Lung RADS category 2 benign nodules. Continue routine screening at yearly intervals. 2. Stable 4 cm ascending thoracic aortic aneurysm. 3. No acute cardiopulmonary disease.
== END | disposition home or self-care (01) ==
LOC: RADCTMAIN 09:44
PROVIDERS: ATTEND Internal Medicine Geriatric Medicine
DX: Z12.2 Encounter for screening for malignant neoplasm of respiratory organs (principal); R91.1 Solitary pulmonary nodule; I35.0 Nonrheumatic aortic (valve) stenosis; I71.21 Aneurysm of the ascending aorta, without rupture; R91.8 Other nonspecific abnormal finding of lung field; Z87.891 Personal history of nicotine dependence
CPT/HCPCS: 71271

== ENCOUNTER → 2024-02-29 | Outpatient (CLI) | payer MEDICARE, BC ==
--- NOTE | 2024-02-29 17:32 | CA ---
Transthoracic Echo Report Name: Little Roberson Age: 63 Gender: F : 1960 Exam Date: 02/29/2024 14:53 Exam Location: [facility] Ht (in): 56 Wt (lb): 150 Ordering Physician: Benito Diaz MD Attending/Referring Phys: Pina Saab [facility] Disk Grinder Brianna Sanchez RDCS Procedure CPT: Indications: I35.0 aortic valve stenosis Cardiac Hx: Technical Quality: Fair Contrast 1: Total Dose (mL): Contrast 2: Total Dose (mL): MEASUREMENTS (Male / Female) Normal Values 2D ECHO LV Diastolic Diameter PLAX 3.5 cm 4.2 - 5.9 / 3.9 - 5.3 cm LV Systolic Diameter PLAX 1.8 cm IVS Diastolic Thickness 1.2 cm 0.6 - 1.0 / 0.6 - 0.9 cm LVPW Diastolic Thickness 1.0 cm 0.6 - 1.0 / 0.6 - 0.9 cm LV Relative Wall Thickness 0.6 RV Internal Dim ED PLAX 2.2 cm LVOT Diameter 1.8 cm Aortic Root Diameter 3.3 cm LA Systolic Diameter LX 2.9 cm 3.0 - 4.0 / 2.7 - 3.8 cm LV Diastolic Volume MOD BP 29.4 cm??? 67 - 155 / 56 - 104 cm??? LV Systolic Volume MOD BP 10.7 cm??? 22 - 58 / 19 - 49 cm??? LV Ejection Fraction MOD BP 63.8 % >= 55 % LV Cardiac Index MOD BP 929.4 cm???/min???m??? LV Diastolic Volume MOD 4C 28.3 cm??? LV Systolic Volume MOD 4C 5.7 cm??? LV Ejection Fraction MOD 4C 80.0 % LV Cardiac Index MOD 4C 1121.8 cm???/min???m??? LV Diastolic Length 4C 5.8 cm LV Systolic Length 4C 2.2 cm LV Diastolic Volume MOD 2C 29.2 cm??? LV Systolic Volume MOD 2C 10.5 cm??? LV Ejection Fraction MOD 2C 63.9 % LV Cardiac Index MOD 2C 925.4 cm???/min???m??? LV Diastolic Length 2C 5.5 cm LV Systolic Length 2C 4.4 cm LA Volume 34.2 cm??? 18 - 58 / 22 - 52 cm??? LA Volume Index 20.4 cm???/m??? 16 - 28 cm???/m??? M-MODE Aortic Root Diameter MM 3.2 cm LA Systolic Diameter MM 3.2 cm LA Ao Ratio MM 1.0 AV Cusp Separation MM 1.1 cm DOPPLER AV Peak Velocity 344.3 cm/s AV Peak Gradient 47.4 mmHg AV Mean Velocity 244.9 cm/s AV Mean Gradient 26.4 mmHg AV Velocity Time Integral 76.8 cm LVOT Peak Velocity 82.2 cm/s LVOT Peak Gradient 2.7 mmHg LVOT Velocity Time Integral 22.2 cm LVOT Stroke Volume 56.6 cm??? LVOT Stroke Volume Index 36.0 ml/m??? LVOT Cardiac Index 2804.8 cm???/min???m??? AV Area Cont Eq vti 0.7 cm??? AV Area Cont Eq pk 0.6 cm??? MV Area PHT 3.4 cm??? Mitral E Point Velocity 112.8 cm/s Mitral A Point Velocity 125.3 cm/s Mitral E to A Ratio 0.9 MV Deceleration Time 224.2 ms FINDINGS Left Ventricle Left ventricular ejection fraction is estimated at 60-65 %. Mildly increased septal wall thickness. Mildly increased posterior wall thickness. No obvious regional wall motion abnormalities. Left ventricular cavity size normal. Right Ventricle Normal right ventricular size and function. Unable to estimate the right ventricular systolic pressure. Right Atrium Normal right atrial size. Left Atrium Normal left atrial size .Lipomatous interatrial septum. Mitral Valve Structurally normal mitral valve. Trace mitral regurgitation. No mitral stenosis. Aortic Valve Aortic valve not well visualized. Cannot rule out bicuspid aortic valve. Moderate aortic stenosis with a peak gradient of 47 mmHg and a mean gradient of 26mmHg. Focal thickening of the aortic valve cusps. Tricuspid Valve Structurally normal tricuspid valve. Trace tricuspid regurgitation. No tricuspid stenosis. Pulmonic Valve Structurally normal pulmonic valve. Mild pulmonic regurgitation. No pulmonic stenosis. Pericardium Echo free space anterior to the right ventricle likely represents a fat pad. No pericardial or pleural effusion. Aorta Normal size aortic root and proximal ascending aorta. CONCLUSIONS Normal LV function Lipomatous hypertrophy of the interatrial septum Moderate aortic stenosis Previewed by: Dr. Alexx Lerner MD (Electronically Signed) Final Date: 29 February 2024 17:31
== END | disposition home or self-care (01) ==
LOC: RADECHMAIN 14:42
PROVIDERS: ATTEND Internal Medicine Geriatric Medicine
DX: I35.0 Nonrheumatic aortic (valve) stenosis (principal); D17.4 Benign lipomatous neoplasm of intrathoracic organs; R92.8 Other abnormal and inconclusive findings on diagnostic imaging of breast
CPT/HCPCS: 93306

== ENCOUNTER → 2024-11-24 | Outpatient (CLI) | payer MEDICARE, BC ==
--- NOTE | 2024-11-24 12:45 | CTL ---
EXAMINATION TYPE: CT Low Dose Lung DATE OF EXAM: 11/24/2024 8:38 AM COMPARISON: 07/16/2023 CLINICAL INDICATION: Female, 64 years old with history of Z12.2 SCREENING Z87.891 FORMER SMOKER, form er smoker, screening, History of tobacco use. Former smoker with approximately 22 pack year history. TECHNIQUE: Low dose computed tomography scan was performed through the chest at 1 mm thick sections a nd reconstructed images in multiple planes at 1 mm and [address] DLP: 77.6 mGycm, CT CTDI: 2.5 mGy, Automated exposure control for dose reduction was used. CT DIAGNOSTIC QUALITY: Satisfactory FINDINGS: The heart is normal size with trace pericardial fluid. Minimal coronary calcification at the left mingo n bifurcation. Some lipomatous hypertrophy of the interatrial septum. Moderate aortic valve calcifica tions. Ectatic ascending aorta 3.9 cm. Bovine configuration to the aortic arch. Minimal atherosclerotic calc ifications. No thoracic lymphadenopathy by CT size criteria. Similar strandy scarring and atelectasis inferior lingula. Mild emphysematous changes. Lesser degree of strandy scarring in the right middle lobe. No consolidation or pleural effusion. A few scattered 5 mm and smaller pulmonary nodules remain unchanged, one of which represents a benign calcified granuloma on the right. Visualized upper abdomen shows nonspecific 1 cm nodularity to the left adrenal gland which remains un changed. 8 mm cyst redemonstrated left hepatic dome. There is an accentuated midthoracic kyphosis with stable mild to moderate compression deformity at T5 as well as stable sclerotic focus, probably bone island at T4. Old healed left-sided rib fracture de formities. IMPRESSION: 1. Lung RADS 2, benign. A few scattered stable 5 mm and smaller pulmonary nodules on annual follow-up . 2. COPD with mild emphysema. CT LUNG RAD AND CT CHEST RECOMMENDATION: Lung-Rad 2 Benign Appearance or Behavior: Continue annual sc reening with LDCT in 12 months. S Modifier (other clinically significant findings): None [facility], , 11/24/2024 12:42 PM
== END | disposition home or self-care (01) ==
LOC: RADCTMAIN 08:19
PROVIDERS: ATTEND Internal Medicine Geriatric Medicine
DX: Z12.2 Encounter for screening for malignant neoplasm of respiratory organs (principal); J44.9 Chronic obstructive pulmonary disease, unspecified; R91.8 Other nonspecific abnormal finding of lung field; J43.9 Emphysema, unspecified; Z87.891 Personal history of nicotine dependence
CPT/HCPCS: 71271